=== PATIENT | male | born 1955 | race Caucasian/White ===

== ENCOUNTER → 2020-02-06 16:21 | Outpatient (REF) | payer BC, SELFPAY | LOC: ANHLAB 16:21 | PROVIDERS: Visit Provider Nurse Practitioner | DX: D49.2 Neoplasm of unspecified behavior of bone, soft tissue, and skin (principal) | CPT/HCPCS: 88305 ==

== ENCOUNTER 2020-04-18 14:00 | Outpatient (CLI) | payer BC, SELFPAY ==
--- NOTE | ~2020-04-18 | US_ITS ---
EXAMINATION: US venous doppler [facility] DATE: 04/18/2020 14:54 INDICATION: Left lower limb pain TECHNIQUE: Grayscale ultrasound images without and with compression and Doppler ultrasound images of the left lower extremity veins were obtained. COMPARISON: None. FINDINGS: The visualized portions of left common femoral vein, profunda (deep) femoral vein, femoral vein, popl iteal vein, peroneal veins, posterior tibial veins, gastrocnemius vein and greater saphenous vein out flow are patent. IMPRESSION: 1. No deep venous thrombosis in the left lower limb. Reviewed, dictated and finalized at location A. E ECOLOGIST
== END 2020-04-18 14:01 | disposition home or self-care (01) ==
PROVIDERS: PCP Physician Assistant; Visit Provider Physician Assistant
DX: M79.602 Pain in left arm (principal); M79.89 Other specified soft tissue disorders; Z72.3 Lack of physical exercise
CPT/HCPCS: 93971

== ENCOUNTER 2021-04-14 10:35 | Emergency (ER) | payer OTHER, SELFPAY ==
--- NOTE | ~2021-04-14 | CT_ITS ---
EXAMINATION: CT thoracic lumbar wo con DATE: 04/14/2021 12:54 INDICATION: Back pain. TECHNIQUE: Computed tomography (CT) of the thoracic and lumbar spine was performed without intravenou s contrast. Automated exposure control and iterative reconstruction technique were employed. The dose -length product was 1694.30 mGy-cm. COMPARISON: None FINDINGS: CT THORACIC SPINE: Calcified left lung nodules and calcified left hilar lymph nodes are consistent wi th old granulomatous disease. There are patchy airspace and groundglass opacities in the visualized p ortions of left upper lobe and the lower lobes. There is 12 degrees levoscoliosis of upper thoracic s pine. There is moderately decreased disc height at T5-T6 and T6-T7 and from T8-T9 through T11-T12 wit h endplate remodeling. There is mild chronic anterior wedging of T12 vertebral body. There is multile bharti facet joint osteoarthritis. There is mild central canal stenosis at T8-T9, T10-T11, and T11-T12. There is mild right neural foraminal stenosis at T2-T3. CT LUMBAR SPINE: There is 4 degrees dextrocurvature of lower lumbar spine. There is a chronic burst f racture of L4 with 4/5 loss of height. There are changes of posterior fusion procedure from L3 to L5 with pedicle screws in L3 and L5. There is mild chronic anterior wedging of L1 and L2 vertebral vincenzo s. There is mildly decreased disc height at L1-L2 and L2-L3 and severely decreased disc height at L5- S1 with endplate remodeling. The following disc levels are specifically discussed: L1-L2: The disc is bulging. There is moderate bilateral facet joint osteoarthritis. There is mild frank ateral neural foraminal stenosis. There is mild central canal stenosis. L2-L3: The disc is bulging. There is severe bilateral facet joint osteoarthritis. There is mild bilat eral neural foraminal stenosis. There is mild central canal stenosis. L3-L4: The disc does not extend beyond the endplate margin. There is no facet joint hypertrophy. Ther e is no neural foraminal stenosis. There is no central canal stenosis. L4-L5: The disc does not extend beyond the endplate margin. There is mild bilateral facet joint hyper trophy. There is no neural foraminal stenosis. There is no central canal stenosis. L5-S1: The disc is bulging. There is moderate bilateral facet joint osteoarthritis. There is mild frank ateral neural foraminal stenosis. There is mild central canal stenosis. IMPRESSION: 1. Multifocal lung disease suspicious for atypical pneumonia. 2. Moderate thoracic spondylosis. 3. Levoscoliosis of upper thoracic spine. Severe lower lumbar spondylosis. 4. Posterior fusion procedure from L3 to L5. Reviewed, dictated and finalized at location A. ER HUMAN RESOURCES MANAGER
[2021-04-14 10:44] VITALS: BP 163/105; PULSE 109; RESP 14; TEMP 36.6; O2SAT 98
[2021-04-14] MEDS: ACETAMINOPHEN 500 MG TABLET 1000 MG PO (12:17)
--- NOTE | 2021-04-14 12:24 | ED.BACK ---
HPI - Back Pain/Injury General Chief Complaint: Back Pain/Injury Stated Complaint: back pain since October Time Seen by Provider: 04/14/21 11:49 Source: patient Mode of arrival: ambulatory Limitations: no limitations History of Present Illness HPI Narrative: This is a 65-year-old male that presents the emergency department for low back pain over the last 5-months. Reports he had an injury when he fell off of a tractor. Reports he was evaluated after this fall at an outside facility. Reports since that fall he has been having worsening low back pain. Reports history of lumbar spine surgery years ago. The pain is radiating into the left buttock. He has not been taking anything for pain. Denies fever, saddle anesthesia, or bowel/bladder incontinence. Related Data Allergies Allergy/AdvReac Type Severity Reaction Status Date / Time No Known Allergies Allergy Mild Verified 04/14/21 12:15 Review of Systems Review of Systems: CONSTITUTIONAL: Denies fever SKIN: Denies rash MUSCULOSKELETAL: Reports back pain, joint pain, and myalgia. NEUROLOGIC: Denies numbness, or weakness. All systems reviewed & are unremarkable except as noted in HPI and below PMFSH Past Medical History Medical History (Updated 04/14/21 @ 13:54 by Rose Schaffer PA-C) Fracture of left distal radius September 2020 Surgical History Surgical History History of spinal fusion Family History Family History Mother Aneurysm Social History Social History Smoking status: Smoker, status unknown Alcohol intake: current Substance use: never 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 Gender identity (if verbalized by the patient): Male Exam Narrative: GENERAL: Well-appearing, well-nourished, and in no acute distress. HEAD: Normocephalic, atraumatic. EYES: EOMI. CHEST: Clear to auscultation. No respiratory distress. No wheezes rales or rhonchi HEART: Regular rate and rhythm. No murmur heard. Normal peripheral pulses. BACK: No midline spinal tenderness. EXTREMITIES: Normal range of motion. No edema. Strength equal in bilateral lower extremities (5/5) SKIN: Warm, dry, no rash. NEURO: No focal deficits. Alert and oriented x3. PSYCH: Normal mood and affect Course Vital Signs Vital signs: Vital Signs Temperature 97.8 F 04/14/21 10:44 Pulse Rate 109 H 04/14/21 10:44 Respiratory Rate 14 04/14/21 10:44 Blood Pressure 163/105 H 04/14/21 10:44 Pulse Oximetry 98 04/14/21 10:44 Temperature 97.8 F 04/14/21 10:44 Pulse Rate 109 H 04/14/21 10:44 Respiratory Rate 14 04/14/21 10:44 Blood Pressure 163/105 H 04/14/21 10:44 Pulse Oximetry 98 04/14/21 10:44 MDM - Back Pain/Injury MDM Narrative Medical decision making narrative: Patient presents to the emergency department for mid to low back pain ongoing for months. No recent injury or trauma. Patient is neurologically intact. CT scan of the thoracic and lumbar spine shows moderate thoracic spondylosis. Severe lower lumbar spondylosis. Posterior fusion procedure from L3-L5. Also shows findings suspicious for atypical pneumonia. Patient does report that he recently had a cold. Patient currently is afebrile and nontoxic-appearing. Oxygen saturation is normal on room air. He does report he is Covid vaccinated. He will be started on oral antibiotics for atypical pneumonia. Instructed on continued care of low back pain. He is to follow-up with primary care doctor. He was given warnings to return to the ER Imaging Data Radiologist's impression: ITS Impressions Thoracic/Lumbar Spine CT 04/14/21 13:02 IMPRESSION: 1. Multifocal lung disease suspicious for atypical pneumonia. 2. Moderate thoracic spondylosis. 3. Levoscoliosis of upper thoracic spine. Severe lower lumbar spondylosis. 4. Posterior fusion
== END 2021-04-14 14:07 | disposition home or self-care (01) ==
PROVIDERS: Emergency Provider Emergency Medicine
DX: M54.50 Low back pain, unspecified (principal); J18.9 Pneumonia, unspecified organism; Z98.1 Arthrodesis status; M47.814 Spondylosis without myelopathy or radiculopathy, thoracic region; M47.816 Spondylosis without myelopathy or radiculopathy, lumbar region
CPT/HCPCS: 72128; 72131; 99284; A9270

== ENCOUNTER 2023-03-09 15:22 | Outpatient (CLI) | payer MEDICARE, SELFPAY ==
[2023-03-09 16:20] LABS: Alanine Aminotransferase 27 U/L (6-50); Albumin Level 4.6 g/dL (3.5-5.1); Alkaline Phosphatase 59 U/L (38-126); Anion Gap 6 mmol/L (8-16); Aspartate Amino Transferase 29 U/L (17-59); Bilirubin,Total 1.1 mg/dL (0.2-1.3); Blood Urea Nitrogen 17 mg/dL (9-20); Calcium 9.3 mg/dL (8.4-10.2); Carbon Dioxide 27 mmol/L (22-30); Chloride 106 mmol/L (98-107); Cholesterol 193 mg/dL (0-200); Estimated Glomerular Filt Rate > 60; Glucose 98 mg/dL (65-110); HDL Direct 57 mg/dL; Sodium 139 mmol/L (137-145); Triglycerides 64 mg/dL (<150)
[2023-03-09 16:30] LABS: LDL Cholesterol Direct 101 mg/dL
== END 2023-03-09 15:23 | disposition home or self-care (01) ==
PROVIDERS: PCP Family Medicine; Visit Provider Physician Assistant Medical
DX: E78.2 Mixed hyperlipidemia (principal)
CPT/HCPCS: 36415; 80053; 80061

== ENCOUNTER 2023-09-07 13:53 | Outpatient (CLI) | payer MEDICARE, SELFPAY ==
[2023-09-07 14:35] LABS: Alanine Aminotransferase 17 U/L (6-50); Albumin Level 4.9 g/dL (3.5-5.1); Alkaline Phosphatase 61 U/L (38-126); Anion Gap 12 mmol/L (4-12); Aspartate Amino Transferase 23 U/L (17-59); Blood Urea Nitrogen 17 mg/dL (9-20); Calcium 9.8 mg/dL (8.4-10.2); Carbon Dioxide 22 mmol/L (22-30); Chloride 108 mmol/L (98-107); Cholesterol 200 mg/dL (0-200); Estimated Glomerular Filt Rate > 60; Glucose 106 mg/dL (65-110); HDL Direct 59 mg/dL; Potassium 3.9 mmol/L (3.4-5.0); Sodium 142 mmol/L (137-145); Triglycerides 78 mg/dL (<150)
[2023-09-07 14:47] LABS: LDL Cholesterol Direct 117 mg/dL
[2023-09-07 15:05] LABS: Prostate Specific Antigen 0.5 ng/mL (< OR = 4.0)
== END 2023-09-07 13:54 | disposition home or self-care (01) ==
LOC: ANHLAB 13:58
PROVIDERS: PCP Family Medicine; Visit Provider Physician Assistant Medical
DX: Z12.5 Encounter for screening for malignant neoplasm of prostate (principal); E78.2 Mixed hyperlipidemia
CPT/HCPCS: 36415; 80053; 80061; 84153; G0103

== ENCOUNTER 2024-03-09 12:12 | Outpatient (CLI) | payer MEDICARE, SELFPAY ==
--- NOTE | ~2024-03-09 | XR_ITS ---
XR chest 2V Ordering provider: Batsheva Miranda PA-C History: 68 years Male with . R06.00 - Dyspnea, unspecified, SOB . Comparison: May 02, 2008 FINDINGS: MEDIASTINUM: The cardiac silhouette is slightly enlarged. Congestive dillan. LUNGS: No infiltrates, effusions or pneumothorax. Bilateral interstitial changes are noted. Pulmonary edema or pneumonitis cannot be excluded. OTHER: No free air under the diaphragm. IMPRESSION: Cardiomegaly with congestive dillan and bilateral interstitial changes which may indicate pulmonary kym ma versus pneumonitis. Clinical correlation and follow-up advised. Reviewed, dictated and finalized at location A. IMPRESSION: Cardiomegaly with congestive dillan and bilateral interstitial changes which may indicate pulmonary edema versus pneumonitis. Clinical correlation and follow-up advised.
--- NOTE | 2024-03-09 12:32 | ECG_ITS ---
Test Date: 2024-03-09 12:49:42 Measurements Intervals [place] Rate: 152 P: 0 SD: 0 QRS: 22 QRSD: 90 T: -4 QT: 284 QTc: 452 Interpretive Statements ATRIAL FIBRILLATION WITH RAPID VENTRICULAR RESPONSE WITH ABERRANT CONDUCTION OR VENTRICULAR PREMATURE COMPLEXES CRITICAL TEST RESULT No previous ECG available for comparison Electronically Signed On 03-09-2024 12:55:08 CDT by Mandeep Hoff M.D.
[2024-03-09 13:08] LABS: Alanine Aminotransferase 28 U/L (6-50); Albumin Level 4.3 g/dL (3.5-5.1); Alkaline Phosphatase 40 U/L (38-126); Anion Gap 8 mmol/L (4-12); Aspartate Amino Transferase 31 U/L (17-59); Bilirubin,Total 1.2 mg/dL (0.2-1.3); Blood Urea Nitrogen 27 mg/dL (9-20); Calcium 8.7 mg/dL (8.4-10.2); Carbon Dioxide 23 mmol/L (22-30); Chloride 108 mmol/L (98-107); Cholesterol 160 mg/dL (0-200); Estimated Glomerular Filt Rate > 60; Glucose 102 mg/dL (65-110); HDL Direct 63 mg/dL; Potassium 4.2 mmol/L (3.4-5.0); Sodium 139 mmol/L (137-145); Triglycerides 65 mg/dL (<150)
[2024-03-09 13:18] LABS: LDL Cholesterol Direct 69 mg/dL
== END 2024-03-09 12:13 | disposition home or self-care (01) ==
PROVIDERS: PCP Family Medicine; Visit Provider Student in an Organized Health Care Education/Training Program
DX: I49.9 Cardiac arrhythmia, unspecified (principal); R06.00 Dyspnea, unspecified; I10 Essential (primary) hypertension
CPT/HCPCS: 36415; 71046; 80053; 80061; 93005

== ENCOUNTER 2024-03-09 13:56 | Observation (INO) | payer MEDICARE, SELFPAY ==
[2024-03-09] VITALS (21 sets, daily range): BP systolic 103–149; BP diastolic 68–101; PULSE 67–150; RESP 15–21; TEMP 36.6–36.7; O2SAT 94–100; BMI 34.7
--- NOTE | ~2024-03-09 | CT_ITS ---
CTA chest PE protocol Ordering provider: Jnenifer Vazquez MD History: 68 years Male with . afib, positive dimer . Comparison: None. Technique: CT angiogram chest was performed following timed intravenous injection of contrast. Thin s lice axial images and reformatted coronal images were obtained. Three dimensional reformatted images of the chest were also obtained using a [employer] workstation. . Automated exposure control and iterati ve reconstruction technique were employed. The dose-length product was 853.60 mGy-cm. Findings: PULMONARY ARTERIES: No pulmonary embolus. VISUALIZED THORACIC INLET: Normal. MEDIASTINUM: Aorta/coronary arteries: Ascending aorta measures 4.6 cm. Soft tissue density seen around the ascendi ng aorta and slightly anterior to the arch. No contrast extravasation is seen. Possibility of a peric ardial effusion and less likely hematoma cannot be excluded. Clinical correlation and echocardiograph y is advised. The Hounsfield unit is 8 which is in favor of pericardial effusion. Heart/other: The heart is moderately enlarged. Trace of pericardial effusion is seen around the hear t. Lymph nodes: No mediastinal or hilar adenopathy. LUNGS: No pulmonary nodules or masses. No infiltrates or effusions. No pneumothorax. VISUALIZED UPPER ABDOMEN: Cholelithiasis. Left adrenal adenoma measuring 2.2 cm. Otherwise, the visua lized upper abdomen is normal. MUSCULOSKELETAL: Soft tissues: The superficial soft tissues are normal. Bones: Age appropriate degenerative changes of the spine. IMPRESSION: 1. Fluid seen anterior to the ascending aorta and arch which is most likely pericardial effusion wit h minimal effusion seen posteriorly to the heart. Echocardiography for further evaluation advised. 2. No pulmonary embolism. 3. No acute cardiopulmonary pathology. 4. Cardiomegaly 5. Cholelithiasis. 6. Left adrenal adenoma. Reviewed, dictated and finalized at location A. IMPRESSION: 1. Fluid seen anterior to the ascending aorta and arch which is most likely pe ricardial effusion with minimal effusion seen posteriorly to the heart. Echocar diography for further evaluation advised. 2. No pulmonary embolism. 3. No acute cardiopulmonary pathology. 4. Cardiomegaly 5. Cholelithiasis. 6. Left adrenal adenoma.
--- NOTE | 2024-03-09 14:09 | ED_ITS ---
HPI - Arrhythmia/Palpitations General Chief Complaint: Arrhythmia/Palpitations <Rose Schaffer PA-C - Last Filed: 03/10/24 11:45> Stated Complaint: ABNORMAL EKG <Rose Schaffer PA-C - Last Filed: 03/10/24 11:45> Time Seen by Provider: 03/09/24 14:09 <Rose Schaffer PA-C - Last Filed: 03/10/24 11:45> Focused HPI: This is a 68 year old male that presents to the ER for abnormal outpatient EKG. Reports he was called and told to come to the ER. Noted to be in Afib with RVR. No history of this. Does report he has been getting short of breath with exertion. GENERAL: Well-appearing, well-nourished, and in no acute distress. HEAD: Normocephalic, atraumatic. CHEST: Clear to auscultation. ?No respiratory distress. HEART: Tachycardic NEURO: ?Alert and oriented x3. Patient screened in triage and initial orders placed.? ?Additional care and disposition to be based upon?diagnostic testing and treatment. <Rose Schaffer PA-C - Last Filed: 03/10/24 11:45> History of Present Illness HPI narrative: 68-year-old male with history of hypertension presenting with irregular heartbeat. 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 States he has been increasingly short of breath over the last week or so. He initially attributed his symptoms to marinelli dust. He went to see his primary yesterday who ordered an outpatient EKG. This was performed today and he received a call saying to come to the ER for 1. He he currently denies complaints. <Jennifer Vazquez MD - Last Filed: 03/13/24 14:09> Related Data Allergies/Adverse Reactions: Allergies Allergy/AdvReac Type Severity Reaction Status Date / Time No Known Allergies Allergy Mild Verified 03/09/24 21:31 <Rose Schaffer PA-C - Last Filed: 03/10/24 11:45> Review of Systems Review of Systems: All systems reviewed & are unremarkable except as noted in HPI and below <Jennifer Vazquez MD - Last Filed: 03/13/24 14:09> [facility] Past Medical History Medical History: Medical History (Updated 03/11/24 @ 09:23 by Won Mcginnis DO) Fracture of left distal radius September 2020 Obesity (BMI 30.0-34.9) Skin neoplasm <Rose Schaffer PA-C - Last Filed: 03/10/24 11:45> Surgical History Surgical History: Surgical History History of spinal fusion <Rose Schaffer PA-C - Last Filed: 03/10/24 11:45> Family History Family History: Family History Mother Aneurysm Breast cancer Father , At age 85 Colon cancer <Rose Schaffer PA-C - Last Filed: 03/10/24 11:45> Social History Social History: Social History (Updated 03/10/24 @ 04:26 by Abigail Saravia DO) 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 He is single and has never been . He does not have children. He and his brother live in the same farm house that they were raised in. He has a medium-sized dog at home. Code status: Full code (he would not want to be on long-term ventilator support) Surrogate decision maker: Josh Morales (brother) Smoking status: Never smoker Alcohol intake: current Drinks per week: 5 Substance use: never Substance use type: does not use Do You Feel Safe in your Home?: Yes Lack of Transportation: No Lack of Food: Never True Current Housing: I Have Housing Concerned About Future Housing: No Difficulty Paying Gas/Electric Bills: No Difficulty Paying for Meds: No Currently Unemployed: No Education: Decline to Answer Difficulty w/ Childcare or Family Care: No Living arrangements: alone Occupation/Education: occupation 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 EYES: PERRLA and EOMI. ENT: Mucous membranes moist. NECK: Supple. CHEST: Clear to auscultation. No respiratory distress. HEART: tachycardic, irregular rhythm ABDOMEN: Soft, nontender, nondistended EXTREMITIES: Normal range of motion. No edema. SKIN: Warm, dry, no rash. NEURO: No focal deficits. Alert and oriented x3. PSYCH: Normal mood and affect. <Jennifer Vazquez MD - Last Filed: 03/13/24 14:09> Course Vital Signs Vital signs: Vital Signs Temperature 97.8 F 03/09/24 13:57 Pulse Rate 150 H 03/09/24 13:57 Respiratory Rate 20 03/09/24 13:57 Blood Pressure 148/101 H 03/09/24 13:57 Pulse Oximetry 100 03/09/24 13:57 Oxygen Delivery Room Air 03/09/24 13:57 Temperature 97.5 F L 03/13/24 11:22 Pulse Rate 116 H 03/13/24 12:00 Respiratory Rate 20 03/13/24 11:22 Blood Pressure 120/89 03/13/24 11:22 Pulse Oximetry 97 03/13/24 11:22 Oxygen Delivery Room Air 03/13/24 12:00 Fraction of Inspired Oxygen 03/11/24 16:00 <Rose Schaffer PA-C - Last Filed: 03/10/24 11:45> Vital Signs Temperature 97.8 F 03/09/24 13:57 Pulse Rate 150 H 03/09/24 13:57 Respiratory Rate 20 03/09/24 13:57 Blood Pressure 148/101 H 03/09/24 13:57 Pulse Oximetry 100 03/09/24 13:57 Oxygen Delivery Room Air 03/09/24 13:57 Temperature 97.5 F L 03/13/24 11:22 Pulse Rate 116 H 03/13/24 12:00 Respiratory Rate 20 03/13/24 11:22 Blood Pressure 120/89 03/13/24 11:22 Pulse Oximetry 97 03/13/24 11:22 Oxygen Delivery Room Air 03/13/24 12:00 Fraction of Inspired Oxygen 21 03/11/24 16:00 <Jennifer Vazquez MD - Last Filed: 03/13/24 14:09> MDM - Arrhythmia/Palpitations MDM Narrative Medical decision making narrative: 68-year-old male presenting with irregular heartbeat. On arrival, patient is tachycardic in the 150s. EKG per my interpretation shows atrial fibrillation with RVR. Remainder of vital signs are within normal limits. Patient received a dose of 10 mg diltiazem and his rate improved temporarily. Unfortunately he bounced back up to the 140s so diltiazem drip was initiated. Blood work without significant abnormalities. CTA of the chest was obtained due to elevated D-dimer. There is no evidence of pulmonary embolus. They're reading possible pericardial effusion and echocardiogram is recommended. Patient requires admission for further management of new onset atrial fibrillation with rapid ventricular response. I spoke with the hospitalist who has accepted him for admission. He is agreeable with this plan. <Jennifer Vazquez MD - Last Filed: 03/13/24 14:09> Differential Diagnosis Differential diagnosis: Likely palpitations, sinus tachycardia, artial fibrillation and artial flutter <Jennifer Vazquez MD - Last Filed: 03/13/24 14:09> Medical Records Attestation: I reviewed the patient's medical records. <Jennifer Vazquez MD - Last Filed: 03/13/24 14:09> Lab Data Attestation: I reviewed the patient's lab results. <Jennifer Vazquez MD - Last Pradip ed: 03/13/24 14:09> Result diagrams: 03/12/24 04:34 03/12/24 04:33 <Rose Schaffer PA-C - Last Filed: 03/10/24 11:45> Labs: Lab Results 03/09/24 03/09/24 Range/Units 14:16 17:02 WBC 7.0 (4.5-10.0) K/mm3 RBC 4.05 L (4.6-6.20) M/mm3 Hgb 13.2 L (14.0-18.0) g/dL Hct 39.3 L (42.0-52.0) % MCV 97.0 (80-100) fl MCH 32.6 (26-34) pg MCHC 33.6 (32-36) g/dl RDW 13.5 (11.5-14.5) % Plt Count 182 (150-375) k/mm3 MPV 10.7 H (7.4-10.4) fl Immature Gran % (Auto) 0.3 (0-0.5) % Neut % (Auto) 70.9 (45.5-73.1) % Lymph % (Auto) 21.0 (18.3-44.2) % [place] % (Auto) 6.7 (2.6-8.5) % Eos % (Auto) 0.7 (0-4.4) % Baso % (Auto) 0.4 (0.2-1.2) % Lymph # (Auto) 1.47 (0.9-3.2) K/mm3 [place] # (Auto) 0.5 (0.1-0.6) K/mm3 Eos # (Auto) 0.1 (0-0.3) K/mm3 Baso # (Auto) 0.0 (0.0-0.1) K/mm3 Abs Immat Gran (auto) 0.02 (0.00-0.031) K/mm3 Absolute Neuts (auto) 5.0 (1.3-6.7) K/mm3 Absolute Nucleated RBC 0.000 (0.0-0.012) K/mm3 Nucleated RBC % 0.0 (0.0-0.2) % PT 13.5 (11.1-14.7) Seconds INR 1.0 APTT 27.6 (22.3-36.8) Seconds D-Dimer 1.22 H (<0.48) ug/mL Sodium 141 (137-145) mmol/L Potassium 4.1 (3.4-5.0) mmol/L Chloride 107 (98-107) mmol/L Carbon Dioxide 23 (22-30) mmol/L Anion Gap 11 (4-12) mmol/L BUN 26 H (9-20) mg/dL Creatinine 0.90 (0.7-1.3) mg/dL Estim Creat Clear Calc 80 ml/min Estimated GFR > 60 (59 - ) Glucose 100 (65-110) mg/dL Calcium 9.0 (8.4-10.2) mg/dL Total Bilirubin 1.1 (0.2-1.3) mg/dL AST 29 (17-59) U/L ALT 30 (6-50) U/L Alkaline Phosphatase 53 (38-126) U/L Troponin I < 0.012 < 0.012 (0.000-0.034) ng/mL Total Protein 8.0 (6.3-8.2) g/dL Albumin 4.5 (3.5-5.1) g/dL Lipase 64 (23-300) U/L TSH (Reflex) 2.060 (0.465-4.68) uIU/mL <Rose Schaffer PA-C - Last Filed: 03/10/24 11:45> Lab Results 03/09/24 03/09/24 Range/Units 14:16 17:02 WBC 7.0 (4.5-10.0) K/mm3 RBC 4.05 L (4.6-6.20) M/mm3 Hgb 13.2 L (14.0-18.0) g/dL Hct 39.3 L (42.0-52.0) % MCV 97.0 (80-100) fl MCH 32.6 (26-34) pg MCHC 33.6 (32-36) g/dl RDW 13.5 (11.5-14.5) % Plt Count 182 (150-375) k/mm3 MPV 10.7 H (7.4-10.4) fl Immature Gran % (Auto) 0.3 (0-0.5) % Neut % (Auto) 70.9 (45.5-73.1) % Lymph % (Auto) 21.0 (18.3-44.2) % [place] % (Auto) 6.7 (2.6-8.5) % Eos % (Auto) 0.7 (0-4.4) % Baso % (Auto) 0.4 (0.2-1.2) % Lymph # (Auto) 1.47 (0.9-3.2) K/mm3 [place] # (Auto) 0.5 (0.1-0.6) K/mm3 Eos # (Auto) 0.1 (0-0.3) K/mm3 Baso # (Auto) 0.0 (0.0-0.1) K/mm3 Abs Immat Gran (auto) 0.02 (0.00-0.031) K/mm3 Absolute Neuts (auto) 5.0 (1.3-6.7) K/mm3 Absolute Nucleated RBC 0.000 (0.0-0.012) K/mm3 Nucleated RBC % 0.0 (0.0-0.2) % PT 13.5 (11.1-14.7) Seconds INR 1.0 APTT 27.6 (22.3-36.8) Seconds D-Dimer 1.22 H (<0.48) ug/mL Sodium 141 (137-145) mmol/L Potassium 4.1 (3.4-5.0) mmol/L Chloride 107 (98-107) mmol/L Carbon Dioxide 23 (22-30) mmol/L Anion Gap 11 (4-12) mmol/L BUN 26 H (9-20) mg/dL Creatinine 0.90 (0.7-1.3) mg/dL Estim Creat Clear Calc 80 ml/min Estimated GFR > 60 (59 - ) Glucose 100 (65-110) mg/dL Calcium 9.0 (8.4-10.2) mg/dL Total Bilirubin 1.1 (0.2-1.3) mg/dL AST 29 (17-59) U/L ALT 30 (6-50) U/L Alkaline Phosphatase 53 (38-126) U/L Troponin I < 0.012 < 0.012 (0.000-0.034) ng/mL Total Protein 8.0 (6.3-8.2) g/dL Albumin 4.5 (3.5-5.1) g/dL Lipase 64 (23-300) U/L TSH (Reflex) 2.060 (0.465-4.68) uIU/mL <Jennifer Vazquez MD - Last Filed: 03/13/24 14:09> Imaging Data Radiologist's impression: ITS Impressions Chest CTA 03/09/24 17:30 IMPRESSION: 1. Fluid seen anterior to the ascending aorta and arch which is most likely pericardial effusion with minimal effusion seen posteriorly to the heart. Echocardiography for further evaluation advised. 2. No pulmonary embolism. 3. No acute cardiopulmonary pathology. 4. Cardiomegaly 5. Cholelithiasis. 6. Left adrenal adenoma. <Jennifer Vazquez MD - Last Filed: 03/13/24 14:09> Critical Care Time Critical Care Time Critical Care Time: Yes <Rose Schaffer PA-C - Last Filed: 03/10/24 11:45> Total Critical Care Time: 35 <Rose Schaffer PA-C - Last Filed: 03/10/24 11:45> Discharge Plan Discharge Clinical Impression: Atrial fibrillation with RVR <Rose Schaffer PA-C - Last Filed: 03/10/24 11:45> Patient Disposition: Still a Patient <Rose Schaffer PA-C - Last Filed: 03/10/24 11:45> Condition: Improved <Rose Schaffer PA-C - Last Filed: 03/10/24 11:45>
--- NOTE | 2024-03-09 14:09 | ECG_ITS ---
Test Date: 2024-03-09 14:12:08 Measurements Intervals [place] Rate: 142 P: 0 AR: 0 QRS: -14 QRSD: 87 T: 36 QT: 291 QTc: 447 Interpretive Statements ATRIAL FIBRILLATION WITH RAPID VENTRICULAR RESPONSE ABNORMAL RHYTHM ECG Compared to ECG 03/09/2024 12:49:42 Ventricular premature complex(es) no longer present Aberrant conduction of supraventricular beat(s) no longer present Electronically Signed On 03-09-2024 15:41:15 CDT by Mandeep Hoff M.D.
[2024-03-09 14:32] LABS: Basophils Percent Auto 0.4 % (0.2-1.2); Eosinophils Absolute Auto 0.1 K/mm3 (0-0.3); Eosinophils Percent Auto 0.7 % (0-4.4); Hematocrit 39.3 % (42.0-52.0); Hemoglobin 13.2 g/dL (14.0-18.0); Immature Granulocyte Absolute 0.02 K/mm3 (0.00-0.031); Immature Granulocyte Percent A 0.3 % (0-0.5); Lymphocytes Absolute Auto 1.47 K/mm3 (0.9-3.2); Mean Corpuscular HGB Conc 33.6 g/dl (32-36); Mean Corpuscular Hemoglobin 32.6 pg (26-34); Mean Platelet Volume 10.7 fl (7.4-10.4); Monocytes Absolute Auto 0.5 K/mm3 (0.1-0.6); Monocytes Percent Auto 6.7 % (2.6-8.5); Neutrophils Percent Auto 70.9 % (45.5-73.1); Platelet Count Result 182 k/mm3 (150-375); Red Blood Count 4.05 M/mm3 (4.6-6.20); Red Cell Distribution Width 13.5 % (11.5-14.5)
[2024-03-09 14:44] LABS: Alanine Aminotransferase 30 U/L (6-50); Albumin Level 4.5 g/dL (3.5-5.1); Alkaline Phosphatase 53 U/L (38-126); Anion Gap 11 mmol/L (4-12); Aspartate Amino Transferase 29 U/L (17-59); Bilirubin,Total 1.1 mg/dL (0.2-1.3); Blood Urea Nitrogen 26 mg/dL (9-20); Carbon Dioxide 23 mmol/L (22-30); Chloride 107 mmol/L (98-107); Estimated CRCL calculation 80 ml/min; Estimated Glomerular Filt Rate > 60; Glucose 100 mg/dL (65-110); Lipase 64 U/L (23-300); Potassium 4.1 mmol/L (3.4-5.0); Sodium 141 mmol/L (137-145)
[2024-03-09 14:45] LABS: Partial Thromboplastin Time 27.6 Seconds (22.3-36.8); Prothrombin Time 13.5 Seconds (11.1-14.7)
[2024-03-09] MEDS: dilTIAZem HCl INJ 25 MG/5 ML VIAL 10 MG IV PUSH (14:51)
[2024-03-09 14:53] LABS: D Dimer 1.22 ug/mL (<0.48)
[2024-03-09 14:54] LABS: Troponin I < 0.012 ng/mL (0.000-0.034)
--- NOTE | 2024-03-09 16:58 | ECG_ITS ---
Test Date: 2024-03-09 17:02:18 Measurements Intervals [place] Rate: 136 P: 0 DC: 0 QRS: -6 QRSD: 86 T: 35 QT: 301 QTc: 453 Interpretive Statements ATRIAL FIBRILLATION WITH RAPID VENTRICULAR RESPONSE BORDERLINE R WAVE PROGRESSION, ANTERIOR LEADS BASELINE ARTIFACT- I, II, III, AVR, AVL, AVF ABNORMAL ECG Compared to ECG 03/09/2024 14:12:08 No significant changes Electronically Signed On 03-10-2024 06:27:43 CDT by Won Mcginnis D.O.
[2024-03-09] MEDS: dilTIAZem 100 MG/100 ML 100 MG/100 ML BAG IV CONT (17:28)
[2024-03-09 17:30] LABS: Troponin I < 0.012 ng/mL (0.000-0.034)
--- NOTE | 2024-03-09 21:42 | P.HP_ITS ---
H&P: HPI History of Present Illness Date/Time: 03/09/24 21:42 Chief Complaint: AFib RVR on outpatient EKG Narrative: 68-year-old loquacious male with past medical history of essential hypertension and obesity who presented to the ER from home due to new onset AFib. The patient had been evaluated primary care provider's office on the for his annual health screening. At that time he also reported symptoms of dyspnea on exertion, wheezing and coughing as well as some nasal congestion. He had been having some increased shortness of breath over the last week or so. 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 However he also reports 3 or more weeks of intermittent palpitations, shortness of breath and lower extremity swelling. It also sounds as if he may be having some mild orthopnea. He denies any chest pain. His heart rhythm was noted to be irregular but with a regular rate at his doctor's office and an EKG was ordered and completed on the . When he went to get the EKG was in AFib RVR and he was directed to go to the ER. Recur with the results of the EKG being known his PA had ordered script for metoprolol and Eliquis. But the patient came to the ER instead of filling the scripts. Initial EKG on arrival to the ER also demonstrated AFib with RVR with a rate of 140 to with normal intervals. He also had a 2nd EKG performed in the ER which also demonstrated AFib with rate of 136 (personally reviewed and interpreted). Patient received 10 mg of IV Cardizem and was started on Cardizem drip. Once he arrived in the IMU I ordered p.o. metoprolol 25 mg. About an hour after metoprolol administration patient's heart rate had dropped to 50s and Cardizem drip was discontinued. Review of Systems Review of Systems: 12 systems were reviewed with pertinent positives and negatives per HPI. Except as documented in the HPI, all other systems were reviewed and are negative. 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 He is single and has never been . He does not have children. He and his brother live in the same farm house that they were raised in. He has a medium-sized dog at home. Code status: Full code (he would not want to be on long-term ventilator support) Surrogate decision maker: Josh Morales (brother) Smoking status: Never smoker Alcohol intake: current Drinks per week: 5 Substance use: never Substance use type: does not use Do You Feel Safe in your Home?: Yes Lack of Transportation: No Lack of Food: Never True Current Housing: I Have Housing Concerned About Future Housing: No Difficulty Paying Gas/Electric Bills: No Difficulty Paying for Meds: No Currently Unemployed: No Education: Decline to Answer Difficulty w/ Childcare or Family Care: No Living arrangements: alone Occupation/Education: occupation 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 Gender identity (if verbalized by the patient): Male Sexual Orientation (if Verbalized by the Patient): Straight or Heterosexual Spiritual care concerns: No Agree to blood products: Yes Meds Home Medications and Allergies Home Medications Medication Instructions Recorded Confirmed Type amlodipine 5 mg tablet 5 mg PO DAILY #90 tabs 11/19/23 03/09/24 Rx Allergies Allergy/AdvReac Type Severity Reaction Status Date / Time No Known Allergies Allergy Mild Verified 03/09/24 21:31 Vital Signs Vital Signs - 24 hr 03/09/24 13:57 03/09/24 14:41 03/09/24 14:42 Temperature 97.8 F 98.1 F Pulse Rate 150 H 144 H 138 H Respiratory Rate 20 17 Blood Pressure 148/101 H 136/93 H Pulse Oximetry 100 96 Oxygen Delivery Room Air 03/09/24 14:59 03/09/24 16:09 03/09/24 16:46 Temperature Pulse Rate 106 H 101 H 141 H Respiratory Rate 18 18 21 H Blood Pressure 110/86 114/87 149/88 H Pulse Oximetry 95 94 97 Oxygen Delivery 03/09/24 17:04 10/31/24 17:28 03/09/24 17:31 Temperature 98.0 F Pulse Rate 129 H 135 H 135 H Respiratory Rate 18 18 Blood Pressure 130/93 H 126/92 H Pulse Oximetry 98 98 Oxygen Delivery 03/09/24 18:00 03/09/24 18:33 03/09/24 18:34 Temperature 97.9 F Pulse Rate 142 H 133 H 134 H Respiratory Rate 15 Blood Pressure 130/73 107/73 107/73 Pulse Oximetry 96 Oxygen Delivery 03/09/24 18:01 03/09/24 19:23 03/09/24 20:47 Temperature Pulse Rate 137 H 101 H 82 Respiratory Rate 21 H 18 18 Blood Pressure 130/73 103/68 110/76 Pulse Oximetry 95 94 96 Oxygen Delivery Exam Narrative: Weight 100.6 kg BMI 34.7 Const: Other: Obese, no acute distress, appears stated age HENMT: Other: Crowded posterior oropharynx, large neck circumference, head is normocephalic atraumatic, mucous membranes are tacky Eyes: Other: Pupils are equal and reactive, no scleral icterus, no conjunctival pallor Neck: Other: Large neck circumference, no lymphadenopathy, supple Resp: Other: Clear to auscultation bilaterally, no increased work of breathing Cardio: Other: Irregularly irregular, rate controlled, 2+ bilateral radial pedal pulses, no JVD, no murmur GI: Other: Obese, soft, distended, normoactive bowel sounds, nontender Back/Spine/Pelvis: Other: Mild thoracic kyphosis Skin: Other: Tanned, non jaundice Neuro: Other: Alert oriented, speech is clear, no facial asymmetry Extrem: Other: One to 2+ lower extremity edema ankle, equal strength bilateral upper and lower extremities Psych: Other: Appropriate mood and affect, pleasant and cooperative, judgment and insight intact H&P: Results Labs Labs: Laboratory Tests 03/09/24 14:16 03/09/24 14:16 03/09/24 03/09/24 03/09/24 14:16 17:02 21:24 WBC 7.0 RBC 4.05 L Hgb 13.2 L Hct 39.3 L MCV 97.0 MCH 32.6 MCHC 33.6 RDW 13.5 Plt Count 182 MPV 10.7 H Immature Gran % (Auto) 0.3 Neut % (Auto) 70.9 Lymph % (Auto) 21.0 Barnes % (Auto) 6.7 Eos % (Auto) 0.7 Baso % (Auto) 0.4 Lymph # (Auto) 1.47 Barnes # (Auto) 0.5 Eos # (Auto) 0.1 Baso # (Auto) 0.0 Abs Immat Gran (auto) 0.02 Absolute Neuts (auto) 5.0 Absolute Nucleated RBC 0.000 Nucleated RBC % 0.0 PT 13.5 INR 1.0 APTT 27.6 D-Dimer 1.22 H Sodium 141 Potassium 4.1 Chloride 107 Carbon Dioxide 23 Anion Gap 11 BUN 26 H Creatinine 0.90 Estim Creat Clear Calc 80 Estimated GFR > 60 Glucose 100 Calcium 9.0 Total Bilirubin 1.1 AST 29 ALT 30 Alkaline Phosphatase 53 Troponin I < 0.012 < 0.012 Pending Total Protein 8.0 Albumin 4.5 Lipase 64 TSH (Reflex) 2.060 Impressions Chest CTA 03/09/24 17:30 (personally reviewed) IMPRESSION: 1. Fluid seen anterior to the ascending aorta and arch which is most likely pericardial effusion with minimal effusion seen posteriorly to the heart. Echocardiography for further evaluation advised. 2. No pulmonary embolism. 3. No acute cardiopulmonary pathology. 4. Cardiomegaly 5. Cholelithiasis. 6. Left adrenal adenoma. Chest x-ray: Personally reviewed and interpreted. Radiologic interpretation pending. Mild cardiomegaly, possibly some pulmonary vascular congestion, no pleural effusion noted, exam is slightly rotated Assessment and Plan Assessment and plan (1) Atrial fibrillation with RVR: Code(s): I48.91 - Unspecified atrial fibrillation Status: Acute (2) Hypertension: Qualifiers: Hypertension type: primary hypertension Qualified Code(s): I10 - Essential (primary) hypertension Code(s): I10 - Essential (primary) hypertension Status: Acute (3) Obesity (BMI 30.0-34.9): Code(s): E66.811 - Obesity, class 1 Status: Acute Plan Patient presents with AFib RVR. Onset of AFib is uncertain but patient has been certainly symptomatic for at least couple of weeks. Patient has had 3 cardiac enzymes are negative so no evidence of acute cardiac ischemia. He does have cardiomegaly on chest x-ray. Will check echocardiogram to further evaluate c ardiac structure and function. The patient was started on Cardizem drip of 5 mg in after he was given a 10 mg bolus in the ER. Patient's heart rate is down to the 80s to 110s. Will start the patient on metoprolol 25 mg q.12 hours. Echocardiogram has been ordered. The patient's outpatient provider had already made a referral to Cardiology for outpatient follow-up. The patient's chads Vasc score is 2. Will order Eliquis. about an hour after the patient took metoprolol the patient's rate dropped into the 50s and 60s. Cardizem drip has been discontinued. The patient is obese he in could have underlying untreated obstructive sleep apnea with a stopping score of 4. He would benefit from outpatient polysomnogram to rule out obstructive sleep apnea. Will continue the patient's home Norvasc and in addition to the newly started metoprolol. 35 minute spent in critical care activities. Patient has been admitted as observation status. Due to a high probability of clinically significant, life threatening deterioration, the patient required my highest level of preparedness to intervene emergently and I personally spent this critical care time directly and personally managing the patient. This critical care time included obtaining a history; examining the patient; pulse oximetry; ordering and review of studies; arranging urgent treatment with development of a management plan; evaluation of patient's response to treatment; frequent reassessment; and discussions with oth er providers. It was exclusive of separately billable procedures and treating other patients and teaching time. Please see Assessment and Plan section and the rest of the note for further information on patient assessment and treatment. Quality VTE Prophylaxis VTE prophylaxis: pharmacologic ordered (Eliquis) Hospitalist [facility] Advance Care Plan I have confirmed that the patient's Advanced Care Plan is present, code status is documented, or surrogate decision maker is listed in patient medical record.: Yes Medication Reconciliation I have utilized all available resources to obtain, update and review the patients current medications (includes all prescriptions, OTC, herbals, cannabis, and nutritional supplements).: Yes
[2024-03-09 21:56] LABS: Troponin I < 0.012 ng/mL (0.000-0.034)
[2024-03-09] MEDS: APIXABAN 5 MG TABLET PO (22:16)
[2024-03-09] MEDS: METOPROLOL TARTRATE 25 MG TABLET PO (22:16)
--- NOTE | 2024-03-09 23:24 | ADMGEN ---
This patient, Savage Morales, was admitted to IMU Room 211-01 at 2107. Patient/family oriented to hospital policies and general routines including ID bracelet, bed and alarms, visiting hours, pain management, procedures, bathroom and other care routines, personal items, smoking policy, room service/diet, and visiting hours. Information on how to activate the Rapid Response Team has been discussed. Patient/Family are encouraged to report perceived risks to care and to ask questions if they do not understand what they are told or what they should do.
[2024-03-10] VITALS (23 sets, daily range): BP systolic 116–145; BP diastolic 75–97; PULSE 57–145; RESP 20; TEMP 36.5–36.8; O2SAT 94–98
--- NOTE | 2024-03-10 | ECHO_ITS ---
Patient Info Name: Savage Morales Age: 68 years : 1955 Gender: Male Ht: 67 in Wt: 215 lbs BSA: 2.18 m2 HR: 145 bpm BP: 133 / 93 mmHg Heart Rhythm: Atrial Fibrillation Technical Quality: Good Exam Date: 03/10/2024 9:51 AM Exam Location: Echo Lab Patient Status: Inpatient Admit Date: 03/09/2024 Staff Ordering Physician: Abigail Saravia DO Aviation Medicine Specialist: Jaime Tay RDCS Attending Provider: Jeff Gu MD Referring Physician: Rani HEARD; Exam Type: CA echo doppler color flow Study Info Indications - new onset a fib Complete two-dimensional, color flow and Doppler transthoracic echocardiogram is performed. Summary 1. Complete two-dimensional, color flow and Doppler transthoracic echocardiogram is performed. 2. Left ventricular chamber dimension is moderately enlarged. 3. Left ventricular systolic function is normal, estimated at 55-60%. 4. The left ventricular diastolic function is abnormal. 5. E/e' 12 is mildly elevated. 6. Atrial fibrillation. 7. Left atrial chamber dimension is moderately enlarged. 8. There is mild aortic valve sclerosis. 9. There is mild to moderate mitral valve regurgitation. 10. There is mild to moderate tricuspid valve regurgitation. 11. Mild pulmonary hypertension, estimated pulmonary arterial systolic pressure is 45 mmHg. 12. There is trivial pericardial effusion. Left Ventricle E/e' 12 is mildly elevated. Atrial fibrillation. Left ventricular chamber dimension is moderately enlarged. Left ventricular systolic function is normal, estimated at 55-60%. The left ventricular diastolic function is abnormal. Right Ventricle Right ventricular systolic function is normal and with normal TAPSE 2.5 cm. Right ventricular chamber dimension is normal. Left Atria Left atrial chamber dimension is moderately enlarged. Right Atria Right atrial chamber dimension is normal. Aortic Valve The aortic valve is probable trileaflet. There is mild aortic valve sclerosis. There is no aortic valve stenosis. There is no aortic valve regurgitation. Pulmonic Valve There is no pulmonic regurgitation. Mitral Valve There is no mitral valve stenosis. There is mild to moderate mitral valve regurgitation. Tricuspid Valve There is mild to moderate tricuspid valve regurgitation. Mild pulmonary hypertension, estimated pulmonary arterial systolic pressure is 45 mmHg. Pericardium/Pleural There is trivial pericardial effusion. Inferior Vena Cava Normal inferior vena cava with >50% collapse upon inspiration consistent with normal right atrial pressure, 5 mmHg. Aorta The aortic root size at the sinus of Valsalva is normal. Left Ventricular Outflow Tract Name Value Normal LVOT 2D LVOT Diameter 2.1 cm LVOT Doppler LVOT Peak Gradient 3 mmHg LVOT Mean Gradient 2 mmHg LVOT VTI 18 cm LVOT VTI/AV VTI Ratio 1.2 LVOT Stroke Volume 63 ml LVOT CO 4.0 l/min LVOT CI 1.8 l/min/m2 Mitral Valve Name Value Normal MV Doppler MV Decel Cooper 686 cm/s2 MV PHT 52 ms MV Area (PHT) 4.2 cm2 4.0-5.0 MV Regurgitation Doppler MR Peak Gradient 80 mmHg MV Diastolic Function MV E Peak Velocity 124 cm/s MV A Peak Velocity 4 cm/s MV E/A 31.4 MV Decel Time 181 ms MV Annular TDI MV E/e' (Septal) 14.6 <=8.0 MV E/e' (Lateral) 11.4 <=8.0 MV E/e' (Average) 13.0 Tricuspid Valve Name Value Normal TV Regurgitation Doppler TR Peak Velocity 316 cm/s TR Peak Gradient 37 mmHg Estimated PAP/RSVP RA Pressure 5 mmHg <=5 PA Systolic Pressure 45 mmHg <36 RV Systolic Pressure 45 mmHg <36 Aortic Valve Name Value Normal AV Doppler AV Peak Velocity 96 cm/s AV Peak Gradient 4 mmHg AV Mean Gradient 2 mmHg AV VTI 16 cm AV Area (Cont Eq VTI) 3.9 cm2 >=3.0 AV Area (Cont Eq Ray) 3.1 cm2 AV Regurgitation 2D LVOT Area 3.4 cm2 Ventricles Name Value Normal LV Dimensions 2D/MM IVS Diastolic Thickness (2D) 1.1 cm 0.6-1.0 LVID Diastole (2D) 5.9 cm 4.2-5.8 LVIW Diastolic Thickness (2D) 1.1 cm 0.6-1.0 LVID Systole (2D) 3.8 cm 2.5-4.0 LVOT Diameter 2.1 cm LV Mass (2D Cubed) 266.04 g 88.00-224.00 LV Mass Index (2D Cubed) 122 g/m2 49-115 Relative Wall Thickness (2D) 0.38 LV Fractional Shortening/Ejection Fraction 2D/MM LV Fractional Shortening (2D) 35 % 25-43 LV EF (2D Teicholz) 64 % 52-72 LV Diastolic Volume (4C MOD) 119 ml LV EF (4C MOD) 51 % LV Diastolic Volume (2C MOD) 126 ml LV EF (2C MOD) 72 % LV Diastolic Volume (BP MOD) 124 ml 62-150 LV Diastolic Volume Index (BP MOD) 57 ml/m2 34-74 LV Systolic Volume (BP MOD) 46 ml 21-61 LV Systolic Volume Index (BP MOD) 21 ml/m2 11-31 LV EF (BP MOD) 63 % 52-72 LV Diastolic Length (4C) 8.3 cm LV Systolic Length (4C) 6.9 cm LV Stroke Volume (4C MOD) 61 ml Atria Name Value Normal LA Dimensions LA Volume (4C A-L) 76 ml LA Volume (BP A-L) 69 ml RA Dimensions RA Area (4C) 15.2 cm2 <=18.0 Report Signatures
[2024-03-10] MEDS: APIXABAN 5 MG TABLET PO ×2 (09:34→20:47)
[2024-03-10] MEDS: METOPROLOL TARTRATE 25 MG TABLET PO ×2 (09:34→12:51)
[2024-03-10] MEDS: amLODIPine BESYLATE 5 MG TABLET PO (09:34)
--- NOTE | 2024-03-10 11:41 | PM.IMPN ---
Progress Note: A&P Assessment and Plan (1) Atrial fibrillation with RVR: Code(s): I48.91 - Unspecified atrial fibrillation Status: Acute (2) Hypertension: Code(s): I10 - Essential (primary) hypertension Status: Acute (3) Obesity (BMI 30.0-34.9): Code(s): E66.811 - Obesity, class 1 Status: Acute Plan This is a 68-year-old male who presented to the ER for abnormal outpatient EKG. He was noted to be in AFib with RVR. No prior history of atrial fibrillation. He has been symptomatic over the past couple of weeks with shortness of breath on exertion. On arrival to the ED his heart rate was in 140s 150s. EKG showed atrial fibrillation with rapid ventricular rate. Received a dose of 10 mg diltiazem and subsequently was started on diltiazem drip. Laboratory workup revealed WBC of 7 hemoglobin 13.2 Chem panel was unremarkable. Troponin serial was negative. TSH normal. CTA chest was done which showed fluid seen anterior to ascending aorta and arch which is most likely pericardial effusion with minimal effusion seen posteriorly to the heart. No PE or any acute cardiopulmonary pathology. Left adrenal adenoma is noted with cholelithiasis. While on diltiazem drip his heart rate lower to 50s and 60s and hence this was discontinued He has been started on metoprolol 25 mg b.i.d.. AFib with RVR still not controlled. Will uptitrated to 50 mg b.i.d.. Echo has been ordered Chads Vasc score 2 and Eliquis has been started. Hypertension on Norvasc was discontinued Obesity Possible sleep apnea. Need outpatient follow-up DVT prophylaxis Eliquis Code status full code Subjective Date/time seen: 03/10/24 11:41 Interval history: Heart rate been bouncing in 1 teens to 130s. Off diltiazem drip. Denies any shortness of breath or chest pain. Shortness of breath with exertion. Review of Systems Review of Systems: All systems reviewed & are unremarkable except as noted in HPI and below Exam Narrative: GENERAL: Well-appearing, In no acute distress, pleasant cooperative HEAD: Normocephalic, atraumatic. EYES: PERRLA and EOMI. ENT: Mucous membranes moist. NECK: Supple. CHEST: Clear to auscultation. No respiratory distress. HEART: tachycardic, irregular rhythm AFib on telemetry ABDOMEN: Soft, nontender, nondistended EXTREMITIES: Normal range of motion. No edema. SKIN: Warm, dry, no rash. NEURO: No focal deficits. Alert and oriented x3. PSYCH: Normal mood and affect. Objective Data Vital Signs Vital Signs: Vital Signs - 24 hr 03/09/24 13:57 03/09/24 14:41 03/09/24 14:42 Temperature 97.8 F 98.1 F Pulse Rate 150 H 144 H 138 H Respiratory Rate 20 17 Blood Pressure 148/101 H 136/93 H Pulse Oximetry 100 96 Oxygen Delivery Room Air 03/09/24 14:59 03/09/24 16:09 03/09/24 16:46 Temperature Pulse Rate 106 H 101 H 141 H Respiratory Rate 18 18 21 H Blood Pressure 110/86 114/87 149/88 H Pulse Oximetry 95 94 97 Oxygen Delivery 03/09/24 17:04 03/09/24 17:28 03/09/24 17:31 Temperature 98.0 F Pulse Rate 129 H 135 H 135 H Respiratory Rate 18 18 Blood Pressure 130/93 H 126/92 H Pulse Oximetry 98 98 Oxygen Delivery 03/09/24 18:00 03/09/24 18:33 03/09/24 18:34 Temperature 97.9 F Pulse Rate 142 H 133 H 134 H Respiratory Rate 15 Blood Pressure 130/73 107/73 107/73 Pulse Oximetry 96 Oxygen Delivery 03/09/24 18:01 03/09/24 19:23 03/09/24 20:47 Temperature Pulse Rate 137 H 101 H 82 Respiratory Rate 21 H 18 18 Blood Pressure 130/73 103/68 110/76 Pulse Oximetry 95 94 96 Oxygen Delivery 03/09/24 21:07 03/09/24 22:16 03/09/24 21:10 Temperature 98.1 F Pulse Rate 116 H 87 116 H Respiratory Rate 20 Blood Pressure 134/90 134/90 Pulse Oximetry 98 Oxygen Delivery 03/09/24 23:15 03/09/24 22:00 03/09/24 21:12 Temperature Pulse Rate 67 105 H Respiratory Rate Blood Pressure Pulse Oximetry Oxygen Delivery Room Air 03/09/24 22:00 03/10/24 00:47 03/10/24 00:00 Temperature 98.2 F Pulse Rate 92 86 Respiratory Rate 20 Blood Pressure 118/85 Pulse Oximetry 97 Oxygen Delivery Room Air 03/10/24 00:00 03/10/24 02:00 03/10/24 03:53 Temperature 97.7 F Pulse Rate 57 L 84 80 Respiratory Rate 20 Blood Pressure 133/93 H Pulse Oximetry 95 Oxygen Delivery 03/10/24 04:00 03/10/24 04:00 03/10/24 06:00 Temperature Pulse Rate 84 83 Respiratory Rate Blood Pressure Pulse Oximetry Oxygen Delivery Room Air 03/10/24 06:44 03/10/24 08:27 03/10/24 09:34 Temperature 98.0 F Pulse Rate 145 H 106 H 110 H Respiratory Rate 20 Blood Pressure 119/88 Pulse Oximetry 96 Oxygen Delivery Intake/Output Intake/Output: Intake & Output 03/07/24 03/08/24 03/09/24 03/10/24 23:59 23:59 23:59 23:59 Intake Total 64.6 790 Output Total 650 Balance 64.6 140 Meds/Results Medications: Active Medications Generic Name Dose Route Start Last Admin Trade Name Freq PRN Reason Stop Dose Admin Amlodipine Besylate 5 mg 03/10/24 09:00 03/10/24 09:34 Amlodipine Besylate 5 Mg Tablet PO 5 mg DAILY DERRICK Administration Apixaban 5 mg 03/09/24 22:10 03/10/24 09:34 Apixaban 5 Mg Tablet PO 5 mg Q12HR DERRICK Administration Metoprolol Tartrate 25 mg 03/10/24 11:40 Metoprolol Tartrate 25 Mg Tablet PO 03/10/24 11:41 ONCE ONE Perflutren Lipid Microsphere 0 ml 03/09/24 21:30 Perflutren Lipid Microspheres 1.5 Ml Vial Diluted To 10 Ml Total Volume IV PUSH 03/12/24 21:30 ONCE PRN adequate visualization Protocol Radiology Results: ITS Impressions Chest CTA 03/09/24 17:30 IMPRESSION: 1. Fluid seen anterior to the ascending aorta and arch which is most likely pericardial effusion with minimal effusion seen posteriorly to the heart. Echocardiography for further evaluation advised. 2. No pulmonary embolism. 3. No acute cardiopulmonary pathology. 4. Cardiomegaly 5. Cholelithiasis. 6. Left adrenal adenoma. Labs Labs: Laboratory Results - last 24 hr 03/09/24 03/09/24 03/09/24 14:16 17:02 21:24 WBC 7.0 RBC 4.05 L Hgb 13.2 L Hct 39.3 L MCV 97.0 MCH 32.6 MCHC 33.6 RDW 13.5 Plt Count 182 MPV 10.7 H Immature Gran % (Auto) 0.3 Neut % (Auto) 70.9 Lymph % (Auto) 21.0 [place] % (Auto) 6.7 Eos % (Auto) 0.7 Baso % (Auto) 0.4 Lymph # (Auto) 1.47 [place] # (Auto) 0.5 Eos # (Auto) 0.1 Baso # (Auto) 0.0 Abs Immat Gran (auto) 0.02 Absolute Neuts (auto) 5.0 Absolute Nucleated RBC 0.000 Nucleated RBC % 0.0 PT 13.5 INR 1.0 APTT 27.6 D-Dimer 1.22 H Sodium 141 Potassium 4.1 Chloride 107 Carbon Dioxide 23 Anion Gap 11 BUN 26 H Creatinine 0.90 Estim Creat Clear Calc 80 Estimated GFR > 60 Glucose 100 Calcium 9.0 Total Bilirubin 1.1 AST 29 ALT 30 Alkaline Phosphatase 53 Troponin I < 0.012 < 0.012 < 0.012 Total Protein 8.0 Albumin 4.5 Lipase 64 TSH (Reflex) 2.060
--- NOTE | 2024-03-10 12:58 | P.CONCA_ITS ---
Assessment and Plan Assessment and plan (1) Atrial fibrillation with RVR: Code(s): I48.91 - Unspecified atrial fibrillation Status: Acute Assessment and Plan: Could be related to undiagnosed HOLLAND. [id number] 2. Start Eliquis 5 mg BID. Rate control with Metoprolol. Add Diltiazem 60 mg PO every 6 hours. Check echo. (2) Obesity (BMI 30.0-34.9): Code(s): E66.811 - Obesity, class 1 Status: Acute (3) Hypertension: Code(s): I10 - Essential (primary) hypertension Status: Acute Assessment and Plan: Stable. History of Present Illness History of Present Illness Consult date/time: 03/10/24 12:58 Reason For Visit: New onset abit w/RVR Narrative: 68 yr old man admitted for rapid atrial fibrillation. He has a history of hype rtension, a gibson. PCP ordered EKG that showed atrial fib and sent to ER. Reports he has VEGA walki ng 1/2 block. He thinks he walked better a year ago at about a block. Denies chest pain, sob, orthopnea, PND, edema, dizziness, palpitations. Review of Systems Review of Systems: All systems reviewed & are unremarkable except as noted in HPI and below Constitutional: Constitutional: Reports as per HPI, Denies chills, Reports fatigue and Denies fever(s) Cardiovascular: Cardiovascular: Reports as per HPI and Denies chest pain Respiratory: Respiratory: Reports as per HPI, Denies dyspnea and Reports dyspnea on exertion Gastrointestinal: Gastrointestinal: Reports as per HPI and Denies abdominal pain Genitourinary: Genitourinary: Reports as per HPI and Denies dysuria Musculoskeletal: Musculoskeletal: Reports as per HPI Neurologic: Reports as per HPI, Denies dizziness and Denies syncope [facility] Past Medical History Medical History (Updated 03/10/24 @ 11:45 by Rose Schaffer PA-C) Fracture of left distal radius September 2020 Obesity (BMI 30.0-34.9) Skin neoplasm Surgical History Surgical History History of spinal fusion Family History Family History Mother Aneurysm Breast cancer Father , At age 85 Colon cancer Social History Social History (Updated 03/10/24 @ 04:26 by Abigail Saravia DO) 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 He is single and has never been . He does not have children. He and his brother live in the same farm house that they were raised in. He has a medium-sized dog at home. Code status: Full code (he would not want to be on long-term ventilator support) Surrogate decision maker: Josh Morales (brother) Smoking status: Never smoker Alcohol intake: current Drinks per week: 5 Substance use: never Substance use type: does not use Do You Feel Safe in your Home?: Yes Lack of Transportation: No Lack of Food: Never True Current Housing: I Have Housing Concerned About Future Housing: No Difficulty Paying Gas/Electric Bills: No Difficulty Paying for Meds: No Currently Unemployed: No Education: Decline to Answer Difficulty w/ Childcare or Family Care: No Living arrangements: alone Occupation/Education: occupation 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 Gender identity (if verbalized by the patient): Male Sexual Orientation (if Verbalized by the Patient): Straight or Heterosexual Spiritual care concerns: No Agree to blood products: Yes Meds Home Medications and Allergies Home Medications Medication Instructions Recorded Confirmed Type amlodipine 5 mg tablet 5 mg PO DAILY #90 tabs 11/19/23 03/09/24 Rx Allergies Allergy/AdvReac Type Severity Reaction Status Date / Time No Known Allergies Allergy Mild Verified 03/09/24 21:31 Vital Signs Vital Signs - 24 hr 03/09/24 13:57 03/09/24 14:41 03/09/24 14:42 Temperature 97.8 F 98.1 F Pulse Rate 150 H 144 H 138 H Respiratory Rate 20 17 Blood Pressure 148/101 H 136/93 H Pulse Oximetry 100 96 Oxygen Delivery Room Air 03/09/24 14:59 03/09/24 16:09 03/09/24 16:46 Temperature Pulse Rate 106 H 101 H 141 H Respiratory Rate 18 18 21 H Blood Pressure 110/86 114/87 149/88 H Pulse Oximetry 95 94 97 Oxygen Delivery 03/09/24 17:04 03/09/24 17:28 03/09/24 17:31 Temperature 98.0 F Pulse Rate 129 H 135 H 135 H Respiratory Rate 18 18 Blood Pressure 130/93 H 126/92 H Pulse Oximetry 98 98 Oxygen Delivery 03/09/24 18:00 03/09/24 18:33 03/09/24 18:34 Temperature 97.9 F Pulse Rate 142 H 133 H 134 H Respiratory Rate 15 Blood Pressure 130/73 107/73 107/73 Pulse Oximetry 96 Oxygen Delivery 03/09/24 18:01 03/09/24 19:23 03/09/24 20:47 Temperature Pulse Rate 137 H 101 H 82 Respiratory Rate 21 H 18 18 Blood Pressure 130/73 103/68 110/76 Pulse Oximetry 95 94 96 Oxygen Delivery 03/09/24 21:07 03/09/24 22:16 03/09/24 21:10 Temperature 98.1 F Pulse Rate 116 H 87 116 H Respiratory Rate 20 Blood Pressure 134/90 134/90 Pulse Oximetry 98 Oxygen Delivery 03/09/24 23:15 03/09/24 22:00 03/09/24 21:12 Temperature Pulse Rate 67 105 H Respiratory Rate Blood Pressure Pulse Oximetry Oxygen Delivery Room Air 03/09/24 22:00 03/10/24 00:47 03/10/24 00:00 Temperature 98.2 F Pulse Rate 92 86 Respiratory Rate 20 Blood Pressure 118/85 Pulse Oximetry 97 Oxygen Delivery Room Air 03/10/24 00:00 03/10/24 02:00 03/10/24 03:53 Temperature 97.7 F Pulse Rate 57 L 84 80 Respiratory Rate 20 Blood Pressure 133/93 H Pulse Oximetry 95 Oxygen Delivery 03/10/24 04:00 03/10/24 04:00 03/10/24 06:00 Temperature Pulse Rate 84 83 Respiratory Rate Blood Pressure Pulse Oximetry Oxygen Delivery Room Air 03/10/24 06:44 03/10/24 08:27 03/10/24 09:34 Temperature 98.0 F Pulse Rate 145 H 106 H 110 H Respiratory Rate 20 Blood Pressure 119/88 Pulse Oximetry 96 Oxygen Delivery 03/10/24 11:43 03/10/24 08:00 03/10/24 08:00 Temperature 98.3 F Pulse Rate 139 H 124 H Respiratory Rate 20 Blood Pressure 145/92 H Pulse Oximetry 94 Oxygen Delivery Room Air 03/10/24 12:51 Temperature Pulse Rate 133 H Respiratory Rate Blood Pressure Pulse Oximetry Oxygen Delivery Exam Const: General: cooperative, healthy appearing and comfortable Resp: Auscultation: clear to auscultation bilaterally, no crackles, no rales, no rhonchi and no wheezes Cardio: Rate: tachycardic Rhythm: abnormal rhythm Heart sounds: no murmurs Peripheral pulses: dorsalis pedis present GI: GI Palp: No abdominal tenderness and Yes Soft to palpation Neuro: General: oriented to person, oriented to place and oriented to time Extrem: Right lower extremity: no edema Left lower extremity: no edema Results Labs and Meds 03/09/24 14:16 03/09/24 14:16 Lab results: Cardiac Enzymes 03/09/24 03/09/24 03/09/24 Range/Units 14:16 17:02 21:24 AST 29 (17-59) U/L Troponin I < 0.012 < 0.012 < 0.012 (0.000-0.034) ng/mL Coagulation 03/09/24 Range/Units 14:16 PT 13.5 (11.1-14.7) Seconds APTT 27.6 (22.3-36.8) Seconds CBC 03/09/24 Range/Units 14:16 WBC 7.0 (4.5-10.0) K/mm3 RBC 4.05 L (4.6-6.20) M/mm3 Hgb 13.2 L (14.0-18.0) g/dL Hct 39.3 L (42.0-52.0) % Plt Count 182 (150-375) k/mm3 Lymph # (Auto) 1.47 (0.9-3.2) K/mm3 [place] # (Auto) 0.5 (0.1-0.6) K/mm3 Eos # (Auto) 0.1 (0-0.3) K/mm3 Baso # (Auto) 0.0 (0.0-0.1) K/mm3 Comprehensive Metabolic Panel 03/09/24 Range/Units 14:16 Sodium 141 (137-145) mmol/L Potassium 4.1 (3.4-5.0) mmol/L Chloride 107 (98-107) mmol/L Carbon Dioxide 23 (22-30) mmol/L BUN 26 H (9-20) mg/dL Creatinine 0.90 (0.7-1.3) mg/dL Glucose 100 (65-110) mg/dL Calcium 9.0 (8.4-10.2) mg/dL AST 29 (17-59) U/L ALT 30 (6-50) U/L Alkaline Phosphatase 53 (38-126) U/L Total Protein 8.0 (6.3-8.2) g/dL Albumin 4.5 (3.5-5.1) g/dL Intake and Output 03/09/24 03/10/24 03/10/24 23:59 07:59 15:59 Intake Total 64.6 550 480 Output Total 650 Balance 64.6 -100 480 Intake: IV 64.6 dilTIAZem 100 MG/100 ML 100 mg 64.6 In 100 ml @ 0 MG/HR IV CONT . Q0M STA Rx#:[id number] Oral 550 480 Output: Urine 650 Patient Weight 03/10/24 23:59 Weight 100.6 kg
[2024-03-10] MEDS: dilTIAZem HCL 60 MG TABLET PO ×2 (18:11→23:08)
[2024-03-10] MEDS: METOPROLOL TARTRATE 50 MG TAB PO (20:47)
[2024-03-11] VITALS (21 sets, daily range): BP systolic 111–127; BP diastolic 72–96; PULSE 62–134; RESP 16–20; TEMP 36.6–37.1; O2SAT 94–98
[2024-03-11 04:57] LABS: Basophils Percent Auto 0.4 % (0.2-1.2); Eosinophils Absolute Auto 0.3 K/mm3 (0-0.3); Eosinophils Percent Auto 4.6 % (0-4.4); Hematocrit 36.4 % (42.0-52.0); Immature Granulocyte Absolute 0.01 K/mm3 (0.00-0.031); Immature Granulocyte Percent A 0.2 % (0-0.5); Lymphocytes Absolute Auto 2.18 K/mm3 (0.9-3.2); Lymphocytes Percent Auto 40.1 % (18.3-44.2); Mean Corpuscular Hemoglobin 32.5 pg (26-34); Mean Corpuscular Volume 98.6 fl (80-100); Mean Platelet Volume 10.8 fl (7.4-10.4); Monocytes Absolute Auto 0.5 K/mm3 (0.1-0.6); Monocytes Percent Auto 8.8 % (2.6-8.5); Neutrophils Absolute Auto 2.5 K/mm3 (1.3-6.7); Neutrophils Percent Auto 45.9 % (45.5-73.1); Platelet Count Result 153 k/mm3 (150-375); Red Blood Count 3.69 M/mm3 (4.6-6.20); Red Cell Distribution Width 13.2 % (11.5-14.5); White Blood Count 5.4 K/mm3 (4.5-10.0)
[2024-03-11 05:17] LABS: Alanine Aminotransferase 22 U/L (6-50); Albumin Level 3.5 g/dL (3.5-5.1); Alkaline Phosphatase 44 U/L (38-126); Anion Gap 5 mmol/L (4-12); Aspartate Amino Transferase 20 U/L (17-59); Bilirubin,Total 1.2 mg/dL (0.2-1.3); Blood Urea Nitrogen 18 mg/dL (9-20); Calcium 8.6 mg/dL (8.4-10.2); Carbon Dioxide 27 mmol/L (22-30); Chloride 105 mmol/L (98-107); Estimated CRCL calculation 72 ml/min; Estimated Glomerular Filt Rate > 60; Glucose 86 mg/dL (65-110); Magnesium 2.1 mg/dL (1.6-2.3); Potassium 4.2 mmol/L (3.4-5.0); Sodium 137 mmol/L (137-145)
[2024-03-11] MEDS: APIXABAN 5 MG TABLET PO ×2 (09:04→22:03)
[2024-03-11] MEDS: METOPROLOL TARTRATE 50 MG TAB PO ×2 (09:04→22:03)
--- NOTE | 2024-03-11 09:20 | PM.PNCARD ---
Progress Note: A&P Assessment and Plan (1) Atrial fibrillation with RVR: Code(s): I48.91 - Unspecified atrial fibrillation Status: Acute Assessment and Plan: Could be related to undiagnosed HOLLAND. [id number] 2. On Eliquis 5 mg BID. Rate control with Metoprolol Tartate 50 mg every 12 hours and Diltiazem 30 mg PO every 12 hours. 03/10/24 Echo with EF 55-60%, diastolic dysfunction (E/e' 12), mod LAE, RVSP 45 mmHg. If HR is OK today with medication, then may d/c home from cardiology standpoint and f/u with me within a week. Needs outpatient sleep study. (2) Obesity (BMI 30.0-34.9): Code(s): E66.811 - Obesity, class 1 Status: Acute (3) Hypertension: Code(s): I10 - Essential (primary) hypertension Status: Acute Assessment and Plan: Stable. (4) Sinus pause: Code(s): I45.5 - Other specified heart block Status: Acute Assessment and Plan: Long pauses during sleep up to 8 seconds at 2:34 am on 03/11/24. Due to HOLLAND. No need for pacemaker as it is not happening while awake. Subjective Date/time seen: 03/11/24 09:20 Interval history: Denies chest pain or sob. Exam Const: General: cooperative, healthy appearing and comfortable Orientation/consciousness: oriented to person, oriented to place and oriented to time Resp: Auscultation: clear to auscultation bilaterally, no crackles, no rales, no rhonchi and no wheezes Cardio: Rate: tachycardic Rhythm: abnormal rhythm Heart sounds: no murmurs Peripheral pulses: dorsalis pedis present Neuro: General: oriented to person, oriented to place and oriented to time Extrem: Right lower extremity: no edema Left lower extremity: no edema Objective Data Vital Signs Vital Signs: Vital Signs - 24 hr 03/10/24 09:34 03/10/24 11:43 03/10/24 12:51 Temperature 98.3 F Pulse Rate 110 H 139 H 133 H Respiratory Rate 20 Blood Pressure 145/92 H Pulse Oximetry 94 Oxygen Delivery Fraction of Inspired Oxygen 03/10/24 12:00 03/10/24 15:53 03/10/24 10:00 Temperature 98.1 F Pulse Rate 98 115 H Respiratory Rate 20 Blood Pressure 124/97 H Pulse Oximetry 98 Oxygen Delivery Room Air Fraction of Inspired Oxygen 03/10/24 12:00 03/10/24 14:00 03/10/24 16:00 Temperature Pulse Rate 133 H 107 H 114 H Respiratory Rate Blood Pressure Pulse Oximetry Oxygen Delivery Fraction of Inspired Oxygen 03/10/24 16:00 03/10/24 18:00 03/10/24 19:57 Temperature 98.1 F Pulse Rate 111 H 113 H Respiratory Rate 20 Blood Pressure 116/75 Pulse Oximetry 97 Oxygen Delivery Room Air Fraction of Inspired Oxygen 03/10/24 20:47 03/10/24 20:00 03/10/24 20:00 Temperature Pulse Rate 107 H 101 H Respiratory Rate Blood Pressure Pulse Oximetry Oxygen Delivery Room Air Fraction of Inspired Oxygen 03/10/24 22:00 03/10/24 23:02 03/11/24 00:00 Temperature 98.1 F Pulse Rate 107 H 79 Respiratory Rate 20 Blood Pressure 116/80 Pulse Oximetry 96 Oxygen Delivery Room Air Fraction of Inspired Oxygen 03/11/24 00:00 03/11/24 02:00 03/11/24 03:58 Temperature 98.7 F Pulse Rate 62 84 71 Respiratory Rate 20 Blood Pressure 119/96 H Pulse Oximetry 94 Oxygen Delivery Fraction of Inspired Oxygen 03/11/24 04:00 03/11/24 04:00 03/11/24 06:00 Temperature Pulse Rate 73 73 Respiratory Rate Blood Pressure Pulse Oximetry Oxygen Delivery Room Air Fraction of Inspired Oxygen 03/11/24 07:54 03/11/24 09:04 03/11/24 09:06 Temperature 97.8 F Pulse Rate 99 116 H Respiratory Rate 16 Blood Pressure 125/72 Pulse Oximetry 98 98 Oxygen Delivery Room Air Fraction of Inspired Oxygen 21 03/11/24 08:00 Temperature Pulse Rate 115 H Respiratory Rate 16 Blood Pressure Pulse Oximetry 98 Oxygen Delivery Room Air Fraction of Inspired Oxygen 21 Intake/Output Intake/Output: Intake & Output 03/08/24 03/09/24 03/10/24 03/11/24 23:59 23:59 23:59 23:59 Intake Total 64.6 1670 2261 Output Total 650 0 Balance 64.6 1020 2261 Meds/Results Medications: Active Medications Generic Name Dose Route Start Last Admin Trade Name Freq PRN Reason Stop Dose Admin Apixaban 5 mg 03/09/24 22:10 03/11/24 09:04 Apixaban 5 Mg Tablet PO 5 mg Q12HR [facility] Administration Diltiazem HCl 30 mg 03/11/24 09:00 Diltiazem Hcl 60 Mg Tablet PO Q12HR [facility] Metoprolol Tartrate 50 mg 03/10/24 21:00 03/11/24 09:04 Metoprolol Tartrate 50 Mg Tab PO 50 mg Q12HR DERRICK Administration Perflutren Lipid Microsphere 0 ml 03/09/24 21:30 Perflutren Lipid Microspheres 1.5 Ml Vial Diluted To 10 Ml Total Volume IV PUSH 03/12/24 21:30 ONCE PRN adequate visualization Protocol Radiology Results: ITS Impressions Chest CTA 03/09/24 17:30 IMPRESSION: 1. Fluid seen anterior to the ascending aorta and arch which is most likely pericardial effusion with minimal effusion seen posteriorly to the heart. Echocardiography for further evaluation advised. 2. No pulmonary embolism. 3. No acute cardiopulmonary pathology. 4. Cardiomegaly 5. Cholelithiasis. 6. Left adrenal adenoma. Labs Labs: Laboratory Results - last 24 hr 03/11/24 04:15 WBC 5.4 RBC 3.69 L Hgb 12.0 L Hct 36.4 L MCV 98.6 MCH 32.5 MCHC 33.0 RDW 13.2 Plt Count 153 MPV 10.8 H Immature Gran % (Auto) 0.2 Neut % (Auto) 45.9 Lymph % (Auto) 40.1 [place] % (Auto) 8.8 H Eos % (Auto) 4.6 H Baso % (Auto) 0.4 Lymph # (Auto) 2.18 [place] # (Auto) 0.5 Eos # (Auto) 0.3 Baso # (Auto) 0.0 Abs Immat Gran (auto) 0.01 Absolute Neuts (auto) 2.5 Absolute Nucleated RBC 0.000 Nucleated RBC % 0.0 Sodium 137 Potassium 4.2 Chloride 105 Carbon Dioxide 27 Anion Gap 5 BUN 18 Creatinine 1.00 Estim Creat Clear Calc 72 Estimated GFR > 60 Glucose 86 Calcium 8.6 Magnesium 2.1 Total Bilirubin 1.2 AST 20 ALT 22 Alkaline Phosphatase 44 Total Protein 6.0 L Albumin 3.5
--- NOTE | 2024-03-11 13:34 | P.PNIM_ITS ---
Progress Note: A&P Assessment and Plan (1) Atrial fibrillation with RVR: Code(s): I48.91 - Unspecified atrial fibrillation Status: Acute (2) Hypertension: Code(s): I10 - Essential (primary) hypertension Status: Acute (3) Obesity (BMI 30.0-34.9): Code(s): E66.811 - Obesity, class 1 Status: Acute Plan This is a 68-year-old male who presented to the ER for abnormal outpatient EKG. He was noted to be in AFib with RVR. No prior history of atrial fibrillation. He has been symptomatic over the past couple of weeks with shortness of breath on exertion. On arrival to the ED his heart rate was in 140s 150s. EKG showed atrial fibrillation with rapid ventricular rate. Received a dose of 10 mg diltiazem and subsequently was started on diltiazem drip. Laboratory workup revealed WBC of 7 hemoglobin 13.2 Chem panel was unremarkable. Troponin serial was negative. TSH normal. CTA chest was done which showed fluid seen anterior to ascending aorta and arch which is most likely pericardial effusion with minimal effusion seen posteriorly to the heart. No PE or any acute cardiopulmonary pathology. Left adrenal adenoma is noted with cholelithiasis. While on diltiazem drip his heart rate lower to 50s and 60s and hence this was discontinued He has been started on metoprolol 25 mg b.i.d.. AFib with RVR still not controlled. Will uptitrated to 50 mg b.i.d.. Echo with EF 55-60% [id number] MR [id number] TR mild pulmonary hypertension diastolic dysfunction. Chads Vasc score 2 and Eliquis has been started. Cardiology consulted. Added on diltiazem. Hypertension on Norvasc was discontinued Obesity Possible sleep apnea. Need outpatient follow-up . Pauses during sleep up to stage 2nd no need for pacemaker. Will check ApneaLink study for sleep apnea DVT prophylaxis Eliquis Code status full code Subjective Date/time seen: 03/11/24 13:34 Interval history: overnight event noted with Transient pause and bradycardia. Currently AFib with RVR Review of Systems Review of Systems: All systems reviewed & are unremarkable except as noted in HPI and below Exam Narrative: GENERAL: Well-appearing, In no acute distress, pleasant cooperative HEAD: Normocephalic, atraumatic. EYES: PERRLA and EOMI. ENT: Mucous membranes moist. NECK: Supple. CHEST: Clear to auscultation. No respiratory distress. HEART: tachycardic, irregular rhythm AFib on telemetry ABDOMEN: Soft, nontender, nondistended EXTREMITIES: Normal range of motion. No edema. SKIN: Warm, dry, no rash. NEURO: No focal deficits. Alert and oriented x3. PSYCH: Normal mood and affect. Objective Data Vital Signs Vital Signs: Vital Signs - 24 hr 03/10/24 15:53 03/10/24 14:00 03/10/24 16:00 Temperature 98.1 F Pulse Rate 98 107 H 114 H Respiratory Rate 20 Blood Pressure 124/97 H Pulse Oximetry 98 Oxygen Delivery Fraction of Inspired Oxygen 03/10/24 16:00 03/10/24 18:00 03/10/24 19:57 Temperature 98.1 F Pulse Rate 111 H 113 H Respiratory Rate 20 Blood Pressure 116/75 Pulse Oximetry 97 Oxygen Delivery Room Air Fraction of Inspired Oxygen 03/10/24 20:47 03/10/24 20:00 03/10/24 20:00 Temperature Pulse Rate 107 H 101 H Respiratory Rate Blood Pressure Pulse Oximetry Oxygen Delivery Room Air Fraction of Inspired Oxygen 03/10/24 22:00 03/10/24 23:02 03/11/24 00:00 Temperature 98.1 F Pulse Rate 107 H 79 Respiratory Rate 20 Blood Pressure 116/80 Pulse Oximetry 96 Oxygen Delivery Room Air Fraction of Inspired Oxygen 03/11/24 00:00 03/11/24 02:00 03/11/24 03:58 Temperature 98.7 F Pulse Rate 62 84 71 Respiratory Rate 20 Blood Pressure 119/96 H Pulse Oximetry 94 Oxygen Delivery Fraction of Inspired Oxygen 03/11/24 04:00 03/11/24 04:00 03/11/24 06:00 Temperature Pulse Rate 73 73 Respiratory Rate Blood Pressure Pulse Oximetry Oxygen Delivery Room Air Fraction of Inspired Oxygen 03/11/24 07:54 03/11/24 09:04 03/11/24 09:06 Temperature 97.8 F Pulse Rate 99 116 H Respiratory Rate 16 Blood Pressure 125/72 Pulse Oximetry 98 98 Oxygen Delivery Room Air Fraction of Inspired Oxygen 21 03/11/24 08:00 03/11/24 08:00 03/11/24 10:00 Temperature Pulse Rate 115 H 118 H 87 Respiratory Rate 16 Blood Pressure Pulse Oximetry 98 Oxygen Delivery Room Air Fraction of Inspired Oxygen 03/11/24 11:27 Temperature 98.1 F Pulse Rate 102 H Respiratory Rate 16 Blood Pressure 111/81 Pulse Oximetry 98 Oxygen Delivery Fraction of Inspired Oxygen Intake/Output Intake/Output: Intake & Output 03/08/24 03/09/24 03/10/24 03/11/24 23:59 23:59 23:59 23:59 Intake Total 64.6 1670 2741 Output Total 650 0 Balance 64.6 1020 2741 Meds/Results Medications: Active Medications Generic Name Dose Route Start Last Admin Trade Name Freq PRN Reason Stop Dose Admin Apixaban 5 mg 03/09/24 22:10 03/11/24 09:04 Apixaban 5 Mg Tablet PO 5 mg Q12HR DERRICK Administration Diltiazem HCl 30 mg 03/11/24 09:00 Diltiazem Hcl 60 Mg Tablet PO Q12HR DERRICK Metoprolol Tartrate 50 mg 03/10/24 21:00 03/11/24 09:04 Metoprolol Tartrate 50 Mg Tab PO 50 mg Q12HR DERRICK Administration Perflutren Lipid Microsphere 0 ml 03/09/24 21:30 Perflutren Lipid Microspheres 1.5 Ml Vial Diluted To 10 Ml Total Volume IV PUSH 03/12/24 21:30 ONCE PRN adequate visualization Protocol Radiology Results: ITS Impressions Chest CTA 03/09/24 17:30 IMPRESSION: 1. Fluid seen anterior to the ascending aorta and arch which is most likely pericardial effusion with minimal effusion seen posteriorly to the heart. Echocardiography for further evaluation advised. 2. No pulmonary embolism. 3. No acute cardiopulmonary pathology. 4. Cardiomegaly 5. Cholelithiasis. 6. Left adrenal adenoma. Labs Labs: Laboratory Results - last 24 hr 03/11/24 04:15 WBC 5.4 RBC 3.69 L Hgb 12.0 L Hct 36.4 L MCV 98.6 MCH 32.5 MCHC 33.0 RDW 13.2 Plt Count 153 MPV 10.8 H Immature Gran % (Auto) 0.2 Neut % (Auto) 45.9 Lymph % (Auto) 40.1 [place] % (Auto) 8.8 H Eos % (Auto) 4.6 H Baso % (Auto) 0.4 Lymph # (Auto) 2.18 [place] # (Auto) 0.5 Eos # (Auto) 0.3 Baso # (Auto) 0.0 Abs Immat Gran (auto) 0.01 Absolute Neuts (auto) 2.5 Absolute Nucleated RBC 0.000 Nucleated RBC % 0.0 Sodium 137 Potassium 4.2 Chloride 105 Carbon Dioxide 27 Anion Gap 5 BUN 18 Creatinine 1.00 Estim Creat Clear Calc 72 Estimated GFR > 60 Glucose 86 Calcium 8.6 Magnesium 2.1 Total Bilirubin 1.2 AST 20 ALT 22 Alkaline Phosphatase 44 Total Protein 6.0 L Albumin 3.5
--- NOTE | 2024-03-11 22:56 | PCRCNOTE ---
Patient placed on Apnea Link study at 10:30pm, patient is on room air. stating 97%
[2024-03-12] VITALS (16 sets, daily range): BP systolic 105–135; BP diastolic 69–115; PULSE 69–147; RESP 18–20; TEMP 36.6–37.2; O2SAT 96–100
--- NOTE | 2024-03-12 01:04 | PC.NURSE ---
Daylight Savings Time For Daylight Savings Time Ending in the Fall - Clocks are moved back. For Daylight Savings Time Beginning in the Spring - Clocks are moved ahead. For [facility], the time of change occurs at 0200 hrs. Time is taken from the in room dining server. This entry on the patient's chart recognizes the change in time reflected during documentation. Example: 2 entries for vital signs may be charted for 0200 hrs.
[2024-03-12 05:02] LABS: Basophils Percent Auto 0.5 % (0.2-1.2); Eosinophils Absolute Auto 0.3 K/mm3 (0-0.3); Eosinophils Percent Auto 4.8 % (0-4.4); Hematocrit 39.5 % (42.0-52.0); Immature Granulocyte Absolute 0.01 K/mm3 (0.00-0.031); Immature Granulocyte Percent A 0.2 % (0-0.5); Lymphocytes Absolute Auto 2.47 K/mm3 (0.9-3.2); Lymphocytes Percent Auto 41.1 % (18.3-44.2); Mean Corpuscular HGB Conc 32.9 g/dl (32-36); Mean Corpuscular Hemoglobin 32.3 pg (26-34); Mean Corpuscular Volume 98.3 fl (80-100); Mean Platelet Volume 10.4 fl (7.4-10.4); Monocytes Absolute Auto 0.5 K/mm3 (0.1-0.6); Monocytes Percent Auto 8.5 % (2.6-8.5); Neutrophils Absolute Auto 2.7 K/mm3 (1.3-6.7); Neutrophils Percent Auto 44.9 % (45.5-73.1); Platelet Count Result 165 k/mm3 (150-375); Red Blood Count 4.02 M/mm3 (4.6-6.20); Red Cell Distribution Width 13.2 % (11.5-14.5)
[2024-03-12 05:20] LABS: Alanine Aminotransferase 21 U/L (6-50); Albumin Level 3.6 g/dL (3.5-5.1); Alkaline Phosphatase 42 U/L (38-126); Anion Gap 7 mmol/L (4-12); Aspartate Amino Transferase 19 U/L (17-59); Bilirubin,Total 0.8 mg/dL (0.2-1.3); Blood Urea Nitrogen 18 mg/dL (9-20); Calcium 8.8 mg/dL (8.4-10.2); Carbon Dioxide 27 mmol/L (22-30); Chloride 106 mmol/L (98-107); Estimated CRCL calculation 72 ml/min; Estimated Glomerular Filt Rate > 60; Glucose 87 mg/dL (65-110); Magnesium 2.1 mg/dL (1.6-2.3); Potassium 4.3 mmol/L (3.4-5.0); Sodium 140 mmol/L (137-145)
--- NOTE | 2024-03-12 07:22 | P.PNCA_ITS ---
Progress Note: A&P Assessment and Plan (1) Atrial fibrillation with RVR: Code(s): I48.91 - Unspecified atrial fibrillation Status: Acute Assessment and Plan: Could be related to undiagnosed HOLLAND. [id number] 2. On Eliquis 5 mg BID. Rate control with Metoprolol Tartate 50 mg every 12 hours. 03/10/24 Echo with EF 55-60%, diastolic dysfunction (E/e' 12), mod LAE, RVSP 45 mmHg. To improve HR control, start Digoxin 125 mcg daily. If HR is OK today with medication, then may d/c home from cardiology standpoint and f/u with me within a week. Needs outpatient sleep study. (2) Obesity (BMI 30.0-34.9): Code(s): E66.811 - Obesity, class 1 Status: Acute (3) Hypertension: Code(s): I10 - Essential (primary) hypertension Status: Acute Assessment and Plan: Stable. (4) Sinus pause: Code(s): I45.5 - Other specified heart block Status: Acute Assessment and Plan: Long pauses during sleep up to 8 seconds at 2:34 am on 03/11/24. Due to HOLLAND. No need for pacemaker as it is not happening while awake. Subjective Date/time seen: 03/12/24 07:22 Interval history: Denies chest pain or sob. Exam Const: General: cooperative, healthy appearing and comfortable Orientation/consciousness: oriented to person, oriented to place and oriented to time Resp: Auscultation: clear to auscultation bilaterally, no crackles, no rales, no rhonchi and no wheezes Cardio: Rate: tachycardic Rhythm: abnormal rhythm Heart sounds: no murmurs Peripheral pulses: dorsalis pedis present Neuro: General: oriented to person, oriented to place and oriented to time Extrem: Right lower extremity: no edema Left lower extremity: no edema Objective Data Vital Signs Vital Signs: Vital Signs - 24 hr 03/11/24 09:04 03/11/24 09:06 03/11/24 10:00 Temperature Pulse Rate 116 H 87 Respiratory Rate Blood Pressure Pulse Oximetry 98 Oxygen Delivery Room Air Fraction of Inspired Oxygen 21 03/11/24 11:27 03/11/24 15:57 03/11/24 12:00 Temperature 98.1 F 97.8 F Pulse Rate 102 H 88 134 H Respiratory Rate 16 16 Blood Pressure 111/81 122/77 Pulse Oximetry 98 97 Oxygen Delivery Fraction of Inspired Oxygen 03/11/24 14:00 03/11/24 16:00 03/11/24 12:00 Temperature Pulse Rate 92 92 92 Respiratory Rate 16 Blood Pressure Pulse Oximetry 98 Oxygen Delivery Room Air Fraction of Inspired Oxygen 21 03/11/24 16:00 03/11/24 18:00 03/11/24 20:00 Temperature 98.0 F Pulse Rate 95 99 113 H Respiratory Rate 16 18 Blood Pressure 127/80 Pulse Oximetry 98 97 Oxygen Delivery Room Air Fraction of Inspired Oxygen 21 03/11/24 22:03 03/11/24 20:00 03/11/24 22:56 Temperature Pulse Rate 119 H Respiratory Rate Blood Pressure Pulse Oximetry 97 Oxygen Delivery Room Air Room Air Fraction of Inspired Oxygen 03/11/24 23:12 03/11/24 20:00 03/11/24 22:00 Temperature 98.1 F Pulse Rate 121 H 115 H 109 H Respiratory Rate 18 Blood Pressure 119/86 Pulse Oximetry 96 Oxygen Delivery Fraction of Inspired Oxygen 03/12/24 00:00 03/12/24 01:06 [employer]PUT[employer] 03/12/24 04:00 Temperature Pulse Rate 85 85 Respiratory Rate Blood Pressure Pulse Oximetry Oxygen Delivery Room Air Fraction of Inspired Oxygen 03/12/24 04:00 03/12/24 04:00 03/12/24 06:00 Temperature 97.8 F Pulse Rate 113 H 69 147 H Respiratory Rate 18 Blood Pressure 115/76 Pulse Oximetry 100 Oxygen Delivery Fraction of Inspired Oxygen Intake/Output Intake/Output: Intake & Output 03/09/24 03/10/24 03/11/24 03/12/24 23:59 23:59 23:59 22:59 Intake Total 64.6 1670 3481 Output Total 650 0 Balance 64.6 1020 3481 Meds/Results Medications: Active Medications Generic Name Dose Route Start Last Admin Trade Name Freq PRN Reason Stop Dose Admin Apixaban 5 mg 03/09/24 22:10 03/11/24 22:03 Apixaban 5 Mg Tablet PO 5 mg Q12HR [facility] Administration Digoxin 125 mcg 03/12/24 09:00 Digoxin Tab 125 Mcg [facility] Metoprol[facility] Tartrate 50 mg 03/10/24 21:00 03/11/24 22:03 Metoprolol Tartrate 50 Mg Tab PO 50 mg Q12HR DERRICK Administration Perflutren Lipid Microsphere 0 ml 03/09/24 21:30 Perflutren Lipid Microspheres 1.5 Ml Vial Diluted To 10 Ml Total Volume IV PUSH 03/12/24 21:30 ONCE PRN adequate visualization Protocol Radiology Results: ITS Impressions Chest CTA 03/09/24 17:30 IMPRESSION: 1. Fluid seen anterior to the ascending aorta and arch which is most likely pericardial effusion with minimal effusion seen posteriorly to the heart. Echocardiography for further evaluation advised. 2. No pulmonary embolism. 3. No acute cardiopulmonary pathology. 4. Cardiomegaly 5. Cholelithiasis. 6. Left adrenal adenoma. Labs Labs: Laboratory Results - last 24 hr 03/12/24 03/12/24 04:33 04:34 WBC 6.0 RBC 4.02 L Hgb 13.0 L Hct 39.5 L MCV 98.3 MCH 32.3 MCHC 32.9 RDW 13.2 Plt Count 165 MPV 10.4 Immature Gran % (Auto) 0.2 Neut % (Auto) 44.9 L Lymph % (Auto) 41.1 [place] % (Auto) 8.5 Eos % (Auto) 4.8 H Baso % (Auto) 0.5 Lymph # (Auto) 2.47 [place] # (Auto) 0.5 Eos # (Auto) 0.3 Baso # (Auto) 0.0 Abs Immat Gran (auto) 0.01 Absolute Neuts (auto) 2.7 Absolute Nucleated RBC 0.000 Nucleated RBC % 0.0 Sodium 140 Potassium 4.3 Chloride 106 Carbon Dioxide 27 Anion Gap 7 BUN 18 Creatinine 1.00 Estim Creat Clear Calc 72 Estimated GFR > 60 Glucose 87 Calcium 8.8 Magnesium 2.1 Total Bilirubin 0.8 AST 19 ALT 21 Alkaline Phosphatase 42 Total Protein 6.0 L Albumin 3.6
[2024-03-12] MEDS: DIGOXIN TAB 125 MCG TABLET PO (08:48)
[2024-03-12] MEDS: METOPROLOL TARTRATE 50 MG TAB PO ×2 (08:48→20:41)
[2024-03-12] MEDS: APIXABAN 5 MG TABLET PO ×2 (08:49→20:41)
--- NOTE | 2024-03-12 12:17 | P.PNIM_ITS ---
Progress Note: A&P Assessment and Plan (1) Atrial fibrillation with RVR: Code(s): I48.91 - Unspecified atrial fibrillation Status: Acute (2) Hypertension: Code(s): I10 - Essential (primary) hypertension Status: Acute (3) Obesity (BMI 30.0-34.9): Code(s): E66.811 - Obesity, class 1 Status: Acute Plan This is a 68-year-old male who presented to the ER for abnormal outpatient EKG. He was noted to be in AFib with RVR. No prior history of atrial fibrillation. He has been symptomatic over the past couple of weeks with shortness of breath on exertion. On arrival to the ED his heart rate was in 140s 150s. EKG showed atrial fibrillation with rapid ventricular rate. Received a dose of 10 mg diltiazem and subsequently was started on diltiazem drip. Laboratory workup revealed WBC of 7 hemoglobin 13.2 Chem panel was unremarkable. Troponin serial was negative. TSH normal. CTA chest was done which showed fluid seen anterior to ascending aorta and arch which is most likely pericardial effusion with minimal effusion seen posteriorly to the heart. No PE or any acute cardiopulmonary pathology. Left adrenal adenoma is noted with cholelithiasis. While on diltiazem drip his heart rate lower to 50s and 60s and hence this was discontinued He has been started on metoprolol 25 mg b.i.d.. AFib with RVR still not controlled. Will uptitrated to 50 mg b.i.d.. Echo with EF 55-60% [id number] MR [id number] TR mild pulmonary hypertension diastolic dysfunction. Chads Vasc score 2 and Eliquis has been started. Cardiology consulted. Added on diltiazem. which has been now discontinued and digoxin has been added Hypertension on Norvasc was discontinued Obesity Possible sleep apnea. Need outpatient follow-up . Pauses during sleep up to stage 2nd no need for pacemaker. Apnea link with high AHI. With severe sinus pauses, will check with Pulmonary/ Sleep if we can initiate CPAP treatment for him as this would be helpful DVT prophylaxis Eliquis Code status full code Subjective Date/time seen: 03/12/24 12:17 Interval history: no overnight events. Apnea link test reviewed. AFib is still not controlled. Digoxin has been added today. Has several pauses at night. Mostly 2 seconds. Longest pause was on 03/10/2024 which was 8 seconds long. Review of Systems Review of Systems: All systems reviewed & are unremarkable except as noted in HPI and below Exam Narrative: GENERAL: Well-appearing, In no acute distress, pleasant cooperative HEAD: Normocephalic, atraumatic. EYES: PERRLA and EOMI. ENT: Mucous membranes moist. NECK: Supple. CHEST: Clear to auscultation. No respiratory distress. HEART: tachycardic, irregular rhythm AFib on telemetry ABDOMEN: Soft, nontender, nondistended EXTREMITIES: Normal range of motion. No edema. SKIN: Warm, dry, no rash. NEURO: No focal deficits. Alert and oriented x3. PSYCH: Normal mood and affect. Objective Data Vital Signs Vital Signs: Vital Signs - 24 hr 03/11/24 15:57 03/11/24 14:00 03/11/24 16:00 Temperature 97.8 F Pulse Rate 88 92 92 Respiratory Rate 16 Blood Pressure 122/77 Pulse Oximetry 97 Oxygen Delivery Fraction of Inspired Oxygen 03/11/24 16:00 03/11/24 18:00 03/11/24 20:00 Temperature 98.0 F Pulse Rate 95 99 113 H Respiratory Rate 16 18 Blood Pressure 127/80 Pulse Oximetry 98 97 Oxygen Delivery Room Air Fraction of Inspired Oxygen 21 03/11/24 22:03 03/11/24 20:00 03/11/24 22:56 Temperature Pulse Rate 119 H Respiratory Rate Blood Pressure Pulse Oximetry 97 Oxygen Delivery Room Air Room Air Fraction of Inspired Oxygen 03/11/24 23:12 03/11/24 20:00 03/11/24 22:00 Temperature 98.1 F Pulse Rate 121 H 115 H 109 H Respiratory Rate 18 Blood Pressure 119/86 Pulse Oximetry 96 Oxygen Delivery Fraction of Inspired Oxygen 03/12/24 00:00 03/12/24 01:06 [employer]FF [employer] 03/12/24 04:00 Temperature Pulse Rate 85 85 Respiratory Rate Blood Pressure Pulse Oximetry Oxygen Delivery Room Air Fraction of Inspired Oxygen 03/12/24 04:00 03/12/24 04:00 03/12/24 06:00 Temperature 97.8 F Pulse Rate 113 H 69 147 H Respiratory Rate 18 Blood Pressure 115/76 Pulse Oximetry 100 Oxygen Delivery Fraction of Inspired Oxygen 03/12/24 08:00 03/12/24 08:48 03/12/24 08:48 Temperature 98.5 F Pulse Rate 72 146 H 146 H Respiratory Rate 18 Blood Pressure 135/115 H Pulse Oximetry 99 Oxygen Delivery Fraction of Inspired Oxygen 03/12/24 11:53 Temperature Pulse Rate 118 H Respiratory Rate 20 Blood Pressure 113/79 Pulse Oximetry 97 Oxygen Delivery Fraction of Inspired Oxygen Intake/Output Intake/Output: Intake & Output 03/09/24 03/10/24 03/11/24 03/12/24 23:59 23:59 23:59 22:59 Intake Total 64.6 1670 3481 240 Output Total 650 0 Balance 64.6 1020 3481 240 Meds/Results Medications: Active Medications Generic Name Dose Route Start Last Admin Trade Name Freq PRN Reason Stop Dose Admin Apixaban 5 mg 03/09/24 22:10 03/12/24 08:49 Apixaban 5 Mg Tablet PO 5 mg Q12HR DERRICK Administration Digoxin 125 mcg 03/12/24 09:00 03/12/24 08:48 Digoxin Tab 125 Mcg Tablet PO 125 mcg QAM DERRICK Administration Metoprolol Tartrate 50 mg 03/10/24 21:00 03/12/24 08:48 Metoprolol Tartrate 50 Mg Tab PO 50 mg Q12HR DERRICK Administration Perflutren Lipid Microsphere 0 ml 03/09/24 21:30 Perflutren Lipid Microspheres 1.5 Ml Vial Diluted To 10 Ml Total Volume IV PUSH 03/12/24 21:30 ONCE PRN adequate visualization Protocol Radiology Results: ITS Impressions Chest CTA 03/09/24 17:30 IMPRESSION: 1. Fluid seen anterior to the ascending aorta and arch which is most likely pericardial effusion with minimal effusion seen posteriorly to the heart. Echocardiography for further evaluation advised. 2. No pulmonary embolism. 3. No acute cardiopulmonary pathology. 4. Cardiomegaly 5. Cholelithiasis. 6. Left adrenal adenoma. Labs Labs: Laboratory Results - last 24 hr 03/12/24 03/12/24 04:33 04:34 WBC 6.0 RBC 4.02 L Hgb 13.0 L Hct 39.5 L MCV 98.3 MCH 32.3 MCHC 32.9 RDW 13.2 Plt Count 165 MPV 10.4 Immature Gran % (Auto) 0.2 Neut % (Auto) 44.9 L Lymph % (Auto) 41.1 [place] % (Auto) 8.5 Eos % (Auto) 4.8 H Baso % (Auto) 0.5 Lymph # (Auto) 2.47 [place] # (Auto) 0.5 Eos # (Auto) 0.3 Baso # (Auto) 0.0 Abs Immat Gran (auto) 0.01 Absolute Neuts (auto) 2.7 Absolute Nucleated RBC 0.000 Nucleated RBC % 0.0 Sodium 140 Potassium 4.3 Chloride 106 Carbon Dioxide 27 Anion Gap 7 BUN 18 Creatinine 1.00 Estim Creat Clear Calc 72 Estimated GFR > 60 Glucose 87 Calcium 8.8 Magnesium 2.1 Total Bilirubin 0.8 AST 19 ALT 21 Alkaline Phosphatase 42 Total Protein 6.0 L Albumin 3.6
[2024-03-13] VITALS (23 sets, daily range): BP systolic 94–149; BP diastolic 57–89; PULSE 80–144; RESP 20–30; TEMP 36.4–37.2; O2SAT 94–98
--- NOTE | 2024-03-13 07:59 | P.PNCA_ITS ---
Progress Note: A&P Assessment and Plan (1) Atrial fibrillation with RVR: Code(s): I48.91 - Unspecified atrial fibrillation Status: Acute Assessment and Plan: Could be related to undiagnosed HOLLAND. [id number] 2. On Eliquis 5 mg BID. Rate control with Metoprolol Tartate 50 mg every 12 hours. 03/10/24 Echo with EF 55-60%, diastolic dysfunction (E/e' 12), mod LAE, RVSP 45 mmHg. To improve HR control, start Digoxin 125 mcg daily. If HR is OK today with medication, then may d/c home from cardiology standpoint and f/u with me within a week. Needs outpatient sleep study. (2) Obesity (BMI 30.0-34.9): Code(s): E66.811 - Obesity, class 1 Status: Acute (3) Hypertension: Code(s): I10 - Essential (primary) hypertension Status: Acute Assessment and Plan: Stable. (4) Sinus pause: Code(s): I45.5 - Other specified heart block Status: Acute Assessment and Plan: Long pauses during sleep up to 8 seconds at 2:34 am on 03/11/24. Due to [place]. No need for pacemaker as it is not happening while awake. Subjective Date/time seen: 03/13/24 07:59 Interval history: Denies chest pain or sob. Exam Const: General: cooperative, healthy appearing and comfortable Orientation/consciousness: oriented to person, oriented to place and oriented to time Resp: Auscultation: clear to auscultation bilaterally, no crackles, no rales, no rhonchi and no wheezes Cardio: Rate: regular rate Rhythm: abnormal rhythm Heart sounds: no murmurs Peripheral pulses: dorsalis pedis present Neuro: General: oriented to person, oriented to place and oriented to time Extrem: Right lower extremity: no edema Left lower extremity: no edema Objective Data Vital Signs Vital Signs: Vital Signs - 24 hr 03/12/24 08:00 03/12/24 08:48 03/12/24 08:48 Temperature 98.5 F Pulse Rate 72 146 H 146 H Respiratory Rate 18 Blood Pressure 135/115 H Pulse Oximetry 99 Oxygen Delivery 03/12/24 11:53 03/12/24 08:00 03/12/24 10:00 Temperature Pulse Rate 118 H 127 H 117 H Respiratory Rate 20 Blood Pressure 113/79 Pulse Oximetry 97 Oxygen Delivery 03/12/24 12:00 03/12/24 08:00 03/12/24 12:00 Temperature Pulse Rate 139 H Respiratory Rate Blood Pressure Pulse Oximetry Oxygen Delivery Room Air Room Air 03/12/24 14:00 03/12/24 16:00 03/12/24 16:00 Temperature 98.9 F Pulse Rate 145 H 105 H 112 H Respiratory Rate 20 Blood Pressure 105/69 Pulse Oximetry 98 Oxygen Delivery 03/12/24 18:00 03/12/24 16:00 03/12/24 20:03 Temperature 98.0 F Pulse Rate 115 H 136 H Respiratory Rate 20 Blood Pressure 129/78 Pulse Oximetry 96 Oxygen Delivery Room Air 03/12/24 20:41 03/12/24 20:00 03/12/24 22:00 Temperature Pulse Rate 124 H 130 H 106 H Respiratory Rate Blood Pressure Pulse Oximetry Oxygen Delivery 03/13/24 00:25 03/13/24 00:00 03/13/24 02:00 Temperature 98.9 F Pulse Rate 82 98 80 Respiratory Rate 20 Blood Pressure 94/57 L Pulse Oximetry 94 Oxygen Delivery 03/13/24 04:00 03/13/24 05:32 03/13/24 06:00 Temperature 98.1 F Pulse Rate 91 86 82 Respiratory Rate 20 Blood Pressure 96/65 L Pulse Oximetry 95 Oxygen Delivery 03/13/24 07:30 Temperature 98.0 F Pulse Rate 109 H Respiratory Rate 20 Blood Pressure 130/58 L Pulse Oximetry 97 Oxygen Delivery Intake/Output Intake/Output: Intake & Output 03/11/24 03/12/24 03/12/24 03/13/24 00:59 00:59 23:59 23:59 Intake Total 300 Output Total Balance 300 Meds/Results Medications: Active Medications Generic Name Dose Route Start Last Admin Trade Name Freq PRN Reason Stop Dose Admin Apixaban 5 mg 03/09/24 22:10 03/12/24 20:41 Apixaban 5 Mg Tablet PO 5 mg Q12HR DERRICK Administration Digoxin 125 mcg 03/12/24 09:00 03/12/24 08:48 Digoxin Tab 125 Mcg Tablet PO 125 mcg QAM DERRICK Administration Metoprolol Tartrate 50 mg 03/10/24 21:00 03/12/24 20:41 Metoprolol Tartrate 50 Mg Tab PO 50 mg Q12HR DERRICK Administration Radiology Results: ITS Impressions Chest CTA 03/09/24 17:30 IMPRESSION: 1. Fluid seen anterior to the ascending aorta and arch which is most likely p ericardial effusion with minimal effusion seen posteriorly to the heart. Echocardiography for further evaluation advised. 2. No pulmonary embolism. 3. No acute cardiopulmonary pathology. 4. Cardiomegaly 5. Cholelithiasis. 6. Left adrenal adenoma.
[2024-03-13] MEDS: METOPROLOL TARTRATE 50 MG TAB PO ×2 (08:44→22:18)
[2024-03-13] MEDS: DIGOXIN TAB 125 MCG TABLET PO ×2 (08:44→18:53)
[2024-03-13] MEDS: APIXABAN 5 MG TABLET PO ×2 (08:44→22:18)
--- NOTE | 2024-03-13 15:31 | PCRCNOTE ---
SPOKE TO DR HASSAN IN REGARDS TO ARRANGING AUTOPAP FOR PT UPON D/C UNTIL HE CAN GET INTO SLEEP LAB FOR FORMAL STUDY WITH TITRATION. ORDER SENT TO [facility], THEY WILL SUBMIT TO INSURANCE AND ONCE APPROVED (1-2 DAYS) THEY WILL SET UP CPAP UNIT AND INSTRUCT WITH PT IN HIS HOME. 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 SUNNY AT [facility] IS CONTACT FOR [facility] [place]
--- NOTE | 2024-03-13 18:30 | PM.IMPN ---
Progress Note: A&P Assessment and Plan (1) Atrial fibrillation with RVR: Code(s): I48.91 - Unspecified atrial fibrillation Status: Acute (2) Hypertension: Code(s): I10 - Essential (primary) hypertension Status: Acute (3) Obesity (BMI 30.0-34.9): Code(s): E66.811 - Obesity, class 1 Status: Acute Plan This is a 68-year-old male who presented to the ER for abnormal outpatient EKG. He was noted to be in AFib with RVR. No prior history of atrial fibrillation. He has been symptomatic over the past couple of weeks with shortness of breath on exertion. On arrival to the ED his heart rate was in 140s 150s. EKG showed atrial fibrillation with rapid ventricular rate. Received a dose of 10 mg diltiazem and subsequently was started on diltiazem drip. Laboratory workup revealed WBC of 7 hemoglobin 13.2 Chem panel was unremarkable. Troponin serial was negative. TSH normal. CTA chest was done which showed fluid seen anterior to ascending aorta and arch which is most likely pericardial effusion with minimal effusion seen posteriorly to the heart. No PE or any acute cardiopulmonary pathology. Left adrenal adenoma is noted with cholelithiasis. While on diltiazem drip his heart rate lower to 50s and 60s and hence this was discontinued He has been started on metoprolol 25 mg b.i.d.. AFib with RVR still not controlled. Will uptitrated to 50 mg b.i.d.. Echo with EF 55-60% [id number] MR [id number] TR mild pulmonary hypertension diastolic dysfunction. Chads Vasc score 2 and Eliquis has been started. Cardiology consulted. Added on diltiazem. which has been now discontinued and digoxin has been added. Will give extra dose today. Hypertension on Norvasc was discontinued Obesity Possible sleep apnea. Need outpatient follow-up . Pauses during sleep up to stage 2nd no need for pacemaker. Apnea link with high AHI. With severe sinus pauses, discussed with Pulmonary/ Sleep to initiate CPAP treatment. Order sent. Will start CPAP auto PAP at night tonight DVT prophylaxis Eliquis Code status full code Subjective Date/time seen: 03/13/24 18:30 Interval history: No overnight events. No new complaints. No shortness of breath no chest pain. Telemetry reviewed. Review of Systems Review of Systems: All systems reviewed & are unremarkable except as noted in HPI and below Exam Narrative: GENERAL: Well-appearing, In no acute distress, pleasant cooperative HEAD: Normocephalic, atraumatic. EYES: PERRLA and EOMI. ENT: Mucous membranes moist. NECK: Supple. CHEST: Clear to auscultation. No respiratory distress. HEART: tachycardic, irregular rhythm AFib on telemetry ABDOMEN: Soft, nontender, nondistended EXTREMITIES: Normal range of motion. No edema. SKIN: Warm, dry, no rash. NEURO: No focal deficits. Alert and oriented x3. PSYCH: Normal mood and affect. Objective Data Vital Signs Vital Signs: Vital Signs - 24 hr 03/12/24 20:03 03/12/24 20:41 03/12/24 20:00 Temperature 98.0 F Pulse Rate 136 H 124 H 130 H Respiratory Rate 20 Blood Pressure 129/78 Pulse Oximetry 96 Oxygen Delivery 03/12/24 22:00 03/13/24 00:25 03/13/24 00:00 Temperature 98.9 F Pulse Rate 106 H 82 98 Respiratory Rate 20 Blood Pressure 94/57 L Pulse Oximetry 94 Oxygen Delivery 03/13/24 02:00 03/13/24 04:00 03/13/24 05:32 Temperature 98.1 F Pulse Rate 80 91 86 Respiratory Rate 20 Blood Pressure 96/65 L Pulse Oximetry 95 Oxygen Delivery 03/13/24 06:00 03/13/24 07:30 03/13/24 08:44 Temperature 98.0 F Pulse Rate 82 109 H 132 H Respiratory Rate 20 Blood Pressure 130/58 L Pulse Oximetry 97 Oxygen Delivery 03/13/24 08:44 03/13/24 08:00 03/13/24 08:00 Temperature Pulse Rate 132 H 144 H Respiratory Rate Blood Pressure Pulse Oximetry Oxygen Delivery Room Air 03/13/24 10:00 03/13/24 11:22 03/13/24 12:00 Temperature 97.5 F L Pulse Rate 96 116 H 116 H Respiratory Rate 20 Blood Pressure 120/89 Pulse Oximetry 97 Oxygen Delivery 03/13/24 12:00 03/13/24 15:50 03/13/24 14:00 Temperature 98.1 F Pulse Rate 124 H 104 H Respiratory Rate 20 Blood Pressure 136/87 Pulse Oximetry 98 Oxygen Delivery Room Air 03/13/24 16:00 03/13/24 16:00 Temperature Pulse Rate 101 H Respiratory Rate Blood Pressure Pulse Oximetry Oxygen Delivery Room Air Intake/Output Intake/Output: Intake & Output 03/11/24 03/12/24 03/12/24 03/13/24 00:59 00:59 23:59 23:59 Intake Total 1730 Output Total Balance 1730 Meds/Results Medications: Active Medications Generic Name Dose Route Start Last Admin Trade Name Roshan PRN Reason Stop Dose Admin Apixaban 5 mg 03/09/24 22:10 03/13/24 08:44 Apixaban 5 Mg Tablet PO 5 mg Q12HR DERRICK Administration Digoxin 125 mcg 03/12/24 09:00 03/13/24 08:44 Digoxin Tab 125 Mcg Tablet PO 125 mcg QAM DERRICK Administration Digoxin 125 mcg 03/13/24 18:29 Digoxin Tab 125 Mcg Tablet PO 03/13/24 18:30 ONCE ONE Metoprolol Tartrate 50 mg 03/10/24 21:00 03/13/24 08:44 Metoprolol Tartrate 50 Mg Tab PO 50 mg Q12HR DERRICK Administration Radiology Results: ITS Impressions Chest CTA 03/09/24 17:30 IMPRESSION: 1. Fluid seen anterior to the ascending aorta and arch which is most likely pericardial effusion with minimal effusion seen posteriorly to the heart. Echocardiography for further evaluation advised. 2. No pulmonary embolism. 3. No acute cardiopulmonary pathology. 4. Cardiomegaly 5. Cholelithiasis. 6. Left adrenal adenoma.
[2024-03-14] VITALS (12 sets, daily range): BP systolic 126–139; BP diastolic 70–95; PULSE 71–140; RESP 16–30; TEMP 36.4–36.9; O2SAT 97–99
--- NOTE | 2024-03-14 07:48 | P.PNCA_ITS ---
Progress Note: A&P Assessment and Plan (1) Atrial fibrillation with RVR: Code(s): I48.91 - Unspecified atrial fibrillation Status: Acute Assessment and Plan: Could be related to undiagnosed HOLLAND. [id number] 2. On Eliquis 5 mg BID. Rate control with Metoprolol Tartate 50 mg every 12 hours and Digoxin 125 mcg daily. 03/10/24 Echo with EF 55-60%, diastolic dysfunction (E/e' 12), mod LAE, RVSP 45 mmHg. Increase Metoprolol Tartate 100 mg BID. If HR is OK today with medication, then may d/c home from cardiology standpoint and f/u with me within a week. Needs outpatient sleep study. (2) Obesity (BMI 30.0-34.9): Code(s): E66.811 - Obesity, class 1 Status: Acute (3) Hypertension: Code(s): I10 - Essential (primary) hypertension Status: Acute Assessment and Plan: Stable. (4) Sinus pause: Code(s): I45.5 - Other specified heart block Status: Acute Assessment and Plan: Long pauses during sleep up to 8 seconds at 2:34 am on 03/11/24. Due to HOLLAND. With CPAP, no pauses noted on telemetry. No need for pacemaker as it is not happening while awake. Subjective Date/time seen: 03/14/24 07:48 Interval history: Trial of CPAP last night. Denies chest pain or sob. Exam Const: General: cooperative, healthy appearing and comfortable Orientation/consciousness: oriented to person, oriented to place and oriented to time Resp: Auscultation: clear to auscultation bilaterally, no crackles, no rales, no rhonchi and no wheezes Cardio: Rate: tachycardic Rhythm: abnormal rhythm Heart sounds: no murmurs Peripheral pulses: dorsalis pedis present Neuro: General: oriented to person, oriented to place and oriented to time Extrem: Right lower extremity: no edema Left lower extremity: no edema Objective Data Vital Signs Vital Signs: Vital Signs - 24 hr 03/13/24 08:44 03/13/24 08:44 03/13/24 08:00 Temperature Pulse Rate 132 H 132 H 144 H Respiratory Rate Blood Pressure Pulse Oximetry Oxygen Delivery 03/13/24 08:00 03/13/24 10:00 03/13/24 11:22 Temperature 97.5 F L Pulse Rate 96 116 H Respiratory Rate 20 Blood Pressure 120/89 Pulse Oximetry 97 Oxygen Delivery Room Air 03/13/24 12:00 03/13/24 12:00 03/13/24 15:50 Temperature 98.1 F Pulse Rate 116 H 124 H Respiratory Rate 20 Blood Pressure 136/87 Pulse Oximetry 98 Oxygen Delivery Room Air 03/13/24 14:00 03/13/24 16:00 03/13/24 16:00 Temperature Pulse Rate 104 H 101 H Respiratory Rate Blood Pressure Pulse Oximetry Oxygen Delivery Room Air 03/13/24 18:00 03/13/24 18:53 03/13/24 19:54 Temperature 98.3 F Pulse Rate 133 H 122 H 115 H Respiratory Rate 20 Blood Pressure 149/87 H Pulse Oximetry 96 Oxygen Delivery 03/13/24 19:55 03/13/24 19:57 03/13/24 22:00 Temperature Pulse Rate 106 H 106 H 94 Respiratory Rate 20 Blood Pressure Pulse Oximetry 96 Oxygen Delivery Room Air 03/13/24 22:18 03/13/24 23:35 03/14/24 00:07 Temperature 97.9 F Pulse Rate 100 124 H 102 H Respiratory Rate 30 H 20 Blood Pressure 139/95 H Pulse Oximetry 97 Oxygen Delivery Autopap 03/14/24 00:00 03/14/24 00:00 03/14/24 02:00 Temperature Pulse Rate 93 95 80 Respiratory Rate 20 Blood Pressure Pulse Oximetry 97 Oxygen Delivery Autopap 03/14/24 04:18 03/14/24 04:45 03/14/24 04:00 Temperature 97.6 F Pulse Rate 140 H 84 86 Respiratory Rate 20 30 H Blood Pressure 126/85 Pulse Oximetry 99 Oxygen Delivery Autopap 03/14/24 04:00 03/14/24 06:00 Temperature Pulse Rate 84 71 Respiratory Rate 18 Blood Pressure Pulse Oximetry 99 Oxygen Delivery Autopap Intake/Output Intake/Output: Intake & Output 03/12/24 03/12/24 03/13/24 03/14/24 00:59 23:59 23:59 23:59 Intake Total 1730 1100 Output Total Balance 1730 1100 Meds/Results Medications: Active Medications Generic Name Dose Route Start Last Admin Trade Name Freq PRN Reason Stop Dose Admin Apixaban 5 mg 03/09/24 22:10 03/13/24 22:18 Apixaban 5 Mg Tablet PO 5 mg Q12HR REPLACED BY [facility] Administration Digoxin 125 mcg 03/12/24 09:00 03/13/24 08:44 Digoxin Tab 125 Mcg Tablet PO 125 mcg QAM REPLACED BY [facility] Administration Metoprolol Tartrate 100 mg 03/14/24 09:00 Metoprolol Tartrate 50 Mg Tab PO Q12HR REPLACED BY [facility] Radiology Results: ITS Impressions Chest CTA 03/09/24 17:30 IMPRESSION: 1. Fluid seen anterior to the ascending aorta and arch which is most likely pericardial effusion with minimal effusion seen posteriorly to the heart. Echocardiography for further evaluation advised. 2. No pulmonary embolism. 3. No acute cardiopulmonary pathology. 4. Cardiomegaly 5. Cholelithiasis. 6. Left adrenal adenoma.
[2024-03-14] MEDS: DIGOXIN TAB 125 MCG TABLET PO (08:30)
[2024-03-14] MEDS: APIXABAN 5 MG TABLET PO (08:30)
[2024-03-14] MEDS: METOPROLOL TARTRATE 50 MG TAB 100 MG PO (08:30)
--- NOTE | 2024-03-14 14:53 | P.DS_ITS ---
DS: Admitting Diagnosis Discharge Date 03/14/2024 Admitting Diagnosis Shortness of breath DS: Discharge Diagnosis Discharge Diagnosis (1) Atrial fibrillation with RVR: Code(s): I48.91 - Unspecified atrial fibrillation Status: Acute (2) Hypertension: Code(s): I10 - Essential (primary) hypertension Status: Acute (3) Obesity (BMI 30.0-34.9): Code(s): E66.811 - Obesity, class 1 Status: Acute DS: Summary Hospital Course Hospital Course: This is a 68-year-old male who presented to the ER for abnormal outpatient EKG. He was noted to be in AFib with RVR. No prior history of atrial fibrillation. He has been symptomatic over the past couple of weeks with shortness of breath on exertion. On arrival to the ED his heart rate was in 140s 150s. EKG showed atrial fibrillation with rapid ventricular rate. Received a dose of 10 mg diltiazem and subsequently was started on diltiazem drip. Laboratory workup revealed WBC of 7 hemoglobin 13.2 Chem panel was unremarkable. Troponin serial was negative. TSH normal. CTA chest was done which showed fluid seen anterior to ascending aorta and arch which is most likely pericardial effusion with minimal effusion seen posteriorly to the heart. No PE or any acute cardiopulmonary pathology. Left adrenal adenoma is noted with cholelithi asis. While on diltiazem drip his heart rate lower to 50s and 60s and hence this was discontinued He has been started on metoprolol 25 mg b.i.d.. AFib with RVR still not controlled. uptitrated to 50 mg b.i.d and subsequently to 100 mg po bid. Echo with EF 55-60% [id number] MR [id number] TR mild pulmonary hypertension diastolic dysfunction. Chads Vasc score 2 and Eliquis has been started. Cardiology consulted. Added on diltiazem. which has been now discontinued and digoxin has been added as well. he will continue to follow with cardiology as op basis. Hypertension on Norvasc was discontinued now also he has been on metoprolol Obesity Possible sleep apnea. Need outpatient follow-up . Pauses during sleep up to stage 2nd no need for pacemaker. Apnea link with high AHI. With severe sinus pauses, discussed initiation of auto CPAP which was arranged and approved for use. he will need to follow up with sleep medicine for sleepstudy and formal evaluation. DVT prophylaxis Eliquis Code status full code Time Spent with Patient Time attestation: Total time spent providing and/or coordinating discharge services:45 mins Exam Narrative: GENERAL: Well-appearing, In no acute distress, pleasant cooperative HEAD: Normocephalic, atraumatic. EYES: PERRLA and EOMI. ENT: Mucous membranes moist. NECK: Supple. CHEST: Clear to auscultation. No respiratory distress. HEART: Mildly tachycardic, irregular rhythm AFib on telemetry ABDOMEN: Soft, nontender, nondistended EXTREMITIES: Normal range of motion. No edema. SKIN: Warm, dry, no rash. NEURO: No focal deficits. Alert and oriented x3. PSYCH: Normal mood and affect. DS: Data Imaging Radiologist's impression: ITS Impressions Chest CTA 03/09/24 17:30 IMPRESSION: 1. Fluid seen anterior to the ascending aorta and arch which is most likely pericardial effusion with minimal effusion seen posteriorly to the heart. Echocardiography for further evaluation advised. 2. No pulmonary embolism. 3. No acute cardiopulmonary pathology. 4. Cardiomegaly 5. Cholelithiasis. 6. Left adrenal adenoma. Discharge Plan Discharge Attending physician on discharge: Jeff Gu Consulting providers: Won Mcginnis Discharging Clinician: Jeff Gu Anticipated Discharge Date/Time: 03/14/24 14:37 Patient Disposition: Home, Self-Care Activity: as tolerated Diet: heart healthy Discharge Instructions: AFIB auto PAP at night which is approved through your insurance Patient Instructions: Antibiotic Form, Metoprolol (By mouth), Diltiazem (By mouth), Apixaban (By mouth), A-fib (Atrial Fibrillation) (DC), Safe Use of Anticoagulants (DC) Stand Alone Forms: General Discharge Information Follow-up/Referrals: Arin Ramírez MD [Primary Care Provider] - 1 Week Tory Alexis MD [Physician] - 1 Week Won Mcginnis DO [Physician] - 1 Week Discharge Medications: New Eliquis 5 mg Tablet 5 mg PO Q12HR Qty: 60 0RF digoxin 125 mcg (0.125 mg) Tablet 125 mcg PO QAM Qty: 30 0RF metoprolol tartrate 50 mg Tablet 100 mg PO Q12HR Qty: 60 0RF Discontinued amlodipine 5 mg tablet 5 mg PO DAILY Qty: 90 1RF Date of admission: 03/09/24 18:22 Primary Care Provider: Arin Ramírez Admitting Provider: Jeff Gu Attending physician on admission: Jeff Gu Condition: Improved
== END 2024-03-14 15:41 | disposition home or self-care (01) ==
LOC: ANHED 15:50 → ANHIMU 20:34
PROVIDERS: Physician Assistant; Admitting Provider Internal Medicine; Emergency Provider Emergency Medicine; PCP Family Medicine; Visit Provider Internal Medicine
DX: I48.91 Unspecified atrial fibrillation (principal); I10 Essential (primary) hypertension; E66.811 Obesity, class 1; Z68.34 Body mass index [BMI] 34.0-34.9, adult; I45.5 Other specified heart block; R94.31 Abnormal electrocardiogram [ECG] [EKG]; D35.02 Benign neoplasm of left adrenal gland; K80.20 Calculus of gallbladder without cholecystitis without obstruction; Z79.899 Other long term (current) drug therapy; Z98.1 Arthrodesis status
CPT/HCPCS: 36415; 71275; 80053; 83690; 83735; 84443; 84484; 85025; 85380; 85610; 85730; 93005; 93306; 94002; 94762; 96365; 96366; 99285; A9270; G0378; Q9967

== ENCOUNTER 2024-06-08 09:04 | Outpatient (CLI) | payer MEDICARE, SELFPAY ==
--- NOTE | ~2024-06-08 | CT_ITS ---
EXAMINATION: CT sinus wo con DATE: 06/08/2024 09:34 INDICATION: Nasal congestion TECHNIQUE: Computed tomography (CT) of the paranasal sinuses was performed without intravenous contra st. The dose-length product was 302.19 mGy-cm. Automated exposure control and iterative reconstructio n technique were employed. COMPARISON: None FINDINGS: There is mucosal thickening of the ethmoid, maxillary and sphenoid sinuses. There is a muco us retention cyst of the left maxillary sinus. Mastoids are pneumatized. Rightward nasal septal devia tion. Left ostiomeatal unit is occluded by soft tissue. IMPRESSION: 1. Moderate sinus disease with occlusion of the left ostiomeatal unit. Reviewed, dictated and finalized at location A. ROUTE SUPERVISOR
--- OUTSIDE RECORDS SUMMARY | 2024-06-08 09:28 | XMS_ITS | Continuity of Care Document ---
Author Organization [facility] Address [address] [place] [address] [place] [address] Phone Care Team Providers Care Special Education Administrator Name Role Phone Valentin Castellanos MD Unavailable Unavailable Allergies, Adverse Reactions, Alerts Substance Reaction Status Criticality No Known Allergies Active No Inform ation Procedures Procedure Date OFFICE/OUTPATIENT VISIT, [facility] Advance Directives Directive Yes / No Effective Date File Name No Information Encounters Encounter Description Practice Location Reason(s) For Visit Diagnoses Date Provider Providers Copied on Encounter OFFICE/OUTPAT IENT VISIT, [facility], [address] [place], [place], [id number], [place] tel:[phone] [facility] back pain1 (chief complaint) PneumoniaLumbago with sciatica, left side Emanuel Hanson. [address], [facility] [place], [place], [id number] , [place]. tel:[phone] Family History Family Member Type Diagnosis Age At Onset No Information Payers Payer name Insurance type Covered libertarian ID Authoriza tion(s) No Information Social History [...] Mental Status Date Cognitive Assessment Orientation - [place] ed to time, place, person, situation.Normal Orientation
--- OUTSIDE RECORDS SUMMARY | 2024-06-08 09:28 | XMS_ITS | Clinical Summary ---
Author Organization [facility] Address [address] [place] [address]. [place], [place] [id number] [place] [address] Care Team Providers Care Scallop Binder Name Role Phone None, Provider MD Primary Care Provider Unavaila ble Allergies No known active allergies Medications No known medications Social History Tobacco Use Types Packs/Day Years Used Date Smoking Tobacco: Never Smokeless Tobacco: Never Alcohol Use Standard Drinks/Week Comments Yes 0 (1 standard drink = 0.6 oz pur e alcohol) occasionally Sex and Gender Information Value Date Recorded Sex Assigned at Not on file Legal Sex Male 5:16 PM CDT Gender Identity Not on file Sexual Orientation Not on file Last Filed Vital Signs Vital Sign Reading Time Taken Comments Blood Pressure 144/99 03/27/2020 9:08 PM OPTICAL ENGINEER Pulse 116 03/27/2020 9:07 PM OPTICAL ENGINEER Temperature 36.9 ??C (98.4 ??F) 03/27/2020 9:07 PM CS T Respiratory Rate 20 03/27/2020 9:07 PM OPTICAL ENGINEER Oxygen Saturation 95% 03/27/2020 9:09 PM OPTICAL ENGINEER Inhaled Oxygen Concentration - - Weight 97.5 kg (215 lb) 03/27/2020 9:07 PM OPTICAL ENGINEER Height 170.2 cm (5' 7 ) 03/27/2020 9:07 PM OPTICAL ENGINEER Body Mass Index 33.67 03/27/2020 9:07 PM OPTICAL ENGINEER Plan of Treatment Health Maintenance Due Date Last Done Comments Colorectal Cancer Screening Colonoscopy (10 Years) 1957 Hepatitis C 08/10/1975 DTaP, Tdap and Td Vaccines ( 1 - Tdap) 1976 Zoster Vaccines (1 of 2) 08/10/2007 Pneumococcal Vaccine: 65+ Ye ars (1 of 1 - PCV) 2022 COVID-19 Vaccine ( - 2023-2 5 season) 2024 Influenza Adult (#1) 2024 RSV Immunization or 60+ Years (1 - 1-dose 75+ series) 2032 Meningococcal B Vaccine Aged Out No l onger eligible based on patient's age to complete this topic Meningococcal Vaccine Aged Out No sushma brian eligible based on patient's age to complete this topic RSV Immunizations Under 20 Months Aged Out No longer eligible based on patient's age to complete this topic Insurance [facility] Care Teams Scallop Binder Relationship Specialty Start Date End Date None, Provider, PCP - General 03/27/20
--- OUTSIDE RECORDS SUMMARY | 2024-06-08 09:28 | XMS_ITS | Clinical Summary ---
Author Organization [facility] Address [address] [place] [address] Care Team Providers Care Cannon Fire Direction Specialist Name Role Phone Ronn Miller MD Primary Care Provider [phone] Source Comments [facility] Affiliates and Associated Physician Practices is amultiple site organization consisting of ambulatory clinics and hospital sitesin [place] and [place]. This disclosure is being madepursuant to the Care Everywhere program and may not contain all information available regarding this patient. Last updated 18.[facility] Allergies No known active allergies Medications Be aware that medications may not be up to date on this document. Always verify current medications with the patient. No known medications Active Problems No known active problems Social History Tobacco Use Types Packs/Day Years Used Date Smoking Tobacco: Former Smokeless Tobacco: Former Alcohol Use Standard Drinks/Week Comments Not Currently 0 (1 standard drink = 0.6 oz pur e alcohol) Sex and Gender Information Value Date Recorded Sex Assigned at Not on file Gender Identity Not on file Sexual Orientation Not on file Last Filed Vital Signs Vital Sign Reading Time Taken Comments Blood Pressure 163/94 04/23/2020 4:16 PM BANQUET SET UP PERSON Pulse 93 04/23/2020 4:16 PM BANQUET SET UP PERSON Temperature 35.9 ??C (96.7 ??F) 04/23/2020 3:36 PM CS T Respiratory Rate 13 04/23/2020 4:16 PM BANQUET SET UP PERSON Oxygen Saturation 92% 04/23/2020 4:16 PM BANQUET SET UP PERSON Inhaled Oxygen Concentration - - Weight 98.4 kg (217 lb) 10/02/2020 2:18 PM CDT Height 170.2 cm (5' 7 ) 10/02/2020 2:18 PM CDT Body Mass Index 33.99 10/02/2020 2:18 PM CDT Plan of Treatment Health Maintenance Due Date Last Done Comments COLOGUARD (AGES 45-75) - COL ON CA SCREENING 1957 COLON MONITORING 1957 COLONOSCOPY - COLON CA SCREENING 1957 CT COLONOGRAPHY - COLON CA SCREENING 1955 Colorectal Cancer Screening 1957 FIT - COLON CA SCREENING 1957 FLEX SIG - COLON CA SCREENING 1957 LIPID TESTING 1957 HEPATITIS C SCREENING 08/05/1975 DTAP/TDAP/TD VACCINES (1 - Tdap) 1976 PNEUMOCOCCAL VACCINE 50+ (1 of 1 - PCV) 08/10/2007 ZOSTER VACCINE (1 of 2) 08/10/2007 SCREENING FOR DIABETES 04/03/2020 AAA SCREENING 2022 COVID-19 VACCINE (1 - 2023-2 5 season) 2024 INFLUENZA VACCINE (#1) 2024 DEPRESSION SCREENING 05/10/2024 Respiratory Syncytial Virus (RSV) Vaccine Pt: or over 60 yrs (1 - 1-dose 75+ series) 2032 HEPATITIS B VACCINE Aged Out No longe r eligible based on patient's age to complete this topic HIB VACCINE Aged Out No longer eligi ble based on patient's age to complete this topic HPV VACCINE Aged Out No longer eligi ble based on patient's age to complete this topic MENINGOCOCCAL (Group B) VACCINE Aged Out No longer eligible based on patient's age to complete this topic MENINGOCOCCAL VACCINE Aged Out No sushma brian eligible based on patient's age to complete this topic Medical Devices Implanted Type Area Jazz Singer Device Identifier Shelf Expiration Date Model / Serial / Lot Lens Iol 0 D +21 Edi Mod L Acrsf Iq - [id number] Implanted:Qty: 1 on 04/23/2020 by Glen Mace MD at [facility] Left: Eye [employer] 11/22/2022 [id number] / [id number] / Band Rtnl 125x2x.75mm Susie Crc Implanted:Qty: 1 on 04/23/2020 by Glen Mace MD at [facility] Left: Eye [employer] 01/08/2024 92-01 / / Tire Rtnl 2.5mm Grv Cnvx Susie 7mm Sty 287 Implanted:Qty: 1 on 04/23/2020 by Glen Mace MD at [facility] Left: Eye [employer] 08/07/2024 92-17 / / Care Teams Cannon Fire Direction Specialist Relationship Specialty Start Date End Date Ronn Miller MD [address] [place] [address] PCP - General Family Medicine 04/02/20
--- OUTSIDE RECORDS SUMMARY | 2024-06-08 09:28 | XMS_ITS | Patient Health Summary ---
Author Organization [facility] Address [address] [place] [address] Care Team Providers Care Power Transformer Assembler Name Role Phone Ronn Miller MD Primary Care Provider [phone] Note from [facility],non-owned Affiliates and Associated Physician Practices is amultiple site organization consisting of ambulatory clinics and hospital sitesin [place], [place], [place] and [place]. This disclosure is being madepursuant to the Care Everywhere program and may not contain all information available regarding this patient. Last updated 18.[facility] Allergies No known active allergies Medications Be [...] Comments Blood Pressure 163/94 04/23/2020 4:16 PM DRIVER GUARD Pulse 93 04/23/2020 4:16 PM DRIVER GUARD Temperature 35.9 ??C (96.7 ??F) 04/23/2020 3:36 PM CS T Respiratory Rate 13 04/23/2020 4:16 PM DRIVER GUARD Oxygen Saturation 92% 04/23/2020 4:16 PM DRIVER GUARD Inhaled Oxygen Concentration - - Weight 98.4 kg (217 lb) 10/02/2020 2:18 PM CDT Height 170.2 cm (5' 7 ) 10/02/2020 2:18 PM CDT Body Mass Index 33.99 10/02/2020 2:18 PM CDT Medical Devices Implanted Type Area School Psychology Professor Device Identifier Shelf Expiration Date Model / Serial / Lot Lens Iol 0 D +21 Edi Mod L Acrsf Iq - [id number] Implanted:Qty: 1 on 04/23/2020 by Glen Mace MD at [facility] Left: Eye Maykel [employer] 11/22/2022 [id number] / [id number] / Band Rtnl 125x2x.75mm Susie Crc Implanted:Qty: 1 on 04/23/2020 by Glen Mace MD at [facility] Left: Eye [employer] 01/08/2024 92-01 / / Tire Rtnl 2.5mm Grv Cnvx Susie 7mm Sty 287 Implanted:Qty: 1 on 04/23/2020 by Glen Mace MD at [facility] Left: Eye [employer] 08/07/2024 92-17 / / Procedures * OPH OCT TEST SLU(Performed 09/05/2021) Performed for Retinal detachment, left * OPH OCT TEST SLU(Performed 09/16/2020) Performed for Retinal detachment, left * EXTRACTION CATARACT WITH INSERTION LENS(Performed 04/23/2020) Performed for Left retinal detachment * LARYNGEAL MASK AIRWAY(Performed 04/23/2020) * SARS-COV-2 (COVID-19) IN HOUSE(Performed 04/21/2020) Performed for Retinal detachment, left * OPH IOL TEST SLU(Performed 04/17/2020) Performed for Retinal detachment, left * OPH OCT TEST SLU(Performed 04/17/2020) Performed for Retinal detachment, left * REPAIR DETACHED RETINA / VITRECTOMY(Performed 04/03/2020) Performed for Retinal detachment, left Results * OCT (09/05/2021 9:55 AM CDT) Anatomical Region Laterality Modality Other 09/05/2021 9:55 AM CDT Glen Mace MD [facility] ORDERABLES * OPH OCT TEST SLU (09/16/2020 7:46 AM CDT) Anatomical Region Laterality Modality Other 09/16/2020 7:46 AM CDT [facility] * LARYNGEAL MASK AIRWAY (04/23/2020 1:22 PM DRIVER GUARD) Narrative Melva Veras APRN-CRNA - 04/23/2020 1:22 PM DRIVER GUARD Melva Veras APRN-CRNA ? 04/23/2020 ??3:30 PM LMA Placement Procedure/LDA Note: Patient Location: OR. LMA Insertion Date/Time: ??04/23/2020 1:15 PM Procedure: LMA. Pretreatment: 100% O2 Induction: standard IV Patient position: sniffing. Mask Ventilation: not attempted Type: ??LMA Size: ??4 Number of Attempts: 1. Placement verified by: direct visualization, bilateral breath sounds, chest auscultation and CO2 monitor Dentition unchanged? ??Yes Procedure Start Time: 04/23/2020 1:15 PM. Procedure End Time: 04/23/2020 3:30 PM. Procedure Total Time: 135.75 ??minutes. Staff Section ?? Anesthesia Provider: Hayley Slaughter, SINGH, Performed the procedure Giorgio Hall MD GENERAL ANESTHESIA ORDERABLES * SARS-COV-2 (COVID-19) IN HOUSE (04/21/2020 11:30 AM DRIVER GUARD) COVID-19 PCR Not detected Not detected 04/21/2020 7:25 PM DRIVER GUARD [facility] Microbiology SPECIMEN FROM NASOPHARYNGEAL STRUCTURE / Unknown Collection / Unknown 04/21/2020 11:30 AM DRIVER GUARD 04/21/2020 2:45 PM DRIVER GUARD Narrative [facility] - 04/21/2020 7:25 PM DRIVER GUARD This nucleic acid amplification assay performance was validated by [facility]. This test has been authorized by the Food and Drug administration (FDA)under an Emergency??Use Authorization (EUA). This test has been validated in accordance with the FDA's guidance document Policy for Diagnostic Testing in Laboratories Certified to perform High Complexity Testing under CLIA prior to Emergency Use Authorization for Coronavirus Disease-2019 during the Public Health Emergency issued on July 08, 2019. FDA independent review of this validation is pending. This test is only authorized for the duration of time the declaration that circumstances exist justifying the authorization of emergency use of in vitro diagnostic tests for detection of SARS-CoV-2 virus and/or diagnosis of COVID-19 infection under section 564(b)(1) of the Act, 21 U.S.C 360bbb-3 (b)(1), unless the authorization is terminated or revoked sooner. Fact Sheets for this EUA assay are available upon request. Glen Mace MD LAB - MICRO BIOLOGY ORDERABLES [facility] [address] [place], [place] [address], [facility] [phone] * IOL Master (Lenstar) (04/17/2020 12:11 PM DRIVER GUARD) Anatomical Region Laterality Modality Other 04/17/2020 12:1 1 PM DRIVER GUARD Glen Mace MD [facility] ORDERABLES * OCT (04/17/2020 11:51 AM DRIVER GUARD) Anatomical Region Laterality Modality Other 04/17/2020 11:5 1 AM DRIVER GUARD Glen Mace MD [facility] ORDERABLES Care Teams Power Transformer Assembler Relationship Specialty Start Date End Date Ronn Miller MD [address] [place] [address] PCP - General Family Medicine 04/02/20
--- OUTSIDE RECORDS SUMMARY | 2024-06-08 09:28 | XMS_ITS | Referral Summary ---
Author Organization [facility] Address [address] [place] [address] Care Team Providers Care Practicing Md Anesthesiologist Name Role Phone Ronn Miller MD Primary Care Provider [phone] [facility],non-[facility] Affiliates and Associated Physician Practices is amultiple site organization consisting of ambulatory clinics and hospital sitesin [place], [place], [place] and [place]. This disclosure is being madepursuant to the Care Everywhere program and may not contain all information available regarding this patient. Last updated 18.[facility] Allergies No known active allergies Medications Be [...] Comments Blood Pressure 163/94 04/23/2020 4:16 PM CONTACT PERSON Pulse 93 04/23/2020 4:16 PM CONTACT PERSON Temperature 35.9 ??C (96.7 ??F) 04/23/2020 3:36 PM CS T Respiratory Rate 13 04/23/2020 4:16 PM CONTACT PERSON Oxygen Saturation 92% 04/23/2020 4:16 PM CONTACT PERSON Inhaled Oxygen Concentration - - Weight 98.4 kg (217 lb) 10/02/2020 2:18 PM CDT Height 170.2 cm (5' 7 ) 10/02/2020 2:18 PM CDT Body Mass Index 33.99 10/02/2020 2:18 PM CDT Functional Status Functional Status Response Date of Assess ment Is person deaf or have serious hearing difficult y? No 04/03/2020 Is person blind or have serious difficulty seein g? No 04/03/2020 Does person have serious dif ficulty walking/climbing stairs? No 04/03/2020 Does person have difficulty dressing/bathing? No 04/03/2020 Does person have difficulty doing errands alone? No 04/03/2020 Cognitive Status Response Date of Assessm ent Does person have difficulty concentrating/remembering/making decisions? No 04/03/2020 Plan of Treatment Not on file Medical Devices Implanted Type Area Product Design Manager Device Identifier Shelf Expiration Date Model / Serial / Lot Lens Iol 0 D +21 Edi Mod L Acrsf Iq - [id number] Implanted:Qty: 1 on 04/23/2020 by Glen Mace MD at [facility] Left: Eye [employer] 11/22/2022 [id number] / [id number] / Band Rtnl 125x2x.75mm Susie Crc Implanted:Qty: 1 on 04/23/2020 by Glen Mace MD at [facility] Left: Eye [employer] 01/08/2024 92-01 / / Tire Rtnl 2.5mm Grv Cnvx Susie 7mm Sty 287 Implanted:Qty: 1 on 04/23/2020 by Glen Mace MD at [facility] Left: Eye [employer] 08/07/2024 92-17 / / Care Teams Practicing Md Anesthesiologist Relationship Specialty Start Date End Date Ronn Miller MD [address] [place] [address] PCP - General Family Medicine 04/02/20
--- OUTSIDE RECORDS SUMMARY | 2024-06-08 09:28 | XMS_ITS | Data Portability ---
Author Organization [facility], Main Office Address [address] [place] [address] Care Team Providers Care Case Management Specialist Name Role Phone DORIS MCKEON Primary Care Provider [phone] Assessment No assessment recorded. Plan of Treatment Reminders Order Date Submit Date Provider Last Modified By Organization Details Last Modified Time Details Appointments None record ed. Lab None record ed. Referral None record ed. Procedures None record ed. Surgeries None record ed. Imaging None record ed. Medication Orders None record ed. Patient TargetsNo targets recorded. Patient InstructionsNo instructions recorded. Reason for Referral None Reported. Problems Name Problem SNOMED Code Status Onset Date Resolution Date Notes Provider Name and Address Organization Details Recorded Time Impacted cerumen of bilateral ears 35459053420408 08 Active 2022 Stewart Calderon MD [address] [address], [place], [address] [facility] 12:13:23 Problem Notes None recorded. Medical Equipment None Reported. Allergies No known drug allergies Medications Name Sig Start Date Stop Date Status Note LastModified by Organization Details LastModified Time fluconazole 150 mg tablet active Not Available Not Available No t Available amlodipine 5 mg tablet active Not Available Not Available Not Available ciprofloxacin 0.2 % ear drops in a dropperette active Not Available Not Available Not Available Vitals Date Recorded Body weight Body temperature Body mass index (BMI) Body height Provider Name and Address Organization Details Last Updated DateTime 08/03/2022 97908.42 g 98 [degF] 34.1 kg/m2 170.18 cm Areli Flores RN [facility] [employer] 08/03/2022 11:47:15 Social History Question Answer Notes LastModified by Organizat ion Details LastModified Time Tobacco Smoking Status Never Smoker Areli Flores RN null, [facility] 08/03/2022 11:57:55 What Is Your Level Of Alcohol Consumption? Occasional [email or web address] Information not available 08/03/2022 Sex: Unknown Functional Status None recorded. Mental Status None recorded. Family History Relationship Description Onset Age of this Age Resolved Age Notes LastModified by Organization Details LastModified Time Father Nasal polypectomy [email or web address] Not available 07/09 11:57:37 Medical History Condition Response MRSA N ALLERGIES/HAYFEVER N BACK INJECTIONS N LUNG DISEASE/DISORDER N INSOMNIA N HISTORY OF DRUG ABUSE N ESRD N RADIATION / CHEMOTHERAPY N COPD N HIGH CHOLESTEROL / HYPERLIPIDEMIA N HYPERTHYROIDISM N PVD N BLOOD DISEASES N EAR OR HEARING PROBLEMS N HYPOTHYROIDISM N SHINGLES N DEPRESSION (INCLUDING POST ) N BACK / NECK PROBLEMS N HAVE YOU BEEN HOSPITALIZED OR SEEN IN [facility] ER IN THE PAST YEAR ? N FAILED BACK SYNDROME N STROKE/TIA N POLYCYSTIC OVARIES N OBESITY N ANEURYSM N HISTORY WITH COMPLICATIONS WITH ANESTHES IA ? N Do you have Advance directive? N USE OF BLOOD THINNERS N NO SIGNIFICANT PAST MEDICAL HISTORY N DIABETES, TYPE N VON WILLIBRAND'S DISEASE N PARATHYROID DISEASE N ENT N SEASONAL ALLERGIES N HEARTBURN / REFLUX N POST LAMINECTOMY SYNDROME N HEPATITIS / LIVER DISEASE N SLEEP DISORDER N ARTERIAL INSUFFICIENCY N HEADACHES/MIGRAINES N SEIZURES/EPILEPSY N CHF N PACEMAKER N DIZZINESS N HEART DISEASE/HEART PROBLEMS N AIDS/HIV N NEUROPSYCHOLOGICAL N HYPERTENSION Y CANCER: SPECIFY N TOURETTE'S N BLOOD TRANSFUSION N ANESTHESIA COMPLICATIONS N ANEMIA/BLOOD DISORDER N CHRONIC EAR INFECTIONS N ATRIAL FIBRILLATION N AUTOIMMUNE DISEASE N TUBERCULOSIS N Past Encounters Encounter ID Performer Location Encounter Start Date Encounter Closed Date Diagnosis/Indication Diagnosis SNOMED-CT Code Diagnosis ICD10 Code Diagnosis Note [id number] Stewart Calderon MD [facility] [place] [address] [place] [address] 08/03/2022 11:30:18 08/03/2022 12:15:03 Impacted cerumen of bilateral ears [id number] 667748 H61.23 Health Concerns Section Related Observation LastModified by Organization Detai ls LastModified Time None Recorded Concern Status LastModified by Organization Details LastModified Time None Recorded Advance Directives Directive None Recorded Payers Encounter Date Sequence Insurance Name Policy Number Policy Lezama Covered Member ID Lezama Member ID Guarantor Name 08/03/2022 1 ALYCIA - [facility] [place] Savage Morales [id number] Savage Morales Notes Date Note Type Note Provider Name and Address Organization Details Recorded Time 08/03/2022 text/html Patient reports tenderness hand recurrent cerumen impaction. Stewart Calderon MD [address] [place] [address], [place], [address], [place] - [facility] 08/03/2022 12:14:05
== END 2024-06-08 09:05 | disposition home or self-care (01) ==
PROVIDERS: PCP Family Medicine; Visit Provider Physician Assistant
DX: R09.81 Nasal congestion (principal)
CPT/HCPCS: 70486

== ENCOUNTER 2024-06-15 08:00 | Outpatient (CLI) | payer MEDICARE, SELFPAY ==
--- OUTSIDE RECORDS SUMMARY | 2024-06-15 08:03 | XMS_ITS | Data Portability ---
Author Organization [employer] Main Office Address [address] [place] [address] Care Team Providers Care Oceanic Sciences Professor Name Role Phone DORIS MCKEON Primary Care Provider [phone] Assessment No assessment recorded. Plan of Treatment [...] Recorded Time Impacted cerumen of bilateral ears 20992878401583 08 Active 2022 Stewart Calderon MD [address] [address], [place], [address] [facility] [employer] 12:13:23 Problem Notes None recorded. Medical Equipment [...] Address Organization Details Last Updated DateTime 08/03/2022 93699.42 g 98 [degF] 34.1 kg/m2 170.18 cm Areli Flores RN [facility] [employer] 08/03/2022 11:47:15 Social History Question Answer Notes LastModified by Organizat ion Details LastModified Time Tobacco Smoking Status Never Smoker Areli Flores RN null, [employer] 08/03/2022 11:57:55 What Is Your Level Of [...] N BACK INJECTIONS N LUNG DISEASE/DISORDER N ESRD N HISTORY OF DRUG ABUSE N INSOMNIA N COPD N RADIATION / CHEMOTHERAPY N HIGH CHOLESTEROL / HYPERLIPIDEMIA N HYPERTHYROIDISM N PVD N BLOOD DISEASES N EAR OR HEARING PROBLEMS N HYPOTHYROIDISM N SHINGLES N DEPRESSION (INCLUDING POST ) N BACK / NECK PROBLEMS N HAVE YOU BEEN HOSPITALIZED OR SEEN IN HEALTH SYSTEM ER IN THE PAST YEAR ? N [...] N SLEEP DISORDER N ARTERIAL INSUFFICIENCY N SEIZURES/EPILEPSY N HEADACHES/MIGRAINES N CHF N PACEMAKER N DIZZINESS N [...] SNOMED-CT Code Diagnosis ICD10 Code Diagnosis Note [id number] Stewart Calderon MD [facility] [place] [address] [place] [address] 08/03/2022 11:30:18 08/03/2022 12:15:03 Impacted cerumen of bilateral ears [id number] H61.23 Health Concerns Section Related Observation LastModified by Organization Detai ls LastModified Time None Recorded Concern Status LastModified by Organization Details LastModified Time None Recorded Advance Directives Directive None Recorded Payers Encounter Date Sequence Insurance Name Policy Number Policy Lezama Covered Member ID Lezama Member ID Guarantor Name 08/03/2022 1 ALYCIA - [facility] Savage Morales [id number] Savage Morales Notes Date Note Type Note Provider Name and Address Organization Details Recorded Time 08/03/2022 text/html Patient reports tenderness hand recurrent cerumen impaction. Stewart Calderon MD [address] [place] [address], [place], [address], [place] - [facility] 08/03/2022 12:14:05
--- OUTSIDE RECORDS SUMMARY | 2024-06-15 08:03 | XMS_ITS | Clinical Summary ---
Author Organization [facility] Address [facility] [place] [address] Care Team Providers Care Lace Cutter Name Role Phone None, Provider MD Primary [...] Comments Blood Pressure 144/99 03/27/2020 9:08 PM HISTOLOGY TECHNICIAN Pulse 116 03/27/2020 9:07 PM HISTOLOGY TECHNICIAN Temperature 36.9 C (98.4 F) 03/27/2020 9:07 PM HISTOLOGY TECHNICIAN Respiratory Rate 20 03/27/2020 9:07 PM HISTOLOGY TECHNICIAN Oxygen Saturation 95% 03/27/2020 9:09 PM HISTOLOGY TECHNICIAN Inhaled Oxygen Concentration - - Weight 97.5 kg (215 lb) 03/27/2020 9:07 PM HISTOLOGY TECHNICIAN Height 170.2 cm (5' 7 ) 03/27/2020 9:07 PM HISTOLOGY TECHNICIAN Body Mass Index 33.67 03/27/2020 9:07 PM HISTOLOGY TECHNICIAN Plan of Treatment Health Maintenance Due Date [...] patient's age to complete this topic Insurance [facility] Care Teams Lace Cutter Relationship Specialty Start Date End Date None, Provider, PCP - General 03/27/20
--- OUTSIDE RECORDS SUMMARY | 2024-06-15 08:03 | XMS_ITS | Patient Health Summary ---
Author Organization [facility] Address [address] [place] [address] Care Team Providers Care Louver Mortiser Operator Name Role Phone Ronn Miller MD Primary Care Provider Note from [facility],non-owned Affiliates and Associated Physician Practices is amultiple site organization consisting of ambulatory clinics and hospital sitesin [place], [place], [place] and [place]. This disclosure is being madepursuant to the Care Everywhere program and may not contain all information available regarding this patient. Last updated 18.[facility] Allergies No known active allergies Medications Be [...] Comments Blood Pressure 163/94 04/23/2020 4:16 PM DIRECTOR OF PERSONNEL Pulse 93 04/23/2020 4:16 PM DIRECTOR OF PERSONNEL Temperature 35.9 C (96.7 F) 04/23/2020 3:36 PM DIRECTOR OF PERSONNEL Respiratory Rate 13 04/23/2020 4:16 PM DIRECTOR OF PERSONNEL Oxygen Saturation 92% 04/23/2020 4:16 PM DIRECTOR OF PERSONNEL Inhaled Oxygen Concentration - - Weight 98.4 kg (217 lb) 10/02/2020 2:18 PM CDT Height 170.2 cm (5' 7 ) 10/02/2020 2:18 PM CDT Body Mass Index 33.99 10/02/2020 2:18 PM CDT Medical Devices Implanted Type Area Therapist Asst Device Identifier Shelf Expiration Date Model / Serial / Lot Lens Iol 0 D +21 Edi Mod L Acrsf Iq - [id number] Implanted:Qty: 1 on 04/23/2020 by Glen Mace MD at [facility] Left: Eye [employer] 11/22/2022 [id number] / [id number] / Band Rtnl 125x2x.75mm Susie Crc Implanted:Qty: 1 on 04/23/2020 by Glen Mace MD at [facility] Left: Eye [employer] 01/08/2024 92-01 / / Tire Rtnl 2.5mm Grv Cnvx Susie 7mm Sty 287 Implanted:Qty: 1 on 04/23/2020 by Glen Mace MD at [facility] Left: Eye [employer] 08/07/2024 92-17 / / [...] 09/16/2020 7:46 AM CDT Glen [facility]ace [facility] * LARYNGEAL MASK AIRWAY (04/23/2020 1:22 PM DIRECTOR OF PERSONNEL) Narrative Melva Veras APRN-EMPLOYEE RELATIONS MANAGER - 04/23/2020 1:22 PM DIRECTOR OF PERSONNEL Melva Veras APRN-CRNA 04/23/2020 3:30 PM LMA Placement Procedure/LDA Note: Patient Location: OR. LMA Insertion Date/Time: 04/23/2020 1:15 PM Procedure: LMA. Pretreatment: 100% O2 Induction: standard IV Patient position: sniffing. Mask Ventilation: not attempted Type: LMA Size: 4 Number of Attempts: 1. Placement verified by: direct visualization, bilateral breath sounds, chest auscultation and CO2 monitor Dentition unchanged? Yes Procedure Start Time: 04/23/2020 1:15 PM. Procedure End Time: 04/23/2020 3:30 PM. Procedure Total Time: 135.75 minutes. Staff Section Anesthesia Provider: Hayley Slaughter APRN-EMPLOYEE RELATIONS MANAGER, Performed the procedure Giorgio Hall MD GENERAL ANESTHESIA ORDERABLES * SARS-COV-2 (COVID-19) IN HOUSE (04/21/2020 11:30 AM DIRECTOR OF PERSONNEL) COVID-19 PCR Not detected Not detected 04/21/2020 7:25 PM DIRECTOR OF P[address]NEL [facility] Microbiology SPECIMEN FROM NASOPHARYNGEAL STRUCTURE / Unknown Collection / Unknown 04/21/2020 11:30 AM DIRECTOR OF PERSONNEL 04/21/2020 2:45 PM DIRECTOR OF PERSONNEL Narrative [facility] - 04/21/2020 7:25 PM DIRECTOR OF PERSONNEL This nucleic acid amplification assay performance was validated by [facility]. This test has been authorized by the Food and Drug administration (FDA)under an Emergency Use Authorization (EUA). This test has been validated [...] Mace MD LAB - MICRO BIOLOGY ORDERABLES [facility] [address] [place] [address], [facility] [phone] * IOL Master ([employer]) (04/17/2020 12:11 PM DIRECTOR OF PERSONNEL) Anatomical Region Laterality Modality Other 04/17/2020 12:1 1 PM DIRECTOR OF PERSONNEL Glen Mace MD [facility] ORDERABLES * OCT (04/17/2020 11:51 AM DIRECTOR OF PERSONNEL) Anatomical Region Laterality Modality Other 04/17/2020 11:5 1 AM DIRECTOR OF PERSONNEL Glen Mace MD [facility] ORDERABLES Care Teams Louver Mortiser Operator Relationship Specialty Start Date End Date Ronn Miller MD [address] [place] [address] PCP - General Family Medicine 04/02/20
--- OUTSIDE RECORDS SUMMARY | 2024-06-15 08:03 | XMS_ITS | Referral Summary ---
Author Organization [facility] Address [address] [place] [address] Care Team Providers Care Supervisor Shipping Room Name Role Phone Ronn Miller MD Primary Care Provider [phone] Source Comments [facility],non-[facility] Affiliates and Associated Physician Practices is amultiple site organization consisting of ambulatory clinics and hospital sitesin [place], [place], [place] and [place]. This disclosure is being madepursuant to the Care Everywhere program and may not contain all information available regarding this patient. Last updated 18.[facility] [employer] Allergies No known active allergies Medications Be [...] Comments Blood Pressure 163/94 04/23/2020 4:16 PM HOUSE STEWARD/STEWARDESS Pulse 93 04/23/2020 4:16 PM HOUSE STEWARD/STEWARDESS Temperature 35.9 C (96.7 F) 04/23/2020 3:36 PM HOUSE STEWARD/STEWARDESS Respiratory Rate 13 04/23/2020 4:16 PM HOUSE STEWARD/STEWARDESS Oxygen Saturation 92% 04/23/2020 4:16 PM HOUSE STEWARD/STEWARDESS Inhaled Oxygen Concentration - - Weight 98.4 [...] on file Medical Devices Implanted Type Area Family Member Caretaker Device Identifier Shelf Expiration Date Model / Serial / Lot Lens Iol 0 D +21 Edi Mod L Acrsf Iq - [id number] Implanted:Qty: 1 on 04/23/2020 by Glen Mace MD at [facility] Left: Eye Maykel [employer] 11/22/2022 [id number] / [id number] / Band Rtnl 125x2x.75mm Susie Crc Implanted:Qty: 1 on 04/23/2020 by Glen Mace MD at [facility] Left: Eye [employer] 01/08/2024 92-01 / / Tire Rtnl 2.5mm Grv Cnvx Susie 7mm Sty 287 Implanted:Qty: 1 on 04/23/2020 by Glen Mace MD at [facility] Left: Eye [employer] 08/07/2024 92-17 / / Care Teams Supervisor Shipping Room Relationship Specialty Start Date End Date Ronn Miller MD [address] [place] [id number] PCP - General Family Medicine 04/02/20
--- OUTSIDE RECORDS SUMMARY | 2024-06-15 08:03 | XMS_ITS | Clinical Summary ---
Author Organization [facility] [employer] Address [address] [place] [address] Care Team Providers Care Sheet Metal Welder Name Role Phone Ronn Miller MD Primary Care Provider [phone] Source Comments [facility] Affiliates and Associated Physician Practices is amultiple site organization consisting of ambulatory clinics and hospital sitesin [place], [place], [place]. This disclosure is being madepursuant to the Care Everywhere program and may not contain all information available regarding this patient. Last updated 18.[facility] [employer] Allergies No known active allergies Medications Be [...] Comments Blood Pressure 163/94 04/23/2020 4:16 PM SUPERVISOR ROSE GRADING Pulse 93 04/23/2020 4:16 PM SUPERVISOR ROSE GRADING Temperature 35.9 C (96.7 F) 04/23/2020 3:36 PM SUPERVISOR ROSE GRADING Respiratory Rate 13 04/23/2020 4:16 PM SUPERVISOR ROSE GRADING Oxygen Saturation 92% 04/23/2020 4:16 PM SUPERVISOR ROSE GRADING Inhaled Oxygen Concentration - - Weight 98.4 [...] this topic Medical Devices Implanted Type Area Lead Supply Worker Device Identifier Shelf Expiration Date Model / Serial / Lot Lens Iol 0 D +21 Edi Mod L Acrsf Iq - [id number] Implanted:Qty: 1 on 04/23/2020 by Glen Mace MD at [facility] Left: Eye Maykel [employer] 11/22/2022 [id number] / [id number] / Band Rtnl 125x2x.75mm Susie Crc Implanted:Qty: 1 on 04/23/2020 by Glen Mace MD at [facility] Left: Eye [employer] 01/08/2024 92-01 / / Tire Rtnl 2.5mm Grv Cnvx Susie 7mm Sty 287 Implanted:Qty: 1 on 04/23/2020 by Glen Mace MD at [facility] Left: Eye [employer] 08/07/2024 92-17 / / Care Teams Sheet Metal Welder Relationship Specialty Start Date End Date Ronn Miller MD [address] [place] [address] PCP - General Family Medicine 04/02/20
--- OUTSIDE RECORDS SUMMARY | 2024-06-15 08:03 | XMS_ITS | Clinical Summary ---
Author Organization [address] Address [address] [place] [address] Care Team Providers Care Loan Teller Name Role Phone No, Physician Primary Care Provider [phone] Allergies No known active allergies Medications HYDROcodone-acet aminophen (NORCO) 5-325 mg per tabletIndication s:Pain Take 1 tablet by mouth every 4 (four) hours as needed for pain 12 tablet 09/29/2020 Active Active Problems No known active problems Surgical History Surgery Date Site/Laterality Comments RETINAL DETACHMENT SURGERY BACK SURGERY Medical History Medical History Date Comments Detached retina Social History Tobacco Use Types Packs/Day Years Used Date Smoking Tobacco: Never Personal Safety Answer Date Recorded Getting School Help Needed Not on file 07/04 Sex and Gender Information Value Date Recorded Sex Assigned at Not on file Legal Sex Male 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 Gender Identity Not on file Sexual Orientation Not on file Obstetrics History Last Filed Vital Signs Vital Sign Reading Time Taken Comments Blood Pressure 151/96 09/29/2020 2:26 PM CDT Pulse 108 09/29/2020 2:24 PM CDT Temperature 37.3 C (99.1 F) 09/29/2020 2:24 PM CDT Respiratory Rate 16 09/29/2020 2:24 PM CDT Oxygen Saturation 97% 09/29/2020 2:24 PM CDT Inhaled Oxygen Concentration - - Weight 94.3 kg (208 lb) 09/29/2020 2:24 PM CDT Height 170.2 cm (5' 7 ) 09/29/2020 2:24 PM CDT Body Mass Index 32.58 09/29/2020 2:24 PM CDT Plan of Treatment Not on file Insurance [facility] Care Teams Loan Teller Relationship Specialty Start Date End Date No, Physician PCP - General 09/29/20
--- OUTSIDE RECORDS SUMMARY | 2024-06-15 08:03 | XMS_ITS | Referral Summary ---
Author Organization [address] Address [address] [place] [address] Care Team Providers Care Supervisor Burling And Joining Name Role Phone No, Physician Primary Care Provider [phone] Allergies No known active allergies Medications HYDROcodone-acet aminophen (NORCO) 5-325 mg per tabletIndication s:Pain Take 1 tablet by mouth every 4 (four) hours as needed for pain 12 tablet 09/29/2020 Active Active Problems No known active problems Social History Tobacco Use Types Packs/Day Years Used Date Smoking Tobacco: Never Personal Safety Answer Date Recorded Getting School Help Needed Not on file 07/04 Sex and Gender Information Value Date Recorded Sex Assigned at Not on file Legal Sex Male 1:30 PM INGOT BUGGY OPERATOR Gender Identity Not on file Sexual Orientation [...] Plan of Treatment Not on file Insurance [facility] Care Teams Supervisor Burling And Joining Relationship Specialty Start Date End Date No, Physician PCP - General 09/29/20
--- NOTE | 2024-07-10 09:54 | WPDSLEEPSTUD ---
Sleep Study Date of Study: 06/15/24 Ordering Provider: Tory Alexis MD Interpreting Physician: Analisa Bautista DO Sleep Study Type: Polysomnogram Height: 1.7 m Weight: 90.718 kg Body Mass Index: 31.3 Neck Circumference (inches): 18 Buckner: 1 Reason for Sleep Study ApneaLink while hospitalized showed elevated AHI. Patient was set up with CPAP at discharge. Sleep History The patient is a 68-year-old male that had a sleep study ordered by the pulmonary group for evaluation of sleep apnea. The patient denies awakening from sleep short of breath. He denies awakening at night with heartburn, belching or cough. He frequently snores and is frequently loud enough that others complain. He occasionally has trouble sleeping when he has a cold. He denies waking up gasping for air throughout the night. He denies having breathing problems at night observed by himself or others. He denies sweating excessively at night. He denies falling asleep during the day and while driving. He denies sleep paralysis, cataplexy and hypnagogic/ hypnopompic hallucinations. He denies having trouble at school or work due to sleepiness. He denies feeling afraid of going to sleep. He denies having nightmares. He rarely remembers his dreams. He rarely has thoughts racing through his mind. He denies feeling sad, depressed or anxious. He denies having muscular tension. He denies noticing parts of his body jerk. He denies kicking during the night. He denies having crawling and aching feelings in his legs and denies having leg pain during the night. He denies grinding his teeth during sleep and denies awakening with morning jaw pain. He denies being bothered by pain during the day and denies being awakened by pain during the night. He denies waking up feeling stiff in morning. He denies waking up with sore or achy muscles. He denies waking up with pain in the neck, spine and other joints. He goes to bed at 10:30 p.m. on weekdays and at midnight on the weekends. It takes him 15 minutes to fall asleep. He wakes up 1-2 times throughout the night to urinate and is able to fall back asleep within 5 minutes. He wakes up between 7-8 a.m. on weekdays and 8:00 a.m. on the weekends. He typically gets 9 hours of sleep per night. He does not stay in bed after waking up in morning. He currently lives alone. He will have 1 cup of tea within 2 hours of bedtime. He denies engaging in physical exercise before bedtime. He will read and watch television before falling asleep. He denies taking naps in afternoon or the evening. He denies consuming any caffeinated beverages throughout the day. He denies tobacco, alcohol and recreational drug use. 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 He is single and has never been . He does not have children. He and his brother live in the same farm house that they were raised in. He has a medium-sized dog at home. Code status: Full code (he would not want to be on long-term ventilator support) Surrogate decision maker: Josh Morales (brother) Smoking status: Never smoker Alcohol intake: current Drinks per week: 5 Substance use: never Substance use type: does not use Do You Feel Safe in your Home?: Yes Lack of Transportation: No Lack of Food: Never True Current Housing: I Have Housing Concerned About Future Housing: No Difficulty Paying Gas/Electric Bills: No Difficulty Paying for Meds: No Currently Unemployed: No Education: Decline to Answer Difficulty w/ Childcare or Family Care: No Living arrangements: alone Occupation/Education: occupation 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 Gender identity (if verbalized by the patient): Male Sexual Orientation (if Verbalized by the Patient): Straight or Heterosexual Spiritual care concerns: No Agree to blood products: Yes Medications Home Medications ?Medication ?Instructions ?Recorded ?Confirmed ?Type eszopiclone 2 mg tablet (Lunesta) 2 mg PO ONCE #1 tablet 05/24/24 05/24/24 Rx digoxin 125 mcg (0.125 mg) tablet 125 mcg PO QAM #30 tabs 06/08/24 Rx metoprolol tartrate 50 mg tablet 100 mg (2 x 50 mg) PO Q12HR #60 07/09/24 Rx tabs rivaroxaban 20 mg tablet (Xarelto) 20 mg PO DAILY #30 tabs 07/10/24 Rx Sleep Procedure A full night polysomnogram using the StudyTube multi-channel system recorded the standard physiologic parameters including EEG, EOG, submentalis EMG, anterior tibialis EMG, EKG, body position, nasal and oral airflow using nasal pressure sensor and thermistor.? Respiratory parameters of chest and abdominal movements were recorded with Respiratory Inductance Plethysmography belts. Oxygen saturation was recorded by pulse oximetry. Video monitoring was also performed. Sleep stages, periodic limb movements, and EEG arousals were scored in 30 second epochs according to the criteria of the AASM Scoring Manual. The Apnea-Hypopnea Index was calculated using [facility] guidelines for definition of hypopnea with 4% O2 desaturations while scoring respiratory events. Sleep Architecture The total recording time was 456.7 minutes.? The total sleep time was 350.5 minutes. Sleep latency was 18.9 minutes. REM latency was 125.5 minutes. Sleep efficiency was 76.7%. The patient had 44 awakenings for an awakening index of 7.5. Wake after sleep onset time was 87.5 minutes. The patient spent 73.0 minutes, 20.8% of total sleep time in Stage N1. The patient spent 251.0 minutes, 71.6% in Stage N2. The patient spent 5.0 minutes, 1.4% in Stage N3. The patient spent 21.5 minutes, 6.1% in Stage REM sleep. Respiratory Analysis The patient had 41 hypopneas and 36 obstructive apneas for an overall Apnea Hypopnea Index of 13.0. The REM Apnea Hypopnea Index was 55.8. The NREM Apnea Hypopnea Index was 10.2. The patient had a Central Apnea Hypopnea Index of 0. There was no evidence of Sandor-Lei Respirations. Arousals There were 241 total arousals for an arousal index of 41.3. There were 101 spontaneous arousals for an index of 17.3. There were 18 arousals due to respiratory events for an index of 3.1. There were 112 arousals due to periodic limb movements for an index of 19.2.? There were 12 arousals due to isolated limb movements for an index of 2.1. Periodic Limb Movements The patient had 38 isolated limb movements with an index of 6.5. The patient had 469 periodic limb movements with an index of 80.3, which is elevated (normal < 15). Patient had a total of 507 limb movements with a total limb movement index of 86.8. Oximetry Data The patient had an average oxygen saturation of 92.4% in sleep with a minimum oxygen saturation of 80.0% and a maximum oxygen saturation of 98.0%. The patient had 57 oxygen desaturations that were 4% or greater resulting in an Oxygen Desaturation Index of 9.8.? The patient spent 11.7 minutes, 2.6 of total sleep time with an oxygen saturation below 88%. Snoring Profile Mild to moderate snoring was present during the study. Cardiac Profile The EKG showed atrial fibrillation with occasional PVCs. The patient had an average pulse rate of 66.4 bpm with a minimum pulse of rate of 38.0 bpm and a maximum pulse rate of 99.0 bpm.? EEG Profile No signs of seizure activity seen. Assessment and Plan Assessment and Plan (1) Obstructive sleep apnea: Code(s): G47.33 - Obstructive sleep apnea (adult) (pediatric) Status: Acute Assessment and Plan: The patient had an overall AHI of 13.0 with desaturation down to 80%. This is consistent with mild sleep apnea. Due to the patient's atrial fibrillation, he qualifies for treatment. I recommend that the patient be prescribed Resmed AutoPAP 5-15 cm H2O, CPAP mask/filters/tubing and heated humidity. A mandibular advancement device is also an acceptable treatment option. This should be used with all episodes of sleep.? Compliance should be reviewed within 31-90 days of starting therapy for usage greater than 4 hours per night greater than 70% of the nights. The patient should be asked about symptoms such as?excessive daytime sleepiness, quality of sleep, decreased nocturia, increased?mental functioning such as memory, mood, and concentration. (2) PLMD (periodic limb movement disorder): Code(s): G47.61 - Periodic limb movement disorder Status: Acute Assessment and Plan: The patient had a significant number of limb movements during the study with the majority being periodic in nature. Approximately 25% of the periodic leg movements caused arousals in the patient's sleep. The patient's sleep history does not suggest Restless Leg Syndrome. I recommend that the patient have a serum ferritin drawn for evaluation of iron deficiency anemia. If the patient has a serum ferritin less than 75 ng/mL, I recommend starting a daily iron supplement and a Vitamin C supplement for better absorption. If the serum ferritin is greater than 75 ng/mL, I recommend starting a dopamine agonist and titrating the dose until symptoms resolve. There are nonpharmacological methods to treat limb movements including daily exercise, stretching calf muscles before bed, avoiding excessive amounts of caffeine and alcohol, vitamin B supplementation, magnesium lotion massaged into legs before bed, and use of a weighted blanket. Data The data obtained during this sleep study is adequate for interpretation. Certification This sleep study has been reviewed by a board certified sleep medicine physician.
[2024-07-10 12:45] VITALS: BMI 31.3
== END 2024-06-16 10:47 | disposition home or self-care (01) ==
LOC: ANHCSM 08:01
PROVIDERS: PCP Family Medicine; Visit Provider Internal Medicine Critical Care Medicine
DX: G47.33 Obstructive sleep apnea (adult) (pediatric) (principal); G47.61 Periodic limb movement disorder
CPT/HCPCS: 95810

== ENCOUNTER 2024-07-21 15:08 | Outpatient (CLI) | payer MEDICARE, SELFPAY ==
--- OUTSIDE RECORDS SUMMARY | 2024-07-21 15:12 | XMS_ITS | Patient Health Summary ---
Author Organization [facility] [employer] Address [address] [place] [address] Care Team Providers Care Service Delivery Consultant Name Role Phone Ronn Miller MD Primary Care Provider [phone] Note from [facility],non-owned Affiliates and Associated Physician Practices is amultiple site organization consisting of ambulatory clinics and hospital sitesin [place], [place], [place] and [place]. This disclosure is being madepursuant to the Care Everywhere program and may not contain all information available regarding this patient. Last updated 18.[facility] Allergies No known active allergies Medications Be [...] Comments Blood Pressure 163/94 04/23/2020 4:16 PM EMERGENCY GENERATOR MECHANIC Pulse 93 04/23/2020 4:16 PM EMERGENCY GENERATOR MECHANIC Temperature 35.9 C (96.7 F) 04/23/2020 3:36 PM EMERGENCY GENERATOR MECHANIC Respiratory Rate 13 04/23/2020 4:16 PM EMERGENCY GENERATOR MECHANIC Oxygen Saturation 92% 04/23/2020 4:16 PM EMERGENCY GENERATOR MECHANIC Inhaled Oxygen Concentration - - Weight 98.4 kg (217 lb) 10/02/2020 2:18 PM CDT Height 170.2 cm (5' 7 ) 10/02/2020 2:18 PM CDT Body Mass Index 33.99 10/02/2020 2:18 PM CDT Medical Devices Implanted Type Area Gas Meter Checker Device Identifier Shelf Expiration Date Model / Serial / Lot Lens Iol 0 D +21 Edi Mod L Acrsf Iq - [id number] Implanted:Qty: 1 on 04/23/2020 by Glen Mace MD at [facility] Left: Eye [employer]kel [employer] 11/22/2022 [id number] / [id number] / Band Rtnl 125x2x.75mm Susie Crc Implanted:Qty: 1 on 04/23/2020 by Glen Mace MD at [facility] Left: Eye [employer] 01/08/2024 92-01 / / Tire Rtnl 2.5mm Grv Cnvx Susie 7mm Sty 287 Implanted:Qty: 1 on 04/23/2020 by Glen Mace MD at [facility] Left: Eye [employer] 08/07/2024 92-17 / / [...] 09/16/2020 7:46 AM CDT [facility] * LARYNGEAL MASK AIRWAY (04/23/2020 1:22 PM EMERGENCY GENERATOR MECHANIC) Narrative Melva Veras APRN-EXECUTIVE DIRECTOR CONTRACT SHOP - 04/23/2020 1:22 PM EMERGENCY GENERATOR MECHANIC Melva Veras APRN-CRNA 04/23/2020 3:30 PM LMA [...] minutes. Staff Section Anesthesia Provider: Hayley Slaughter APRN-EXECUTIVE DIRECTOR CONTRACT SHOP, Performed the procedure Giorgio Hall MD GENERAL ANESTHESIA ORDERABLES * SARS-COV-2 (COVID-19) IN HOUSE (04/21/2020 11:30 AM EMERGENCY GENERATOR MECHANIC) COVID-19 PCR Not detected Not detected 04/21/2020 7:25 PM EMERGENCY GENERATOR MECHANIC [facility] Microbiology SPECIMEN FROM NASOPHARYNGEAL STRUCTURE / Unknown Collection / Unknown 04/21/2020 11:30 AM EMERGENCY GENERATOR MECHANIC 04/21/2020 2:45 PM EMERGENCY GENERATOR MECHANIC Narrative [facility] - 04/21/2020 7:25 PM EMERGENCY GENERATOR MECHANIC This nucleic acid amplification assay performance was validated by [facility]. This test has been [...] Mace MD LAB - MICRO BIOLOGY ORDERABLES [facility] [address] [place] [address], [facility] [phone] * IOL Master ([employer]) (04/17/2020 12:11 PM EMERGENCY GENERATOR MECHANIC) Anatomical Region Laterality Modality Other 04/17/2020 12:1 1 PM EMERGENCY GENERATOR MECHANIC Glen Mace MD [facility] ORDERABLES * OCT (04/17/2020 11:51 AM EMERGENCY GENERATOR MECHANIC) Anatomical Region Laterality Modality Other 04/17/2020 11:5 1 AM EMERGENCY GENERATOR MECHANIC Glen Mace MD [facility] ORDERABLES Care Teams Service Delivery Consultant Relationship Specialty Start Date End Date Ronn Miller MD [address] [place] [address] PCP - General Family Medicine 04/02/20
--- OUTSIDE RECORDS SUMMARY | 2024-07-21 15:12 | XMS_ITS | Clinical Summary ---
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
--- OUTSIDE RECORDS SUMMARY | 2024-07-21 15:12 | XMS_ITS | Clinical Summary ---
Author Organization [facility] [employer] Address [address] [place] [address] Care Team Providers Care Hack Saw Operator Name Role Phone Ronn Miller MD Primary Care Provider [phone] Source Comments [facility] [employer],[facility] Affiliates and Associated Physician Practices is amultiple site organization consisting of ambulatory clinics and hospital sitesin [place], [place], [place] and [place]. This disclosure is being madepursuant to the Care Everywhere program and may not contain all information available regarding this patient. Last updated 18.[facility] [employer] Allergies No known active allergies Medications Be [...] Comments Blood Pressure 163/94 04/23/2020 4:16 PM TOLL RELIEF OPERATOR Pulse 93 04/23/2020 4:16 PM TOLL RELIEF OPERATOR Temperature 35.9 C (96.7 F) 04/23/2020 3:36 PM TOLL RELIEF OPERATOR Respiratory Rate 13 04/23/2020 4:16 PM TOLL RELIEF OPERATOR Oxygen Saturation 92% 04/23/2020 4:16 PM TOLL RELIEF OPERATOR Inhaled Oxygen Concentration - - Weight 98.4 [...] to complete this topic MENINGOCOCCAL (Group B) VACC INE SHARED DECISION-MAKING Aged Out No longer eligibl e based on patient's age to complete this topic MENINGOCOCCAL GROUPS A/C/Y/W VACCINE Aged Out No longer eligible b ased on patient's age to complete this topic Medical Devices Implanted Type Area Director Of Public Safety Device Identifier Shelf Expiration Date Model / Serial / Lot Lens Iol 0 D +21 Edi Mod L Acrsf Iq - [id number] Implanted:Qty: 1 on 04/23/2020 by Glen Mace MD at [facility] Left: Eye [employer] 11/22/2022 [id number] / [id number] / Band Rtnl 125x2x.75mm Susie Crc Implanted:Qty: 1 on 04/23/2020 by Glen Mace MD at [facility] Left: Eye [employer] 01/08/2024 92-01 / / Tire Rtnl 2.5mm Grv Cnvx Susie 7mm Sty 287 Implanted:Qty: 1 on 04/23/2020 by Glen Mace MD at [facility] Left: Eye [employer] 08/07/2024 92-17 / / Care Teams Hack Saw Operator Relationship Specialty Start Date End Date Ronn Miller MD [address] [place] [address] PCP - General Family Medicine 04/02/20
--- OUTSIDE RECORDS SUMMARY | 2024-07-21 15:12 | XMS_ITS | Clinical Summary ---
Author Organization [facility] Address Formerly [facility] [place] [address] Care Team Providers Care Engraver Set Up Operator Name Role Phone None, Provider MD Primary [...] Comments Blood Pressure 144/99 03/27/2020 9:08 PM DIGITAL DIRECTOR Pulse 116 03/27/2020 9:07 PM DIGITAL DIRECTOR Temperature 36.9 C (98.4 F) 03/27/2020 9:07 PM DIGITAL DIRECTOR Respiratory Rate 20 03/27/2020 9:07 PM DIGITAL DIRECTOR Oxygen Saturation 95% 03/27/2020 9:09 PM DIGITAL DIRECTOR Inhaled Oxygen Concentration - - Weight 97.5 kg (215 lb) 03/27/2020 9:07 PM DIGITAL DIRECTOR Height 170.2 cm (5' 7 ) 03/27/2020 9:07 PM DIGITAL DIRECTOR Body Mass Index 33.67 03/27/2020 9:07 PM DIGITAL DIRECTOR Plan of Treatment Health Maintenance Due Date [...] patient's age to complete this topic Insurance [facility] Care Teams Engraver Set Up Operator Relationship Specialty Start Date End Date None, Provider, PCP - General 03/27/20
--- OUTSIDE RECORDS SUMMARY | 2024-07-21 15:12 | XMS_ITS | Continuity of Care Document ---
Author Organization [facility] Address [address] [address] [place] [address] Phone Care Team Providers Care Scene Shifter Name Role Phone Valentin Castellanos MD Unavailable Unavailable Allergies, Adverse Reactions, Alerts Substance Reaction Status Criticality No Known Allergies Active No Inform ation Procedures Procedure Date OFFICE/OUTPATIENT VISIT, [facility] Advance Directives Directive Yes / No Effective Date File Name No Information Encounters Encounter Description Practice Location Reason(s) For Visit Diagnoses Date Provider Providers Copied on Encounter OFFICE/OUTPAT IENT VISIT, [facility], [address] [place], [address], [place] tel:[phone] [facility] back pain1 (chief complaint) PneumoniaLumbago with sciatica, left side Emanuel Hanson. [address], [facility] [place], [address] , [place]. tel:[phone] Family History Family Member Type Diagnosis Age At Onset No Information Payers Payer name Insurance type Covered republican ID Authoriza tion(s) No Information Social History [...] Mental Status Date Cognitive Assessment Orientation - Rosie ed to time, place, person, situation.Normal Orientation
--- OUTSIDE RECORDS SUMMARY | 2024-07-21 15:12 | XMS_ITS | Referral Summary ---
Author Organization [facility] Address [address] [place] [address] Care Team Providers Care Fusing Machine Operator Name Role Phone Ronn Miller MD Primary Care Provider [phone] Source Comments [facility],non-[facility] Affiliates and Associated Physician Practices is amultiple site organization consisting of ambulatory clinics and hospital sitesin [place], [place], [place] and [place]. This disclosure is being madepursuant to the Care Everywhere program and may not contain all information available regarding this patient. Last updated 18.[facility] Re-APP Allergies No known active allergies Medications Be [...] Comments Blood Pressure 163/94 04/23/2020 4:16 PM OIL WELL SERVICES DISPATCHER Pulse 93 04/23/2020 4:16 PM OIL WELL SERVICES DISPATCHER Temperature 35.9 C (96.7 F) 04/23/2020 3:36 PM OIL WELL SERVICES DISPATCHER Respiratory Rate 13 04/23/2020 4:16 PM OIL WELL SERVICES DISPATCHER Oxygen Saturation 92% 04/23/2020 4:16 PM OIL WELL SERVICES DISPATCHER Inhaled Oxygen Concentration - - Weight 98.4 [...] on file Medical Devices Implanted Type Area Haul Truck Driver Device Identifier Shelf Expiration Date Model / Serial / Lot Lens Iol 0 D +21 Edi Mod L Acrsf Iq - [id number] Implanted:Qty: 1 on 04/23/2020 by Glen Mace MD at [facility] Left: Eye Maykel Xeko 11/22/2022 [id number] / [id number] / Band Rtnl 125x2x.75mm Susie Crc Implanted:Qty: 1 on 04/23/2020 by Glen Mace MD at [facility] Left: Eye S[employer] 01/08/2024 92-01 / / Tire Rtnl 2.5mm Grv Cnvx Susie 7mm Sty 287 Implanted:Qty: 1 on 04/23/2020 by Glen Mace MD at [facility] Left: Eye Sammarinese [employer] 08/07/2024 92-17 / / Care Teams Fusing Machine Operator Relationship Specialty Start Date End Date Ronn Miller MD [address] [place] [address] PCP - General Family Medicine 04/02/20
--- OUTSIDE RECORDS SUMMARY | 2024-07-21 15:12 | XMS_ITS | Referral Summary ---
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
== END 2024-07-21 15:09 | disposition home or self-care (01) ==
LOC: ANHLAB 15:10
PROVIDERS: PCP Family Medicine; Visit Provider Physician Assistant
DX: D64.9 Anemia, unspecified (principal)
CPT/HCPCS: 36415; 82728

== ENCOUNTER 2024-09-13 14:00 | Outpatient (CLI) | payer MEDICARE, SELFPAY ==
--- OUTSIDE RECORDS SUMMARY | 2024-09-13 14:14 | XMS_ITS | Referral Summary ---
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
--- OUTSIDE RECORDS SUMMARY | 2024-09-13 14:14 | XMS_ITS | Continuity of Care Document ---
Author Organization [facility] Address [address] [address] Phone Care Team Providers Care Yardage Control Operator Name Role Phone Valentin Castellanos MD Unavailable Unavailable Allergies, Adverse Reactions, Alerts Substance Reaction Status Criticality No Known Allergies Active No Inform ation Procedures Procedure Date OFFICE/OUTPATIENT VISIT, [facility] Advance Directives Directive Yes / No Effective Date File Name No Information Encounters Encounter Description Practice Location Reason(s) For Visit Diagnoses Date Provider Providers Copied on Encounter OFFICE/OUTPAT IENT VISIT, [facility], [address] [place], [address], [place] tel:[phone] [facility] back pain1 (chief complaint) PneumoniaLumbago with sciatica, left side Emanuel Hanson. [address], [facility] [place], [address] , [place]. tel:[phone] Family History Family Member Type Diagnosis Age [...] Mental Status Date Cognitive Assessment Orientation - [place] ed to time, place, person, situation.Normal Orientation
--- OUTSIDE RECORDS SUMMARY | 2024-09-13 14:14 | XMS_ITS | Clinical Summary ---
Author Organization [facility] [employer] Address [address] [place] [place] [address] Care Team Providers Care Marketing Services Manager Name Role Phone Ronn Miller MD Primary Care Provider [phone] Source Comments [facility] [employer],[facility] Affiliates and Associated Physician Practices is amultiple site organization consisting of ambulatory clinics and hospital sitesin [place], [place], [place] and [place]. This disclosure is being madepursuant to the Care Everywhere program and may not contain all information available regarding this patient. Last updated 18.[facility] [employer] Allergies No known active allergies Medications * Be aware that medications may not be up to date on this document. Alwaysverify current medications with the patient. No known medications Active Problems No known active problems Social History Tobacco Use Types Packs/Day Years Used Date Smoking Tobacco: Former Smokeless Tobacco: Former Alcohol Use Standard Drinks/Week Comments Not Currently 0 (1 standard drink = 0.6 oz pur e alcohol) Sex and Gender Information Value Date Recorded Sex Assigned at Not on file Legal Sex Male 9:48 AM CDT Gender Identity Not on file Sexual Orientation Not on file Last Filed Vital Signs Vital Sign Reading Time Taken Comments Blood Pressure 163/94 04/23/2020 4:16 PM VICTIMS ADVOCATE CLERK/SPECIALIST Pulse 93 04/23/2020 4:16 PM VICTIMS ADVOCATE CLERK/SPECIALIST Temperature 35.9 C (96.7 F) 04/23/2020 3:36 PM VICTIMS ADVOCATE CLERK/SPECIALIST Respiratory Rate 13 04/23/2020 4:16 PM VICTIMS ADVOCATE CLERK/SPECIALIST Oxygen Saturation 92% 04/23/2020 4:16 PM VICTIMS ADVOCATE CLERK/SPECIALIST Inhaled Oxygen Concentration - - Weight 98.4 [...] VACCINE (1 - 2023-2 5 season) 2024 DEPRESSION SCREENING 05/10/2024 INFLUENZA VACCINE (Season Ended) 2025 Respiratory Syncytial Virus (RSV) Vaccine Pt: or [...] this topic Medical Devices Implanted Type Area Geophysical Observer Device Identifier Shelf Expiration Date Model / Serial / Lot Lens Iol 0 D +21 Edi Mod L Acrsf Iq - [id number] Implanted:Qty: 1 on 04/23/2020 by Glen Mace MD at [facility] Left: Eye Maykel Whi 11/22/2022 [id number] / [id number] / Band Rtnl 125x2x.75mm Susie Crc Implanted:Qty: 1 on 04/23/2020 by Glen Mace MD at [facility] Left: Eye [employer] 01/08/2024 92-01 / / Tire Rtnl 2.5mm Grv Cnvx Susie 7mm Sty 287 Implanted:Qty: 1 on 04/23/2020 by Glen Mace MD at [facility] Left: Eye [employer] 08/07/2024 92-17 / / Insurance [employer] Care Teams Marketing Services Manager Relationship Specialty Start Date End Date Ronn Miller MD [address] [place] [address] PCP - General Family Medicine 04/02/20
--- OUTSIDE RECORDS SUMMARY | 2024-09-13 14:14 | XMS_ITS | Clinical Summary ---
Author Organization [facility] Address [address] [place] [address] Care Team Providers Care Steel Floor Pan Placing Supervisor Name Role Phone None, Provider Primary Care Provider Unavaila ble Allergies No [...] Comments Blood Pressure 144/99 03/27/2020 9:08 PM BLANKET WASHER Pulse 116 03/27/2020 9:07 PM BLANKET WASHER Temperature 36.9 C (98.4 F) 03/27/2020 9:07 PM BLANKET WASHER Respiratory Rate 20 03/27/2020 9:07 PM BLANKET WASHER Oxygen Saturation 95% 03/27/2020 9:09 PM BLANKET WASHER Inhaled Oxygen Concentration - - Weight 97.5 kg (215 lb) 03/27/2020 9:07 PM BLANKET WASHER Height 170.2 cm (5' 7 ) 03/27/2020 9:07 PM BLANKET WASHER Body Mass Index 33.67 03/27/2020 9:07 PM BLANKET WASHER Plan of Treatment Health Maintenance Due Date Last Done Comments Colorectal Cancer Screening Colonoscopy (10 Years) 1957 Hepatitis C 08/10/1975 DTaP, Tdap and Td Vaccines ( 1 - Tdap) 1976 Pneumococcal Vaccine: 50+ Ye ars (1 of 1 - PCV) 08/10/2007 Zoster Vaccines (1 of 2) 08/10/2007 COVID-19 Vaccine ( - 2023-2 5 season) 2024 RSV Immunization or 60+ Years (1 [...] patient's age to complete this topic Insurance [facility] Care Teams Steel Floor Pan Placing Supervisor Relationship Specialty Start Date End Date None, Provider, PCP - General 03/27/20
--- OUTSIDE RECORDS SUMMARY | 2024-09-13 14:14 | XMS_ITS | Clinical Summary ---
Author Organization [address] Address [address] [place] [address] Care Team Providers Care Survey Manager Name Role Phone No, Physician Primary Care Provider [phone] Allergies No known active allergies Medications HYDROcodone-acet [...] on file Legal Sex Male 1:30 PM AQUATICS SPECIALIST Gender Identity Not on file Sexual [...] Plan of Treatment Not on file Insurance [facility] Care Teams Survey Manager Relationship Specialty Start Date End Date No, Physician PCP - General 09/29/20
--- OUTSIDE RECORDS SUMMARY | 2024-09-13 14:14 | XMS_ITS | Data Portability ---
Author Organization [facility], Main Office Address [address] [place] [address] Care Team Providers Care Dock Or Pier Laborer Name Role Phone DORIS MCKEON Primary Care Provider Assessment No assessment recorded. Plan of Treatment [...] Recorded Time Impacted cerumen of bilateral ears [id number] 08 Active 2022 Stewart Calderon MD [address] [address], [place], [address] [facility] 12:13:23 Problem Notes None recorded. Medical Equipment [...] Address Organization Details Last Updated DateTime 08/03/2022 26885.42 g 98 [degF] 34.1 kg/m2 170.18 cm Areli Flores RN [facility] [employer] 08/03/2022 11:47:15 Social History Question Answer Notes LastModified by Organizat ion Details LastModified Time Tobacco Smoking Status Never Smoker Areli Flores RN null, [facility] 08/03/2022 11:57:55 What Is Your Level Of Alcohol Consumption? Occasional [email or web address] Information not available 08/03/2022 Sex: Unknown Functional Status None recorded. Mental Status None recorded. Family History Relationship Description Onset Age of this Age Resolved Age Notes LastModified by Organization Details LastModified Time Father Nasal polypectomy [email or web address] Not available 07/09 11:57:37 Medical History Condition Response MRSA N BACK INJECTIONS N ALLERGIES/HAYFEVER N LUNG DISEASE/DISORDER N INSOMNIA N HISTORY OF DRUG ABUSE N ESRD N RADIATION / CHEMOTHERAPY N COPD N HIGH CHOLESTEROL / HYPERLIPIDEMIA N HYPERTHYROIDISM N PVD N BLOOD DISEASES N EAR OR HEARING PROBLEMS N HYPOTHYROIDISM N SHINGLES N DEPRESSION (INCLUDING POST ) N BACK / NECK PROBLEMS N HAVE YOU BEEN HOSPITALIZED OR SEEN IN [facility] IN THE PAST YEAR ? N FAILED BACK SYNDROME N STROKE/TIA N POLYCYSTIC OVARIES N OBESITY N HISTORY WITH COMPLICATIONS WITH ANESTHES IA ? N ANEURYSM N Do you have Advance directive? N [...] SNOMED-CT Code Diagnosis ICD10 Code Diagnosis Note [id number] Stewart Calderon MD [facility] [place] [address] [place] [address] 08/03/2022 11:30:18 08/03/2022 12:15:03 Impacted cerumen of bilateral ears [id number] H61.23 Health Concerns Section Related Observation LastModified by Organization [facility] [facility] LastModified Time None Recorded Concern Status LastModified by Organization Details LastModified Time None Recorded Advance Directives Directive None Recorded Payers Encounter Date Sequence Insurance Name Policy Number Policy Lezama Covered Member ID Lezama Member ID Guarantor Name 08/03/2022 1 [facility] Savage [id number] Savage Morales Notes Date Note Type Note Provider Name and Address Organization Details Recorded Time 08/03/2022 text/html Patient reports tenderness hand recurrent cerumen impaction. Stewart Calderon MD [address] [place] [address], [place], [address], [place] - [facility] 08/03/2022 12:14:05
[2024-09-13 15:00] LABS: Basophils Percent Auto 0.4 % (0.2-1.2); Eosinophils Absolute Auto 0.2 K/mm3 (0-0.3); Eosinophils Percent Auto 2.6 % (0-4.4); Hematocrit 44.8 % (42.0-52.0); Immature Granulocyte Absolute 0.01 K/mm3 (0.00-0.031); Immature Granulocyte Percent A 0.1 % (0-0.5); Lymphocytes Absolute Auto 2.85 K/mm3 (0.9-3.2); Lymphocytes Percent Auto 39.3 % (18.3-44.2); Mean Corpuscular HGB Conc 33.5 g/dl (32-36); Mean Corpuscular Hemoglobin 31.8 pg (26-34); Mean Corpuscular Volume 95.1 fl (80-100); Monocytes Absolute Auto 0.6 K/mm3 (0.1-0.6); Monocytes Percent Auto 7.7 % (2.6-8.5); Neutrophils Absolute Auto 3.6 K/mm3 (1.3-6.7); Neutrophils Percent Auto 49.9 % (45.5-73.1); Platelet Count Result 191 k/mm3 (150-375); Red Blood Count 4.71 M/mm3 (4.6-6.20); Red Cell Distribution Width 12.6 % (11.5-14.5); White Blood Count 7.3 K/mm3 (4.5-10.0)
[2024-09-13 17:31] LABS: Alanine Aminotransferase 17 U/L (6-50); Albumin Level 4.4 g/dL (3.5-5.1); Alkaline Phosphatase 55 U/L (38-126); Anion Gap 7 mmol/L (4-12); Aspartate Amino Transferase 23 U/L (17-59); Bilirubin,Total 1.2 mg/dL (0.2-1.3); Blood Urea Nitrogen 20 mg/dL (9-20); Calcium 9.4 mg/dL (8.4-10.2); Carbon Dioxide 29 mmol/L (22-30); Chloride 104 mmol/L (98-107); Cholesterol 200 mg/dL (0-200); Estimated Glomerular Filt Rate > 60; Glucose 96 mg/dL (65-110); HDL Direct 45 mg/dL; Potassium 4.5 mmol/L (3.4-5.0); Sodium 140 mmol/L (137-145); Triglycerides 83 mg/dL (<150)
[2024-09-13 17:40] LABS: Free T4 Free Thyroxine 1.13 ng/dL (0.78-2.19)
[2024-09-13 17:42] LABS: LDL Cholesterol Direct 116 mg/dL
[2024-09-13 18:01] LABS: Prostate Specific Antigen 0.4 ng/mL (< OR = 4.0)
== END 2024-09-13 14:01 | disposition home or self-care (01) ==
LOC: ANHLAB 14:03
PROVIDERS: PCP Family Medicine; Visit Provider Student in an Organized Health Care Education/Training Program
DX: I48.91 Unspecified atrial fibrillation (principal); I10 Essential (primary) hypertension; D64.9 Anemia, unspecified; R53.83 Other fatigue; Z12.5 Encounter for screening for malignant neoplasm of prostate
CPT/HCPCS: 36415; 80053; 80061; 84153; 84439; 84443; 85025; G0103

== ENCOUNTER 2024-10-11 00:41 | Emergency (ER) | payer MEDICARE, SELFPAY ==
[2024-10-11] VITALS (7 sets, daily range): BP systolic 135–149; BP diastolic 86–99; PULSE 92–110; RESP 16–24; TEMP 36.6; O2SAT 95–100
--- NOTE | ~2024-10-11 | XR_ITS ---
Right wrist Technique: PA, oblique, lateral, and ulnar deviation views were obtained. Clinical History: Status post fall Findings: There is acute transverse fracture the distal radius with focal intra-articular extension. Fracture is nearly nondisplaced. No other definite fracture identified.. Joint spaces are preserved. Soft tissues are unremarkable. Impression: Acute fracture of the distal radius, as detailed above. Reviewed, dictated and finalized at location . Impression: Acute fracture of the distal radius, as detailed above.
--- NOTE | ~2024-10-11 | CT_ITS ---
Non-contrast Head CT History: Status post fall Technique: Axial non-contrast imaging of the brain was performed. Dose reduction technique was used on this scan by utilizing automated exposure control and iterative reconstruction technique. The dose -length product (DLP) was 756.67 mGy-cm. Findings: There is no evidence of intracranial hemorrhage, mass lesion, or acute infarct. Brain par enchyma appears normal. The ventricles and subarachnoid spaces are normal in size. The calvarium ap pears normal. The visualized paranasal sinuses and mastoid air cells are clear. Impression: No significant abnormality seen. Reviewed, dictated and finalized at location . Impression: No significant abnormality seen.
--- NOTE | ~2024-10-11 | CT_ITS ---
CT Facial Bones and Cervical Spine Clinical Indication: Status post fall Technique: Contiguous axial scans were obtained through the facial bones and cervical spine followed by coronal and sagittal reconstructions. Dose reduction technique was used on this scan by utilizing automated exposure control and iterative reconstruction technique. The dose-length product (DLP) was 425.75 mGy-cm. Findings: CT facial bones: No fractures are identified. The visualized paranasal sinuses are clear. Status post scleral banding of the left eye. No acute intraorbital abnormality seen. CT cervical spine: No acute fracture. 2 mm anterolisthesis of C4 over C5 present. There is severe deg enerative disc narrowing at C3-C4, C5-C6, and C6-C7. There is scattered facet joint degenerative cast ges throughout the cervical spine. There is mild left neural foraminal narrowing at C3-C4. There is m ild left neural foraminal narrowing at C4-C5. There is bilateral neural foraminal narrowing at C5-C6 and C6-C7. No prevertebral soft tissue swelling. Impression: No fracture is seen in the facial bones. No fracture of the cervical spine. 2 mm anterolisthesis of C4 over C5. Degenerative spondylosis, as above. Reviewed, dictated and finalized at location M. Impression: No fracture is seen in the facial bones. No fracture of the cervical spine. 2 mm anterolisthesis of C4 over C5. Degenerative spondylosis, as above.
--- OUTSIDE RECORDS SUMMARY | 2024-10-11 00:43 | XMS_ITS | Data Portability ---
Author Organization [facility], Main Office Address [address] [place] [address] Care Team Providers Care Splunk Consultant Name Role Phone DORIS MCKEON Primary Care Provider [phone] Assessment No assessment recorded. Plan of Treatment [...] Recorded Time Impacted cerumen of bilateral ears [id number] 08 Active 2022 Stewart Calderon MD [address] [address], [place], [address] [facility] 12:13:23 Problem Notes None recorded. Medical Equipment [...] Address Organization Details Last Updated DateTime 08/03/2022 83392.42 g 98 [degF] 34.1 kg/m2 170.18 cm Areli Flores RN [facility] 08/03/2022 11:47:15 Social History None recorded. Functional Status Question Answer Note LastModified by Organizat ion Details LastModified Time What is your level of alcohol consumption? Occasional [email or web address] Information not available 08/03/2022 Mental Status None recorded. Family History Relationship [...] HAVE YOU BEEN HOSPITALIZED OR SEEN IN [facility] IN THE PAST YEAR [...] SNOMED-CT Code Diagnosis ICD10 Code Diagnosis Note [id number] Stewart Caldreon MD [facility] [place] [address] [place] [address] 08/03/2022 11:30:18 08/03/2022 12:15:03 Impacted cerumen of bilateral ears [id number] H61.23 Health Concerns Section Related Observation LastModified by Organization [facility] [facility] LastModified Time None Recorded Concern Status LastModified by Organization Details LastModified Time None Recorded Advance Directives Directive None Recorded Payers Encounter Date Sequence Insurance Name Policy Number Policy Lezama Covered Member ID Lezama Member ID Guarantor Name 08/03/2022 1 [facility] Savage Morales [id number] Savage Morales Notes Date Note Type Note Provider Name and Address Organization Details Recorded Time 08/03/2022 text/html Patient reports tenderness hand recurrent cerumen impaction. Stewart Calderon MD [address] [facility] [address], [place], [address], [facility] 08/03/2022 12:14:05
--- OUTSIDE RECORDS SUMMARY | 2024-10-11 00:43 | XMS_ITS | Clinical Summary ---
Author Organization [facility] Address [address] [place] [address] Care Team Providers Care Lactation Nurse Name Role Phone Ronn Miller MD Primary Care Provider [phone] Source Comments [facility],non-[facility] Affiliates and Associated Physician Practices is amultiple site organization consisting of ambulatory clinics and hospital sitesin [place], [place], [place] and [place]. This disclosure is being madepursuant to the Care Everywhere program and may not contain all information available regarding this patient. Last updated 18.[facility] Allergies No known active allergies Medications * [...] Comments Blood Pressure 163/94 04/23/2020 4:16 PM UPSCALE SECURITY OFFICER Pulse 93 04/23/2020 4:16 PM UPSCALE SECURITY OFFICER Temperature 35.9 C (96.7 F) 04/23/2020 3:36 PM UPSCALE SECURITY OFFICER Respiratory Rate 13 04/23/2020 4:16 PM UPSCALE SECURITY OFFICER Oxygen Saturation 92% 04/23/2020 4:16 PM UPSCALE SECURITY OFFICER Inhaled Oxygen Concentration - - Weight 98.4 kg (217 lb) 10/02/2020 2:18 PM CDT Height 170.2 cm (5' 7) 10/02/2020 2:18 PM CDT Body Mass Index [...] this topic Medical Devices Implanted Type Area Pharmacy Benefits Coordinator Device Identifier Shelf Expiration Date Model / Serial / Lot Lens Iol 0 D +21 Edi Mod L Acrsf Iq - [id number] Implanted:Qty: 1 on 04/23/2020 by Glen Mace MD at [facility] Left: Eye Maykel [employer] 11/22/2022 [id number] / [id number] / Band Rtnl 125x2x.75mm Susie Crc Implanted:Qty: 1 on 04/23/2020 by Glen Mace MD at [facility] Left: Eye [employer]eg[employer]e [employer] 01/08/2024 92-01 / / Tire Rtnl 2.5mm Grv Cnvx Susie 7mm Sty 287 Implanted:Qty: 1 on 04/23/2020 by Glen Mace MD at [facility] Left: Eye [employer]eg[employer]e [employer] 08/07/2024 92-17 / / Insurance [employer]TER Care Teams Lactation Nurse Relationship Specialty Start Date End Date Ronn Miller MD [address] [place] [address] PCP - General Family Medicine 04/02/20
--- OUTSIDE RECORDS SUMMARY | 2024-10-11 00:43 | XMS_ITS | Clinical Summary ---
Author Organization [address] Address [address] [place] [address] Care Team Providers Care Wastewater Plant Civil Engineer Name Role Phone No, Physician Primary Care Provider [phone] Allergies No known active allergies Medications HYDROcodone-acet [...] on file Legal Sex Male 1:30 PM ARMATURE REWINDER Gender Identity Not on file Sexual Orientation [...] 2:24 PM CDT Height 170.2 cm (5' 7) 09/29/2020 2:24 PM CDT Body Mass Index 32.58 09/29/2020 2:24 PM CDT Plan of Treatment Not on file Insurance [facility] Care Teams Wastewater Plant Civil Engineer Relationship Specialty Start Date End Date No, Physician PCP - General 09/29/20
--- OUTSIDE RECORDS SUMMARY | 2024-10-11 00:43 | XMS_ITS | Referral Summary ---
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
--- OUTSIDE RECORDS SUMMARY | 2024-10-11 00:43 | XMS_ITS | Continuity of Care Document ---
Author Organization [facility] Address [address] [place] [address] [place] [address] Phone Care Team Providers Care Adventure Guide Name Role Phone Valentin Castellanos MD Unavailable Unavailable Allergies, Adverse Reactions, Alerts Substance Reaction Status Criticality No Known Allergies Active No Inform ation Procedures Procedure Date OFFICE/OUTPATIENT VISIT, [facility] Advance Directives Directive Yes / No Effective Date File Name No Information Encounters Encounter Description Practice Location Reason(s) For Visit Diagnoses Date Provider Providers Copied on Encounter OFFICE/OUTPAT IENT VISIT, [facility], [address], [address], [place] tel:[phone] [facility] back pain1 (chief complaint) PneumoniaLumbago with sciatica, left side Emanuel Hanson. [address], [facility] [place], [address] , [place]. tel:[phone] Family History Family Member Type Diagnosis [...] Mental Status Date Cognitive Assessment Orientation - [place] ed to time, place, person, situation.Normal Orientation
--- NOTE | 2024-10-11 04:52 | ED.UPPEXIN ---
HPI - Extremity Injury (Upper) General Chief Complaint: Extremity Injury, Upper Stated Complaint: right wrist injury Time Seen by Provider: 10/11/24 04:32 Source: patient Mode of arrival: ambulatory Limitations: no limitations History of Present Illness HPI narrative: Dxgiu-cklf-xrvydtjy male presents with right wrist injury after tripping and falling over a piece of ribbed/corrugated tin that was sticking up. He scraped his right cheek. On anticoagulation for history of afib. No loss of consciousness. No vision changes. Has not taken anything for pain. He is grateful because they had just finished planting all of the [place]. Related Data Allergies Allergy/AdvReac Type Severity Reaction Status Date / Time No Known Allergies Allergy Mild Verified 09/04/24 11:18 COUNTS INCLUDE 234 BEDS AT THE [facility] Past Medical History Medical History Chronic anticoagulation Atrial fibrillation Detached retina, right 2019 Obesity (BMI 30.0-34.9) Fracture of left distal radius September 2020 Skin neoplasm Surgical History Surgical History H/O detached retina repair multiple surgeries History of spinal fusion Family History Family History Mother Aneurysm Breast cancer Father , At age 85 Colon cancer Social History Social History Social History: He is a [place]. He is single and has never been . He does not have children. He and his brother live in the same farm house that they were raised in. He has a medium-sized dog at home. Code status: Full code (he would not want to be on long-term ventilator support) Surrogate decision maker: Josh Morales (brother) Smoking status: Never smoker Alcohol intake: current Drinks per week: 5 Substance use: never Substance use type: does not use Do You Feel Safe in your Home?: Yes Lack of Transportation: No Lack of Food: Never True Current Housing: I Have Housing Concerned About Future Housing: No Difficulty Paying Gas/Electric Bills: No Difficulty Paying for Meds: No Currently Unemployed: No Education: Decline to Answer Difficulty w/ Childcare or Family Care: No Living arrangements: alone Occupation/Education: occupation 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 Gender identity (if verbalized by the patient): Male Sexual Orientation (if Verbalized by the Patient): Straight or Heterosexual Spiritual care concerns: No Agree to blood products: Yes Exam Narrative: GENERAL: Well-appearing, well-nourished, and in no acute distress. HEAD: Erythema and edema right cheek. EYES: Non icteric; right eye chemosis ENT: Nares clear, no rhinorrhea or epistaxis. Gross auditory acuity intact. NECK: Supple. No meningismus. CHEST: Speaking in full sentences. No respiratory distress. HEART: Regular rate and rhythm. Brisk capillary refill in digits. Strong radial pulse R . ABDOMEN: Soft, nondistended. EXTREMITIES: Swelling around right wrist. SKIN: Warm, dry. Ecchymosis palmar aspect of distal right forearm. NEURO: No focal deficits. Alert and oriented. Answering questions. Following commands. Normal speech without aphasia or dysarthria. Sensation intact throughout. PSYCH: Congruent mood and affect. Loquacious. Course Vital Signs Vital signs: Vital Signs Temperature 97.9 F 10/11/24 00:42 Pulse Rate 108 H 10/11/24 00:42 Respiratory Rate 16 10/11/24 00:42 Blood Pressure 137/86 10/11/24 00:42 Pulse Oximetry 100 10/11/24 00:42 Oxygen Delivery Room Air 10/11/24 00:42 Temperature 98 F 10/11/24 07:12 Pulse Rate 93 10/11/24 07:12 Respiratory Rate 17 10/11/24 07:12 Blood Pressure 144/99 H 10/11/24 07:12 Pulse Oximetry 97 10/11/24 07:12 Oxygen Delivery Room Air 10/11/24 00:42 MDM - Extremity Injury (Upper) [facility] Narrative Medical decision making narrative: Exceedingly pleasant 69 yo right hand dominant male presents with right wrist injury after he fell. In the emergency department he is afebrile with vital signs notable for tachycardia. Patient provided analgesic medication. Fracture splinted and I did confirm he remains neurovascularly intact afterwards (able to move fingers which are warm and well perfused). Provided Rx for acetaminophen and, for breatkthrough pain, opiate medication though patient states he is not likely to fill it. Advised follow up with orthopedic surgery. Differential Diagnosis Differential diagnosis: Likely fracture of wrist, Colles' fracture and other (intracranial hemorrhage; facial bone fracture) Imaging Data Attestation: I personally reviewed and interpreted this imaging study as follows: My impression: Fracture on my independent interpretation - cortical irregularity but without signficant malalignment Radiologist's impression: CT C spine Stat Rad: No acute C-spine finding. CT facial: No acute fracture. Facial contusion CT Head: No acute intracranial finding. Left globe operative findings. Impression: Acute fracture of the distal radius, as detailed above. Discharge Plan Discharge Clinical Impression: Fall, Anterolisthesis of cervical spine, Abrasion of face, Distal radius fracture, right Patient Disposition: Home Condition: Stable Instructions: Antibiotic Form, Wrist Fracture in Adults (ED), Narcotic Safety (ED), Abrasion (ED), Fall Prevention (ED) Additional Instructions: It is safe to take 4000 mg per day of acetaminophen/Tylenol. For breakthrough pain, narcotic/opiate medication has been prescribed. Follow-up with the orthopedic surgeon below. Call their office to see when they would like to schedule your follow-up appointment. Return to the emergency department with any new or worsening symptoms. Patient Language: Turkmen Prescriptions: New acetaminophen 500 mg capsule 1,000 mg PO Q6H PRN (Reason: pain) Qty: 30 0RF oxycodone 5 mg tablet 5 mg PO Q8H PRN (Reason: pain) Qty: 14 0RF No Action metoprolol tartrate 50 mg tablet 100 mg PO Q12HR Qty: 60 5RF Xarelto 20 mg tablet 20 mg PO DAILY Qty: 30 6RF Rx Instructions: must administer with evening meal digoxin 125 mcg (0.125 mg) tablet 125 mcg PO QAM Qty: 30 4RF Follow-up/Referrals: Arin Ramírez MD [Primary Care Provider] - Ramón Caldera MD [Physician] - Stand Alone Forms: Work/School Release IP Time of Disposition: 06:27
--- OUTSIDE RECORDS SUMMARY | 2024-10-11 05:04 | XMS_ITS | Clinical Summary ---
Author Organization [facility] [employer] Address [address] [place] [address] Care Team Providers Care Saloon Keeper Name Role Phone Ronn Miller MD Primary Care Provider Source Comments [facility] [employer],non-[facility] Affiliates and Associated Physician Practices is amultiple site organization consisting of ambulatory clinics and hospital sitesin [place], [place], [place] and [place]. This disclosure is being madepursuant to the Care Everywhere program and may not contain all information available regarding this patient. Last updated 18.[facility] [employer] Allergies No known active allergies Medications * [...] Comments Blood Pressure 163/94 04/23/2020 4:16 PM CLAIMS COORDINATOR Pulse 93 04/23/2020 4:16 PM CLAIMS COORDINATOR Temperature 35.9 C (96.7 F) 04/23/2020 3:36 PM CLAIMS COORDINATOR Respiratory Rate 13 04/23/2020 4:16 PM CLAIMS COORDINATOR Oxygen Saturation 92% 04/23/2020 4:16 PM CLAIMS COORDINATOR Inhaled Oxygen Concentration - - Weight 98.4 [...] this topic Medical Devices Implanted Type Area Cap Sizer Device Identifier Shelf Expiration Date Model / Serial / Lot Lens Iol 0 D +21 Edi Mod L Acrsf Iq - [id number] Implanted:Qty: 1 on 04/23/2020 by Glen Mace MD at [facility] Left: Eye [employer] 11/22/2022 [id number] / [id number] / Band Rtnl 125x2x.75mm Susie Crc Implanted:Qty: 1 on 04/23/2020 by Glen Mace MD at [facility] Left: Eye [employer] 01/08/2024 92-01 / / Tire Rtnl 2.5mm Grv Cnvx Susie 7mm Sty 287 Implanted:Qty: 1 on 04/23/2020 by Glen Mace MD at [facility] Left: Eye [employer] 08/07/2024 92-17 / / Insurance [employer] Care Teams Saloon Keeper Relationship Specialty Start Date End Date Ronn Miller MD [address] [place] [address] PCP - General Family Medicine 04/02/20
--- OUTSIDE RECORDS SUMMARY | 2024-10-11 05:04 | XMS_ITS | Continuity of Care Document ---
Author Organization [facility] Address [address] [place] [address] [place] [address] Phone Care Team Providers Care Jewel Inspector Name Role Phone Valentin Castellanos MD Unavailable Unavailable Allergies, Adverse Reactions, Alerts Substance Reaction Status Criticality No Known Allergies Active No Inform ation Procedures Procedure Date OFFICE/OUTPATIENT VISIT, [facility] Advance Directives Directive Yes / No Effective Date File Name No Information Encounters Encounter Description Practice Location Reason(s) For Visit Diagnoses Date Provider Providers Copied on Encounter OFFICE/OUTPAT IENT VISIT, [facility], [place], [address] [place], [id number], [place] tel:[phone] [facility] back pain1 (chief complaint) PneumoniaLumbago with sciatica, left side Emanuel Hanson. [address], [facility] [place], [id number] , [place]. tel:[phone] Family History Family Member Type Diagnosis Age At Onset No Information Payers Payer name Insurance type Covered alliance party ID Authoriza tion(s) No Information Social [...] Mental Status Date Cognitive Assessment Orientation - [place] ed to time, place, person, situation.Normal Orientation
--- OUTSIDE RECORDS SUMMARY | 2024-10-11 05:04 | XMS_ITS | Clinical Summary ---
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
--- OUTSIDE RECORDS SUMMARY | 2024-10-11 05:04 | XMS_ITS | Referral Summary ---
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
[2024-10-11] MEDS: HYDROcodone/acetaminophen (*CRX) 5-325 MG TABLET 1 TAB PO (05:59)
--- NOTE | 2024-10-19 19:14 | PC.NURSE ---
LATE ENTRY This note is being entered to document information to the patient's record. The following information was omitted on [10/19/24], by [Sophia Meredith]. Short arm fiiberglass splint applied to R arm on 10/11/24.
== END 2024-10-11 07:13 | disposition home or self-care (01) ==
PROVIDERS: Emergency Provider Student in an Organized Health Care Education/Training Program; PCP Family Medicine
DX: S52.571A Other intraarticular fracture of lower end of right radius, initial encounter for closed fracture (principal); S00.81XA Abrasion of other part of head, initial encounter; M43.12 Spondylolisthesis, cervical region; I48.91 Unspecified atrial fibrillation; E66.9 Obesity, unspecified; Z68.32 Body mass index [BMI] 32.0-32.9, adult; Z98.1 Arthrodesis status; Z85.828 Personal history of other malignant neoplasm of skin; M47.812 Spondylosis without myelopathy or radiculopathy, cervical region; W18.09XA Striking against other object with subsequent fall, initial encounter
CPT/HCPCS: 29125; 70450; 70486; 72125; 73110; 99284; A9270

== ENCOUNTER 2024-11-08 09:19 | Outpatient (CLI) | payer MEDICARE, SELFPAY ==
--- NOTE | ~2024-11-08 | NM_ITS ---
EXAMINATION: NM bryon stress w perfusion DATE: 11/08/2024 13:14 INDICATION: Atrial fibrillation TECHNIQUE: Rest images were obtained following intravenous administration of 10 mCi Tc99m tetrofosmin (Myoview). The patient was infused intravenously with Lexiscan (Regadenoson). Then, 31.8 mCi Tc99m t etrofosmin (Myoview) was administered intravenously, and stress images were obtained. Data was recons tructed into short axis and horizontal and vertical long axis SPECT images. Gated SPECT images were a lso obtained. COMPARISON: None. FINDINGS: Mild nonreversible perfusion defect consistent with infarct involving the apical lateral, m id anterolateral, mid inferolateral and basilar anterolateral segments. No reversible ischemia. Ther e is normal left ventricular chamber size, wall motion and ejection fraction. Left ventricular eject ion fraction measures 59%. IMPRESSION: 1. Mild nonreversible infarct involving the apical lateral, mid anterolateral, mid inferolateral and basilar anterolateral segments. No reversible ischemia. 2. Left ventricular ejection fraction measuring 59%. Reviewed, dictated and finalized at location A.
--- OUTSIDE RECORDS SUMMARY | 2024-11-08 09:32 | XMS_ITS | Continuity of Care Document ---
Author Organization [facility] Address [address] [place] [address] [place] [address] Phone Care Team Providers Care Drivability Technician Name Role Phone Valentin Castellanos MD Unavailable Unavailable Allergies, Adverse Reactions, Alerts Substance Reaction Status Criticality No Known Allergies Active No Inform ation Procedures Procedure Date OFFICE/OUTPATIENT VISIT, [facility] Advance Directives Directive Yes / No Effective Date File Name No Information Encounters Encounter Description Practice Location Reason(s) For Visit Diagnoses Date Provider Providers Copied on Encounter OFFICE/OUTPAT IENT VISIT, [facility], [address] [place], [place], [id number], [place] tel:[phone] [facility] back pain1 (chief complaint) PneumoniaLumbago with sciatica, left side Emanuel Hanson. [address], [facility] [place], [id number] , [place]. tel:[phone] Family History Family Member Type Diagnosis Age At Onset No Information Payers Payer name Insurance type Covered constitution party ID Authoriza tion(s) No Information Social [...] Mental Status Date Cognitive Assessment Orientation - [place] ed to time, place, person, situation.Normal Orientation
--- OUTSIDE RECORDS SUMMARY | 2024-11-08 09:32 | XMS_ITS | Data Portability ---
Author Organization [employer], Main Office Address [address] [place] [address] Care Team Providers Care Traffic Personnel Supervisor Name Role Phone DORIS MCKEON Primary Care [...] Recorded Time Impacted cerumen of bilateral ears [id number] 08 Active 2022 Stewart Calderon MD [address] [address], [place], [address] [facility] [employer] 12:13:23 Problem Notes None recorded. Medical Equipment [...] Address Organization Details Last Updated DateTime 08/03/2022 14429.42 g 98 [degF] 34.1 kg/m2 170.18 cm Areli Flores RN [employer] 08/03/2022 11:47:15 Social History None recorded. Functional [...] HAVE YOU BEEN HOSPITALIZED OR SEEN IN E ER IN THE PAST YEAR ? N [...] SNOMED-CT Code Diagnosis ICD10 Code Diagnosis Note [id number] Stewart Calderon MD [facility] [address] [place] [address] 08/03/2022 11:30:18 08/03/2022 12:15:03 Impacted cerumen of bilateral ears [id number] [id number] H61.23 Health Concerns Section Related Observation LastModified by Organization Detai ls LastModified Time None Recorded Concern Status LastModified by Organization Details LastModified Time None Recorded Advance Directives Directive None Recorded Payers Insurance Date Sequence Insurance Name Policy Number Policy Lezama Covered Member ID Lezama Member ID Guarantor Name 07/31/2022 1 [facility] Savage Morales [id number] Savage Morales Notes Date Note Type Note Provider Name and Address Organization Details Recorded Time 08/03/2022 text/html Patient reports tenderness hand recurrent cerumen impaction. Stewart Calderon MD [address] [place] [address], [place], [address], [facility] 08/03/2022 12:14:05
--- OUTSIDE RECORDS SUMMARY | 2024-11-08 09:32 | XMS_ITS | Clinical Summary ---
Author Organization [facility] [employer] Address [address] [place] [address] Care Team Providers Care Offline Editor Name Role Phone Ronn Miller MD Primary Care Provider [phone] Source Comments [facility] [employer],non-[facility] Affiliates and Associated Physician Practices is amultiple site organization consisting of ambulatory clinics and hospital sitesin [place], [place], [place] and [place]. This disclosure is being madepursuant to the Care Everywhere program and may not contain all information available regarding this patient. Last updated 18.[facility] [employer] Allergies No known active allergies Medications * [...] Comments Blood Pressure 163/94 04/23/2020 4:16 PM PLASTIC SHAPER Pulse 93 04/23/2020 4:16 PM PLASTIC SHAPER Temperature 35.9 C (96.7 F) 04/23/2020 3:36 PM PLASTIC SHAPER Respiratory Rate 13 04/23/2020 4:16 PM PLASTIC SHAPER Oxygen Saturation 92% 04/23/2020 4:16 PM PLASTIC SHAPER Inhaled Oxygen Concentration - - Weight 98.4 [...] this topic Medical Devices Implanted Type Area Certified Health Education Specialist Device Identifier Shelf Expiration Date Model / Serial / Lot Lens Iol 0 D +21 Edi Mod L Acrsf Iq - [id number] Implanted:Qty: 1 on 04/23/2020 by Glen Mace MD at [facility] Left: Eye [employer] 11/22/2022 [id number] / [id number] / Band Rtnl 125x2x.75mm Susie Crc Implanted:Qty: 1 on 04/23/2020 by Glen Mace MD at [facility] Left: Eye [employer] 01/08/2024 92-01 / / Tire Rtnl 2.5mm Grv Cnvx Susie 7mm Sty 287 Implanted:Qty: 1 on 04/23/2020 by Glen Mace MD at [facility] Left: Eye [employer] 08/07/2024 92-17 / / Insurance [facility] Address: [address] [address] Care Teams Offline Editor Relationship Specialty Start Date End Date Ronn Miller MD [address] [place] [address] PCP - General Family Medicine 04/02/20
--- OUTSIDE RECORDS SUMMARY | 2024-11-08 09:32 | XMS_ITS | Clinical Summary ---
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
--- OUTSIDE RECORDS SUMMARY | 2024-11-08 09:32 | XMS_ITS | Referral Summary ---
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
--- OUTSIDE RECORDS SUMMARY | 2024-11-08 09:32 | XMS_ITS | Clinical Summary ---
Author Organization [facility] Address [address] [place] [address] Care Team Providers Care Garage Worker Name Role Phone None, Provider Primary Care [...] Comments Blood Pressure 144/99 03/27/2020 9:08 PM THERAPIST PHYSICAL Pulse 116 03/27/2020 9:07 PM THERAPIST PHYSICAL Temperature 36.9 C (98.4 F) 03/27/2020 9:07 PM THERAPIST PHYSICAL Respiratory Rate 20 03/27/2020 9:07 PM THERAPIST PHYSICAL Oxygen Saturation 95% 03/27/2020 9:09 PM THERAPIST PHYSICAL Inhaled Oxygen Concentration - - Weight 97.5 kg (215 lb) 03/27/2020 9:07 PM THERAPIST PHYSICAL Height 170.2 cm (5' 7) 03/27/2020 9:07 PM THERAPIST PHYSICAL Body Mass Index 33.67 03/27/2020 9:07 PM THERAPIST PHYSICAL Plan of Treatment Health Maintenance Due Date [...] topic Insurance [facility] Care Teams Garage Worker Relationship Specialty Start Date End Date None, Provider, PCP - General 03/27/20
--- NOTE | 2024-11-08 10:17 | EST_ITS ---
Patient Info Name: Savage Morales Age: 69 years : 1955 Gender: Male Ht: 67 in Wt: 215 lbs BSA: 2.18 m2 HR: 81 bpm BP: 132 / 92 mmHg Exam Date: 11/08/2024 10:17 AM Patient Status: O Admit Date: 11/08/2024 Exam Type: CA stress bryon w NM A regadenoson stress test was performed. Staff Referring Physician: Won Mcginnis DO Attending Provider: Won Mcginnis DO Exercise Technologist: Nita Jean Baptiste Exercise Physician: Won Mcginnis DO Summary 1. 1. Negative lexiscan stress test for ischemic ST changes by ECG criteria. 2. 2. Stable hemodynamics throughout the test. 3. 3. Nuclear scan to follow and will be reported separately. Please correlate with it. 4. 4. Patient informed of the above results. Protocol: Lexiscan Stress ECG Details Stage: REST Duration (min): 3 min : 29 sec HR (bpm): 74 SBP (mmHg): 132 DBP (mmHg): 92 Stage: REST Duration (min): 18 min : 45 sec HR (bpm): 77 SBP (mmHg): 132 DBP (mmHg): 92 Stage: STAGE 1 Duration (min): 1 min : 0 sec HR (bpm): 77 SBP (mmHg): 132 DBP (mmHg): 92 Stage: RECOVERY Duration (min): 1 min : 0 sec HR (bpm): 105 SBP (mmHg): 164 DBP (mmHg): 103 Stage: RECOVERY Duration (min): 2 min : 0 sec HR (bpm): 91 SBP (mmHg): 164 DBP (mmHg): 103 Stage: RECOVERY Duration (min): 3 min : 0 sec HR (bpm): 88 SBP (mmHg): 152 DBP (mmHg): 101 Stage: RECOVERY Duration (min): 3 min : 18 sec HR (bpm): 92 SBP (mmHg): 152 DBP (mmHg): 101 Rest HR: 77 bpm Peak HR: 108 bpm Rest Sys BP: 132 mmHg Peak Sys BP: 164 mmHg Max Pred HR: 153 bpm % Max Pred HR: 71 % Target HR: 130 bpm Max RPP: 17,712 bpm*mmHg Termination Reason: Completed protocol Cardiac Symptoms: Shortness of breath Total Time: 1 min : 0 sec Rest Plascencia BP: 92 mmHg Peak Plascencia BP: 103 mmHg Total Dose: 0.4 mg Resting ECG Atrial fibrillation. Stress ECG No ST changes. Arrhythmias None. Report Signatures Amended by Won Mcginnis DO on 11/08/2024 11:55 AM
== END 2024-11-08 09:20 | disposition home or self-care (01) ==
PROVIDERS: PCP Family Medicine; Visit Provider Internal Medicine Cardiovascular Disease
DX: I21.29 ST elevation (STEMI) myocardial infarction involving other sites (principal); I48.91 Unspecified atrial fibrillation
CPT/HCPCS: 78452; 93017; A9502; J2785

== ENCOUNTER 2025-01-16 00:12 | Day surgery (SDC) | payer MEDICARE, SELFPAY ==
--- OUTSIDE RECORDS SUMMARY | 2021-04-23 10:35 | XMS_ITS | Continuity of Care Document ---
Author Organization [facility] Address [address] [address] [place] [address] Phone Care Team Providers Care Hr Generalist Name Role Phone Valentin Castellanos MD Unavailable Unavailable Allergies, Adverse Reactions, Alerts Substance Reaction Status Criticality No Known Allergies Active No Inform ation Procedures Procedure Date OFFICE/OUTPATIENT VISIT, [facility] Advance Directives Directive Yes / No Effective Date File Name No Information Encounters Encounter Description Practice Location Reason(s) For Visit Diagnoses Date Provider Providers Copied on Encounter OFFICE/OUTPAT IENT VISIT, [facility], [address] [place], [id number], [place] tel:[phone] [facility] back pain1 (chief complaint) PneumoniaLumbago with sciatica, left side Emanuel Hanson. [address], [facility] [place], [id number] , [place]. tel:[phone] Family History Family Member Type Diagnosis Age At Onset No Information Payers Payer name Insurance type Covered green party ID Authoriza tion(s) No Information Social History Type Description Quantity Date Captured Comments Alcohol Use Details beer 1 beer weekly Caffeine Use Details Unknown Tobacco Use Status Current non-smoker Smoking Status Never smoker Non-Smoking Tobacco Use Details : No Details Available : No Details Available Sex Male Vital Signs Date / Time: Height Weight BMI Pulse Rate Blood Pressure Temperature Respiratory Rate Body Surface Area Head Circumference BMI percentile Pulse Ox Inhaled Ox 3:35 PM 66.00 in 204.00 lbs 32.9 3 kg/m eter (2) 82 /min 136/84 mm[Hg] 98.3 F 18 /min Chief Complaint And Reason For Visit From encounter dated '04/23/2021 15:35'. back pain1 (chief complaint). Description: Pt has chronic low back pain with left sciatica. Pt has history of Lumbar spine fusion many years ago Pt has mild left leg numbness or tingling Pt denies any recent injury Pt denies any saddle are paresthesia. Pt went to ER 10 days ago due to back pain which showed spondylosis of T and L spine. While he was at Er. he had Ct done which showed atypical pneumonia. Pt denies any fever or sob or cough. Pt had mild dry cough 4 weeks ago which resolved after several days Pt denies any fever, chill, loss of taste and smell or sob. Pt is fully vaccinated for COVID. Currently he denies any upper respiratory symptoms. Pt was given amoxicillin and Z lupe which he just finished today. Pt currently does not have any active respiratory symptoms Plan Of Treatment Date Type Action Status Referral Ordered: CHEST X-RAY PA/LAT TWO-VIEWS ordered History Of Present Illness Encounter Date Complaint History Of Prese nt Illness back pain1 Pt has chronic l ow back pain with left sciatica. Pt has history of Lumbar spine fusion many years ago Pt has mild left leg numbness or tingling Pt denies any recent injury Pt denies any saddle are paresthesia. Pt went to ER 10 days ago due to back pain which showed spondylosis of T and L spine. While he was at Er. he had Ct done which showed atypical pneumonia. Pt denies any fever or sob or cough. Pt had mild dry cough 4 weeks ago which resolved after several days Pt denies any fever, chill, loss of taste and smell or sob. Pt is fully vaccinated for COVID. Currently he denies any upper respiratory symptoms. Pt was given amoxicillin and Z lupe which he just finished today. Pt currently does not have any active respiratory symptoms Instructions Date Instruction Additional Infor mation No Information Assessments Type Assessment Date assessment Pneumonia assessment Lumbago with sciatica, left side Mental Status Date Cognitive Assessment Orientation - [place] ed to time, place, person, situation.Normal Orientation
[2025-01-15 09:35] VITALS: BMI 31.1
--- OUTSIDE RECORDS SUMMARY | 2025-01-16 00:15 | XMS_ITS | Clinical Summary ---
Author Organization [facility] [employer] Address [address] [place] [address] Care Team Providers Care Cafe Associate Name Role Phone Ronn Miller MD Primary Care Provider [phone] Source Comments [facility] [employer],non-[facility] Affiliates and Associated Physician Practices is amultiple site organization consisting of ambulatory clinics and hospital sitesin [place], [place], [place] and [place]. This disclosure is being madepursuant to the Care Everywhere program and may not contain all information available regarding this patient. Last updated 18.[facility] [employer] Allergies No known active allergies Medications * [...] Comments Blood Pressure 163/94 04/23/2020 4:16 PM DEV OPS ENGINEER Pulse 93 04/23/2020 4:16 PM DEV OPS ENGINEER Temperature 35.9 C (96.7 F) 04/23/2020 3:36 PM DEV OPS ENGINEER Respiratory Rate 13 04/23/2020 4:16 PM DEV OPS ENGINEER Oxygen Saturation 92% 04/23/2020 4:16 PM DEV OPS ENGINEER Inhaled Oxygen Concentration - - Weight 98.4 [...] season) 2024 DEPRESSION SCREENING 05/10/2024 INFLUENZA VACCINE (#1) 2025 Respiratory Syncytial Virus (RSV) Vaccine Pt: [...] this topic Medical Devices Implanted Type Area Firestopper Technician Device Identifier Shelf Expiration Date Model / Serial / Lot Lens Iol 0 D +21 Edi Mod L Acrsf Iq - [id number] Implanted:Qty: 1 on 04/23/2020 by Glen Mace MD at [facility] Left: Eye [employer] 11/22/2022 [id number] / [id number] / Band Rtnl 125x2x.75mm Susie Crc Implanted:Qty: 1 on 04/23/2020 by Glen Mace MD at [facility] Left: Eye [employer] 01/08/2024 92-01 / / Tire Rtnl 2.5mm Grv Cnvx Susie 7mm Sty 287 Implanted:Qty: 1 on 04/23/2020 by Glen Mace MD at [facility] Left: Eye [employer] 08/07/2024 92-17 / / Insurance [employer] Care Teams Cafe Associate Relationship Specialty Start Date End Date Ronn Miller MD [address] [place] [address] PCP - General Family Medicine 04/02/20
--- OUTSIDE RECORDS SUMMARY | 2025-01-16 00:15 | XMS_ITS | Clinical Summary ---
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
--- OUTSIDE RECORDS SUMMARY | 2025-01-16 00:15 | XMS_ITS | Clinical Summary ---
Author Organization [facility] Address [address] [place] [address] Care Team Providers Care Clerical Coordinator Name Role Phone None, Provider Primary Care [...] Comments Blood Pressure 144/99 03/27/2020 9:08 PM IRRIGATOR HEAD Pulse 116 03/27/2020 9:07 PM IRRIGATOR HEAD Temperature 36.9 C (98.4 F) 03/27/2020 9:07 PM IRRIGATOR HEAD Respiratory Rate 20 03/27/2020 9:07 PM IRRIGATOR HEAD Oxygen Saturation 95% 03/27/2020 9:09 PM IRRIGATOR HEAD Inhaled Oxygen Concentration - - Weight 97.5 kg (215 lb) 03/27/2020 9:07 PM IRRIGATOR HEAD Height 170.2 cm (5' 7) 03/27/2020 9:07 PM IRRIGATOR HEAD Body Mass Index 33.67 03/27/2020 9:07 PM IRRIGATOR HEAD Plan of Treatment Health Maintenance Due Date Last Done Comments Colorectal Cancer Screening Colonoscopy (10 Years) 1955 Hepatitis C 08/10/1975 DTaP, Tdap and Td Vaccines ( 1 - Tdap) 1976 Pneumococcal Vaccine: 50+ Ye ars (1 of 1 - PCV) 08/10/2007 Zoster Vaccines (1 of 2) 08/10/2007 COVID-19 Vaccine ( - 2023-2 5 season) 2025 RSV Immunization or 60+ Years (1 - [...] age to complete this topic Insurance [facility] Care Teams Clerical Coordinator Relationship Specialty Start Date End Date None, Provider, PCP - General 03/27/20
--- NOTE | 2025-01-16 07:00 | ECG_ITS ---
Test Date: 2025-01-16 09:50:09 Measurements Intervals [place] Rate: 101 P: 0 OR: 0 QRS: 68 QRSD: 128 T: -4 QT: 363 QTc: 472 Interpretive Statements ATRIAL FIBRILLATION WITH RAPID VENTRICULAR RESPONSE INCOMPLETE RIGHT BUNDLE BRANCH BLOCK ABNORMAL ECG Compared to ECG 03/09/2024 17:02:18 VENTRICULAR RESPONSE IS MORE CONTROLLED Electronically Signed On 01-17-2025 15:39:58 CDT by Michael Cool M.D.
--- NOTE | 2025-01-16 07:12 | WPDANESEPPF ---
Anes - Initial Pre Proc Eval Procedure: Operation Date: 01/16/25 08:00 Proposed Procedures p Electrical Cardioversion - Won Mcginnis DO s Trans Esophageal Echo - Won Mcginnis DO Date/Time: 01/16/25 07:12 Surgeon: Won Mcginnis DO Pre Op Diagnosis: a-fib Patient Data Age: 69 Gender: M Height: 1.73 m Weight: 93 kg Allergies Allergy/AdvReac Type Severity Reaction Status Date / Time No Known Allergies Allergy Mild Verified 01/15/25 09:34 Home Medications ?Medication ?Instructions ?Recorded ?Confirmed ?Type rivaroxaban 20 mg tablet (Xarelto) 20 mg PO DAILY #30 tabs 09/03/24 01/15/25 Rx digoxin 125 mcg (0.125 mg) tablet 125 mcg PO QAM #30 tabs 10/02/24 01/15/25 Rx metoprolol tartrate 50 mg tablet 100 mg (2 x 50 mg) PO Q12HR #360 11/21/24 01/15/25 Rx tabs flecainide 100 mg tablet 100 mg PO Q12H #60 tabs 01/09/25 01/15/25 Rx Patient hx anesthesia problems: none Family hx anesthesia problems: none Results Review: All pre-operative results and documents have been reviewed as part of the pre-operative evaluation. 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 He is single and has never been . He does not have children. He and his brother live in the same farm house that they were raised in. He has a medium-sized dog at home. Code status: Full code (he would not want to be on long-term ventilator support) Surrogate decision maker: Josh Morales (brother) Smoking status: Never smoker Second hand tobacco smoke exposure: No Alcohol intake: current Drinks per week: 5 Substance use: never Substance use type: does not use Do You Feel Safe in your Home?: Yes Lack of Transportation: No Lack of Food: Never True Current Housing: I Have Housing Concerned About Future Housing: No Difficulty Paying Gas/Electric Bills: No Difficulty Paying for Meds: No Currently Unemployed: No Education: Decline to Answer Difficulty w/ Childcare or Family Care: No Living arrangements: with family Occupation/Education: occupation 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 Gender identity (if verbalized by the patient): Male Sexual Orientation (if Verbalized by the Patient): Straight or Heterosexual Spiritual care concerns: No Agree to blood products: Yes Anes - Eval Final PreProcedure Day of Procedure 01/16/25 07:12 Patient weight: obese Heart: regular rate and rhythm Lungs: clear to auscultation Airway: Mallampati scale class II Neurological: alert and oriented Last oral intake: >/= 8 hours ASA classification: III Emergent: no Anesthetic plan: proceed Anesthesia type and monitoring: general GIVS and standard monitoring Results Review: All pre-operative results and documents have been reviewed as part of the pre-operative evaluation. Informed Consent: The patient's anesthetic plan and its attendant risks and benefits were discussed with the patient/family/POA. Questions were solicited and answers provided to the satisfaction of the patient/family/POA.
[2025-01-16 07:31] VITALS: BP 161/117; PULSE 101; RESP 18; O2SAT 99
[2025-01-16 07:53] LABS: Anion Gap 10 mmol/L (4-12); Blood Urea Nitrogen 24 mg/dL (9-20); Calcium 9.3 mg/dL (8.4-10.2); Carbon Dioxide 23 mmol/L (22-30); Chloride 108 mmol/L (98-107); Estimated CRCL calculation 62 ml/min; Estimated Glomerular Filt Rate > 60; Glucose 111 mg/dL (65-110); Magnesium 1.9 mg/dL (1.6-2.3); Potassium 4.0 mmol/L (3.4-5.0); Sodium 141 mmol/L (137-145)
--- NOTE | 2025-01-16 08:00 | ECHO_ITS ---
Patient Info Name: Savage Morales Age: 69 years : 1955 Gender: Male Ht: 68 in Wt: 205 lbs BSA: 2.14 m2 HR: 101 bpm BP: 135 / 97 mmHg Heart Rhythm: Atrial Fibrillation Technical Quality: Good Exam Date: 01/16/2025 6:52 AM Patient Status: unknown Admit Date: 01/16/2025 Exam Type: CA echo transesophageal Complete two-dimensional, color flow and Doppler transesophageal study is performed. 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 Left ventricular chamber dimension is normal. 2. Left ventricular systolic function is normal with an ejection fraction of 60-65% by visual estimation. 3. There is moderate concentric increased left ventricular wall thickness. 4. The left ventricular diastolic function is indeterminate as it was not assessed. 5. Left atrial chamber dimension is moderately enlarged. 6. Agitated saline injection opacified right side cardiac chambers with few bubbles shunt to left side cardiac chambers suggestive of patent foramen ovale. 7. There is mild mitral valve regurgitation. Procedure Details Risks/benefits/alternative to GIA discuss with patient and he gave informed consent. He was monitored electrocardiographically, vitals and pulse ox. He was in atrial fibrillation at 100 bpm, BP 140/80 mmHg, pulse ox 99% of 2 L/M NC. Cetacaine spray x 1 to posterior oropharynx. Sedation provided by anesthesiology service. GIA probe advanced into esophagus without incident. Multiple images obtained. Agitated saline administered. GIA probe withdrawn and no blood noted on probe tip. He tolerated procedure well with no complications. Left Ventricle Left ventricular chamber dimension is normal. Left ventricular systolic function is normal with an ejection fraction of 60-65% by visual estimation. There is moderate concentric increased left ventricular wall thickness. The left ventricular diastolic function is indeterminate as it was not assessed. Right Ventricle Right ventricular chamber dimension is normal. Right ventricular systolic function is normal. Left Atria Left atrial chamber dimension is moderately enlarged. Right Atria Right atrial chamber dimension is normal. Atrial Septum Suspected patent foramen ovale visualized by 2D, color flow and agitated saline imaging. Agitated saline injection opacified right side cardiac chambers with few bubbles shunt to left side cardiac chambers suggestive of patent foramen ovale. Atrial Appendage There is no thrombus visualized in the left atrial appendage. Aortic Valve The aortic valve is trileaflet. There is no aortic valve stenosis. There is no aortic valve regurgitation. Pulmonic Valve There is no pulmonic regurgitation. Mitral Valve There is no mitral valve stenosis. There is mild mitral valve regurgitation. Tricuspid Valve There is no tricuspid valve regurgitation. Pericardium/Pleural There is no pericardial effusion. Inferior Vena Cava Inferior vena cava is not well visualized. Aorta The aortic root size at the sinus of Valsalva is normal. Report Signatures
--- NOTE | 2025-01-16 08:00 | ECG_ITS ---
Test Date: 2025-01-16 10:26:16 Measurements Intervals [place] Rate: 56 P: -17 DC: 193 QRS: -5 QRSD: 121 T: 10 QT: 419 QTc: 406 Interpretive Statements SINUS BRADYCARDIA LEFTWARD AXIS CONSIDER PREVIOUS INFERIOR INFARCTION INCOMPLETE RIGHT BUNDLE BRANCH BLOCK ABNORMAL ECG Compared to ECG 01/16/2025 09:50:09 SINUS RHYTHM REPLACES ATRIAL FIBRILLATION Electronically Signed On 01-17-2025 15:43:19 CDT by Michael Cool M.D.
[2025-01-16 08:15] VITALS: BP 115/75; PULSE 55; RESP 14; O2SAT 94
--- NOTE | 2025-01-16 08:19 | WPDCARDVER ---
Cardioversion Cardioversion Date of procedure: 01/16/25 Procedure: DC cardioversion Pre-op diagnosis: atrial fibrillationi Post-op diagnosis: Same Indications: Symptomatic atrial fibrillation Description of procedure: Risks/benefits/alternative to cardioversion discuss with patient and he gave informed consent. Patient just had GIA which showed no thrombus in left atrial appendage or left atrium. He was sedated as per anesthesiology service. He was monitored electrocardiographically, vitals and pulse ox. He was in atrial fibrillation at 103 bpm, BP 140/70 mmHg, pulse ox 99% on NC 2 l/m. Defibrillator pads placed on anterior and posterior chest wall. Defibrillation set at 200 J synchronized biphasic energey and with 1 shock it restored sinus rhythm. HR at 56 bpm, BP 130/80 mmHg. Patient tolerated procedure well with no complications. Sedation: As per anesthesiology Conclusion: 1. Successful DC cardioversion from atrial fibrillation to Sinus rhythm. 2. Stop Digoxin and decrease Metoprolol Tartate 50 mg BID. [facility] Billing for Cardioversion: Cardioversion
[2025-01-16 08:30] VITALS: BP 105/76; PULSE 59; RESP 15; O2SAT 97
[2025-01-16 08:45] VITALS: BP 105/70; PULSE 52; RESP 16; O2SAT 95
[2025-01-16 09:00] VITALS: BP 113/73; PULSE 55; RESP 14; O2SAT 96
[2025-01-16 09:15] VITALS: BP 109/76; PULSE 57; RESP 15; O2SAT 93
== END 2025-01-16 09:19 | disposition home or self-care (01) ==
PROVIDERS: PCP Family Medicine; Visit Provider Internal Medicine Cardiovascular Disease
PROC: 5A2204Z Restoration of Cardiac Rhythm, Single (ICD-10-PCS; principal; 2025-01-16 08:00)
PROC: (CPT 93312; 2025-01-16 08:00)
DX: I48.91 Unspecified atrial fibrillation (principal); I10 Essential (primary) hypertension; I45.10 Unspecified right bundle-branch block; I34.0 Nonrheumatic mitral (valve) insufficiency; R94.31 Abnormal electrocardiogram [ECG] [EKG]; I45.5 Other specified heart block; G47.33 Obstructive sleep apnea (adult) (pediatric); E66.9 Obesity, unspecified; Z68.31 Body mass index [BMI] 31.0-31.9, adult; Z79.01 Long term (current) use of anticoagulants; Z99.89 Dependence on other enabling machines and devices; Z98.890 Other specified postprocedural states; Z98.1 Arthrodesis status; Z80.3 Family history of malignant neoplasm of breast; Z80.0 Family history of malignant neoplasm of digestive organs
CPT/HCPCS: 36415; 80048; 83735; 92960; 93312; 93320; 93325; J2250; J2704; J3010; J7030